=== PATIENT | female | born 1935 | race Caucasian/White ===

== ENCOUNTER 2016-04-08 10:45 | Day surgery (SDC) | payer MEDICARE, OTHER ==
[~2016-04-08 10:45] MED LIST: B-COTAB41 PO; BIOT10004 PO; DICL50TA3 PO; ESCI20TA PO; ESTR0.5T PO; LORA0.5T PO; MECL25CH PO; MEDR2.5T19 PO; MIRA50TA PO; SIMV40TA OR
[2016-04-08] MEDS ORDERED: MEDR2.5T2 PO (12:00)
[2016-04-08] MEDS ORDERED: ESCI20TA PO (12:00)
[2016-04-08] MEDS ORDERED: DICL75TA PO (12:00)
[2016-04-08] MEDS ORDERED: ESTR0.5T PO (12:00)
[2016-04-08] MEDS ORDERED: LORA-373 PO (12:00)
[2016-04-08] MEDS ORDERED: ESTR.3 PO (12:01)
[2016-04-08] MEDS ORDERED: UMEC1AER INH (12:01)
[2016-04-08] MEDS ORDERED: SIMV40TA PO (12:01)
[2016-04-08] MEDS ORDERED: ceFAZolin INJ 1,000 MG VIAL ONE (12:10)
[2016-04-08] MEDS ORDERED: MIDAZOLAM HCL 2 MG/2 ML VIAL ONE (12:11)
[2016-04-08] MEDS ORDERED: LIDOCAINE HCL 2% 50 ML VIAL ONE (12:40)
[2016-04-08] MEDS ORDERED: ceFAZolin 2 GM PREMIX 50 ML IV SCH (12:45)
[2016-04-08] MEDS ORDERED: VANCOMYCIN 1000 MG/NS 250 ML IV SCH ×2 (12:45)
[2016-04-08] MEDS ORDERED: CHLORHEXIDINE GLUCONATE 2 % 1 PACK (2 CLOTHS) TOP SCH (12:45)
[2016-04-08] MEDS ORDERED: MUPIROCIN 2% OINT 1 APPLIC/GM SYR NASAL SCH (12:45)
[2016-04-08] MEDS ORDERED: POVIDONE IODINE 5% (ANTISEPSIS KIT) 4 APPLICATIONS EACH NARE SCH (12:45)
[2016-04-08] MEDS ORDERED: NS 1000 ML IV SCH (12:45)
--- NOTE | 2016-04-08 13:37 | MA ---
cc: RASHARD VELEZ MD DATE: 04/08/2016 PREPROCEDURE DIAGNOSIS: Transient ischemic attack/ cerebrovascular accident. POSTPROCEDURE DIAGNOSIS: Successful loop recorder insertion. PROCEDURE PREFORMED: Loop recorder insertion with moderate sedation. DESCRIPTION OF THE PROCEDURE: The patient was brought to the DOC unit in the post ictal state after informed consent was obtained, 2 mg of Versed and 15 mcg of Fentanyl were given for moderate IV sedation. Next a WedWu reveal link loop recorder was then inserted subcutaneously in the left chest without complication. Tachy-Abhilash pause in atrial fibrillation detection was enabled. The serial number was [id number]. The initial R-wave was 0.2 millivolts. MD JOSE MARIA Kong/everette /1:16 PM /1:17 PM
== END 2016-04-08 14:43 | disposition home or self-care (01) ==
LOC: HDOC 10:45 → HDIC 10:46 → HDOC 14:43
PROVIDERS: ATTEND Nuclear Medicine Nuclear Cardiology
DX: G45.9 Transient cerebral ischemic attack, unspecified (principal); R55 Syncope and collapse; R94.31 Abnormal electrocardiogram [ECG] [EKG]; E78.5 Hyperlipidemia, unspecified
CPT/HCPCS: 33282; C1764; J0690; J2250; J3010

== ENCOUNTER 2017-07-26 09:28 | Inpatient (IN) | payer MEDICARE, OTHER ==
[~2017-07-26] VITALS: Ht 162.6 cm; Wt 57.8 kg
[2017-07-26] VITALS (8 sets, daily range): BP systolic 122–151; BP diastolic 59–67; PULSE 86–95; RESP 18–20; TEMP 97.6–98; O2SAT 89–97
[~2017-07-26 09:28] MED LIST changes: +ALEV220T14 PO; +ASPI81TA23 PO; -B-COTAB41 PO; -BIOT10004 PO; -DICL50TA3 PO; +DICL75TA PO; -MECL25CH PO; -MEDR2.5T19 PO; +MEDR2.5T2 PO; -MIRA50TA PO; +MONT10TA4 PO; +OXYB15TA PO; -SIMV40TA OR; +SIMV40TA PO; +UMEC1AER INH
[2017-07-26] MEDS ORDERED: DULC10SU3 RECTAL (09:52)
[2017-07-26] MEDS ORDERED: HYDR-3133 PO (09:52)
[2017-07-26] MEDS ORDERED: HUMALOG SQ (09:52)
[2017-07-26] MEDS ORDERED: MILKSUS PO (09:52)
[2017-07-26] MEDS ORDERED: MIRT30TA PO (09:52)
[2017-07-26] MEDS ORDERED: DIPH25CA PO (09:52)
[2017-07-26] MEDS ORDERED: ACET25TA4 PO (09:52)
[2017-07-26] MEDS ORDERED: CIPR750T2 PO (09:52)
[2017-07-26] MEDS ORDERED: IPRASOL INH (09:52)
[2017-07-26] MEDS ORDERED: MEDR5TAB3 PO (09:52)
[2017-07-26] MEDS ORDERED: PRED10 PO (09:52)
[2017-07-26] MEDS ORDERED: CITRSOL4 PO (09:52)
[2017-07-26] MEDS ORDERED: SODIUM CHLORIDE 0.9% FLUSH 10 ML FLUSH IVF PRN (10:15)
--- NOTE | 2017-07-26 10:24 | PD ---
HPI Chief Complaint: ENT Complaint Time Seen by Provider: 10:02 Travel History International Travel<30 days: No Contact w/Intl Traveler<30days: No Traveled to known affect area: No History of Present Illness HPI This patient is sent from the long term due to shortness of breath. She reports a history of pulmonary fibrosis and wears 2 L nasal cannula around-the- clock. She has some dry cough and laryngitis which started yesterday. She denies fever or chest pain. Symptom severity is moderate. No alleviating factors. No exacerbating factors. She is getting IV antibiotics through a right arm PICC line, she says for pulmonary infection [facility] Past Medical History Arthritis: Yes (BACK) High Cholesterol: Yes Gastrointestinal Disorders: Yes ("WEAK STOMACH" RUPTURED COLON) Genitourinary: Yes (INCREASED URINATION AT NIGHT) Herniated Disk: Yes Implanted Vascular Access Dvce: Yes Respiratory: No Menopausal: Yes : 4 Para: 2 Miscarriage: 2 Past Surgical History Abdominal Surgery: Yes (colostomy reversed 1996) Eye Surgery: Yes (cataracts removed) Other Surgery: Yes (CHILDHOOD L3-L4 DISC REPAIR) Social History Alcohol Use: Yes (SOCIAL) Tobacco Use: No Substance Use: No Allergies-Medications (Allergen,Severity, Reaction): Coded Allergies: codeine (Unverified Allergy, Intermediate, HIVES, 07/26/17) phenobarbital (Unverified Allergy, Unknown, 07/26/17) Reported Meds & Prescriptions Reported Meds & Active Scripts Active Reported Prednisone 10 Mg Tab 10 Mg PO DAILY Mirtazapine 30 Mg Tab 30 Mg PO HS Milk of Magnesia Liq (Magnesium Hydroxide) 400 Mg/5 Ml Susp 30 Ml PO DAILY PRN Medroxyprogesterone Acetate 5 Mg Tab 2.5 Mg PO DAILY Start day 21 Hydroxyzine HCl 25 Mg Tab 25 Mg PO Q8HR Humalog Inj (Insulin Human Lispro) 1,000 Unit/10 Ml Vial 0-10 Units SQ ACHS Max dose at bedtime:( )units; sugars< 70,(0)units; sugars 150-199,(1)unit; sugars 200-249,(3)units; sugars 250-299,(5)units; sugars 300-349,(7)units; sugars more than 349,(9)units. Duoneb (Ipratropium-Albuterol Neb) 0.5-2.5 Mg/3 Ml Neb 1 Nebule INH Q4HR NEB Dulcolax Supp (Bisacodyl) 10 Mg Supp 10 Mg RECTAL DAILY PRN Citroma Liq (Magnesium Citrate) 300 Ml Liq 300 Ml PO DIRECTED Ciprofloxacin (Ciprofloxacin HCl) 750 Mg Tab 750 Mg PO BID Diphenhydramine (Diphenhydramine HCl) 25 Mg Cap 25 Mg PO Q8HR Acetaminophen Pm Extra St (Diphenhydramine-Acetaminophen) 500-25 mg Tab 500 Mg PO HS PRN Oxybutynin ER 24 HR (Oxybutynin Chloride) 15 Mg Tab 5 Mg PO DAILY Montelukast (Montelukast Sodium) 10 Mg Tab 10 Mg PO HS Simvastatin 40 Mg Tab 40 Mg PO HS Lorazepam 0.5 Mg Tab 0.5 Mg PO Q8HR PRN Estradiol 0.5 Mg Tab 0.5 Mg PO DAILY Escitalopram (Escitalopram Oxalate) 20 Mg Tab 20 Mg PO DAILY Review of Systems General / Constitutional: No: Fever Eyes: No: Visual changes HENT: Positive: Sore Throat, No: Headaches Cardiovascular: No: Chest Pain or Discomfort Respiratory: Positive: Cough, Shortness of Breath Gastrointestinal: No: Abdominal Pain Genitourinary: No: Dysuria Musculoskeletal: No: Pain Skin: No Rash Neurologic: No: Weakness Psychiatric: No: Depression Endocrine: No: Polydipsia Hematologic/Lymphatic: No: Easy Bruising Physical Exam Narrative GENERAL: Well-nourished, well-developed patient in no apparent distress. SKIN: Focused skin assessment reveals no rash and nodules. Skin is Warm and dry. HEAD: Atraumatic. Normocephalic. EYES: Pupils equal and round. No scleral icterus. No injection or drainage. ENT: No nasal bleeding or discharge. Mucous membranes pink and moist. NECK: Trachea midline. No JVD. CARDIOVASCULAR: Regular rate and rhythm. No murmur appreciated. RESPIRATORY: No accessory muscle use. Bilateral crackles are present. Breath sounds equal bilaterally. GASTROINTESTINAL: Abdomen soft, non-tender, nondistended. Hepatic and splenic margins not palpable. MUSCULOSKELETAL: No obvious deformities. No clubbing. No cyanosis. No edema. Has a PICC line in the right arm NEUROLOGICAL: Awake and alert. No obvious cranial nerve deficits. Motor grossly within normal limits. Normal speech. PSYCHIATRIC: Appropriate mood and affect; insight and judgment is a bit off but she answers questions reasonably well. Data Data Last Documented VS Vital Signs Date Time Temp Pulse Resp B/P (MAP) Pulse Ox O2 Delivery O2 Flow Rate FiO2 07/26/17 16:16 141/67 (91) 07/26/17 16:09 89 18 94 Nasal Cannula 3.00 07/26/17 09:38 98.0 Orders Orders Complete Blood Count With Diff (07/26/17 10:15) Basic Metabolic Panel (Bmp) (07/26/17 10:15) Arterial Blood Gas (Abg) (07/26/17 10:15) Iv Access Insert/Monitor (07/26/17 10:15) Ecg Monitoring (07/26/17 10:15) Oximetry (07/26/17 10:15) Oxygen Administration (07/26/17 10:15) Chest, Single Ap (07/26/17 10:15) Sodium Chloride 0.9% Flush (Ns Flush) (07/26/17 10:15) Radiology Film Requests (07/26/17 ) (Hub Use Only)Inp Phy Cons/Ref (07/26/17 ) Labs Laboratory Tests Test 07/26/17 10:35 07/26/17 10:38 White Blood Count 9.1 TH/MM3 Red Blood Count 2.95 MIL/MM3 Hemoglobin 8.9 GM/DL Hematocrit 28.2 % Mean Corpuscular Volume 95.7 FL Mean Corpuscular Hemoglobin 30.2 PG Mean Corpuscular Hemoglobin Concent 31.6 % Red Cell Distribution Width 17.4 % Platelet Count 223 TH/MM3 Mean Platelet Volume 7.3 FL Neutrophils (%) (Auto) 68.8 % Lymphocytes (%) (Auto) 18.3 % Monocytes (%) (Auto) 7.5 % Eosinophils (%) (Auto) 5.0 % Basophils (%) (Auto) 0.4 % Neutrophils # (Auto) 6.2 TH/MM3 Lymphocytes # (Auto) 1.7 TH/MM3 Monocytes # (Auto) 0.7 TH/MM3 Eosinophils # (Auto) 0.5 TH/MM3 Basophils # (Auto) 0.0 TH/MM3 CBC Comment DIFF FINAL Differential Comment Blood Urea Nitrogen 27 MG/DL Creatinine 2.08 MG/DL Random Glucose 125 MG/DL Calcium Level 8.4 MG/DL Sodium Level 143 MEQ/L Potassium Level 4.0 MEQ/L Chloride Level 108 MEQ/L Carbon Dioxide Level 23.5 MEQ/L Anion Gap 12 MEQ/L Estimat Glomerular Filtration Rate 23 ML/MIN Blood Gas Puncture Site LT RADIAL Blood Gas Patient Temperature 98.6 Blood Gas HCO3 26 mmol/L Blood Gas Base Excess 2.2 mmol/L Blood Gas Oxygen Saturation 91 % Arterial Blood pH 7.43 Arterial Blood Partial Pressure CO2 40 mmHg Arterial Blood Partial Pressure O2 69 mmHG Arterial Blood Oxygen Content 11.4 Vol % Arterial Blood Carboxyhemoglobin 1.4 % Arterial Blood Methemoglobin 0.7 % Blood Gas Hemoglobin 8.9 G/DL Oxygen Delivery Device NASAL CANNULA Blood Gas Liter Flow 3 L/M MDM Medical Decision Making Medical Screen Exam Complete: Yes Emergency Medical Condition: Yes Medical Record Reviewed: Yes Differential Diagnosis Pulmonary fibrosis, pneumonia, laryngitis Narrative Course I have reviewed the patient's electronic medical record. Reviewed all her long term paperwork including medication list and recent lab studies from 2 days ago IV placed and labs sent I reviewed her chest x-ray which shows a right-sided pneumonia ABG on her 3 L of oxygen shows PO2 of 69 Metabolic profile reveals creatinine of 2.08, up from prior of 1.7 a few days ago Discussed with family members. Patient's son was very upset about the prospect of her being discharged back to the nursing facility. Reports severe dyspnea on exertion and worse today than usual. Patient apparently was found significant hypoxic this morning at the facility. I reviewed with her shift leader and her long term physician. She has multiple reasons to be dyspneic. She has COPD and pulmonary fibrosis and pneumonia Dr. Harry will admit her for further workup Diagnosis Primary Impression: Acute respiratory failure with hypoxia Additional Impressions: COPD exacerbation Near syncope Admitting Information Admitting Physician Requests: Admit Clem Joshua MD Jul 26, 2017 10:24
[2017-07-26 11:10] LABS: AUTOMATED NEUTROPHIL # 6.2 TH/MM3 (1.8-7.7); BASOPHIL % 0.4 % (0.0-2.0); EOSINOPHIL # 0.5 TH/MM3 (0-0.4); HEMATOCRIT 28.2 % (35.0-46.0); HEMOGLOBIN 8.9 GM/DL (11.6-15.3); LYMPH % 18.3 % (9.0-44.0); LYMPHOCYTE # 1.7 TH/MM3 (1.0-4.8); MEAN CELL VOLUME 95.7 FL (80.0-100.0); MEAN CORPUSCULAR HEMOGLOBIN 30.2 PG (27.0-34.0); MEAN CORPUSCULAR HGB CONC 31.6 % (32.0-36.0); MEAN PLATELET VOLUME 7.3 FL (7.0-11.0); MONO % 7.5 % (0.0-8.0); MONOCYTE # 0.7 TH/MM3 (0-0.9); NEUT % 68.8 % (16.0-70.0); PLATELET COUNT 223 TH/MM3 (150-450); RED BLOOD COUNT 2.95 MIL/MM3 (4.00-5.30); RED CELL DISTRIBUTION WIDTH 17.4 % (11.6-17.2); WHITE BLOOD COUNT 9.1 TH/MM3 (4.0-11.0)
--- NOTE | 2017-07-26 11:23 | RADRPT ---
EXAM DATE: 07/26/2017 11:01 AM EDT AGE/SEX: 82 years / Female INDICATIONS: Short of breath. CLINICAL DATA: This is the patient's initial encounter. Patient reports that signs and symptoms have been present for 1 day and indicates a pain score of 0/10. MEDICAL/SURGICAL HISTORY: Chronic obstructive pulmonary disease. None. COMPARISON: POI, CT CHEST W/O CONTRAST, 06/16/2017. . FINDINGS: A single portable frontal view the chest shows a new intra-alveolar opacity within the peripheral asp ects of the right lower lobe. Underlying chronic interstitial changes noted. No effusions. Heart is n ormal in size. Low lung volumes. A degenerative and scoliotic spine. CONCLUSION: 1. New intra-alveolar infiltrate within the right lower lobe. 2. Chronic interstitial changes. Electronically signed by: Fredi Corrigan MD 07/26/2017 11:22 AM EDT
[2017-07-26 11:27] LABS: BICARBONATE 23.5 MEQ/L (21.0-32.0); CALCIUM 8.4 MG/DL (8.5-10.1); CREATININE 2.08 MG/DL (0.50-1.00)
[2017-07-26] MEDS ORDERED: BISACODYL 10 MG SUPP RECTAL PRN ×2 (18:45→19:00)
[2017-07-26] MEDS ORDERED: DIPHENHYDRAMINE ACETAMINOPHEN PO PRN (18:45)
[2017-07-26] MEDS ORDERED: MAGNESIUM HYDROXIDE SUSP 30 ML CUP PO PRN (19:00)
[2017-07-26] MEDS ORDERED: SODIUM CHLORIDE 0.9% FLUSH 10 ML FLUSH IV FLUSH PRN (19:00)
[2017-07-26] MEDS ORDERED: SENNOSIDES 8.6 MG TAB PO PRN (19:00)
[2017-07-26] MEDS ORDERED: LACTULOSE SYRUP 20 GM/30 ML CUP PO PRN (19:00)
[2017-07-26] MEDS ORDERED: NALOXONE HCL 0.4 MG/ML AMP IV PUSH PRN (19:00)
[2017-07-26] MEDS: RESP: ALBUTEROL 2.5 MG/IPRATROPIUM 0.5 MG NEB (SCH) INH ×2 (19:22→23:44)
[2017-07-26] MEDS ORDERED: ACETAMINOPHEN 500 MG CPLT PO PRN (19:30)
[2017-07-26] MEDS: CIPROFLOXACIN 750 MG TAB PO SCH (21:00)
[2017-07-26] MEDS ORDERED: PRAVASTATIN SOD 80 MG TAB PO SCH (21:00)
[2017-07-26] MEDS ORDERED: MIRTAZAPINE 15 MG TAB PO SCH (21:00)
[2017-07-26] MEDS: SODIUM CHLORIDE 0.9% FLUSH 10 ML FLUSH IV FLUSH SCH (23:36)
[2017-07-26] MEDS: SODIUM CHLOR 0.9% 1000 ML INJ 1,000 ML IV SCH (23:36)
[2017-07-26] MEDS: MONTELUKAST SODIUM 10 MG TAB PO SCH (23:36)
[2017-07-26] MEDS: DOCUSATE SODIUM 50 MG/SENNA 8.6 MG TAB PO SCH (23:36)
[2017-07-27] VITALS (13 sets, daily range): BP systolic 107–166; BP diastolic 62–73; PULSE 82–95; RESP 16–20; TEMP 97.6–98.2; O2SAT 90–100
[2017-07-27] MEDS: RESP: ALBUTEROL 2.5 MG/IPRATROPIUM 0.5 MG NEB (SCH) INH ×6 (04:21→23:44)
[2017-07-27 06:25] LABS: AUTOMATED NEUTROPHIL # 4.6 TH/MM3 (1.8-7.7); BASOPHIL % 0.3 % (0.0-2.0); EOSINOPHIL # 0.4 TH/MM3 (0-0.4); EOSINOPHIL % 5.1 % (0.0-4.0); HEMATOCRIT 29.3 % (35.0-46.0); HEMOGLOBIN 9.5 GM/DL (11.6-15.3); LYMPH % 26.5 % (9.0-44.0); MEAN CELL VOLUME 95.2 FL (80.0-100.0); MEAN CORPUSCULAR HEMOGLOBIN 30.8 PG (27.0-34.0); MEAN CORPUSCULAR HGB CONC 32.3 % (32.0-36.0); MEAN PLATELET VOLUME 7.4 FL (7.0-11.0); MONO % 7.3 % (0.0-8.0); MONOCYTE # 0.6 TH/MM3 (0-0.9); NEUT % 60.8 % (16.0-70.0); PLATELET COUNT 208 TH/MM3 (150-450); RED BLOOD COUNT 3.08 MIL/MM3 (4.00-5.30); RED CELL DISTRIBUTION WIDTH 17.4 % (11.6-17.2); WHITE BLOOD COUNT 7.6 TH/MM3 (4.0-11.0)
[2017-07-27 07:00] LABS: BICARBONATE 24.5 MEQ/L (21.0-32.0); CALCIUM 8.5 MG/DL (8.5-10.1); CREATININE 1.94 MG/DL (0.50-1.00)
[2017-07-27] MEDS: SODIUM CHLORIDE 0.9% FLUSH 10 ML FLUSH IV FLUSH SCH ×2 (09:00→20:18)
[2017-07-27] MEDS ORDERED: TOLTERODINE TARTRATE 2 MG CAP LA PO SCH (09:00)
[2017-07-27] MEDS ORDERED: ESCITALOPRAM OXALATE 20 MG TAB PO SCH (09:00)
[2017-07-27] MEDS: diphenhydrAMINE HCL 25 MG CAP PO PRN (09:07)
[2017-07-27] MEDS: DOCUSATE SODIUM 50 MG/SENNA 8.6 MG TAB PO SCH ×2 (09:08→20:18)
[2017-07-27] MEDS: CIPROFLOXACIN 750 MG TAB PO SCH (09:08)
[2017-07-27] MEDS: predniSONE 10 MG TAB PO SCH (09:08)
[2017-07-27] MEDS: ESTRADIOL 1 MG TAB PO SCH (09:08)
[2017-07-27] MEDS: SODIUM CHLOR 0.9% 1000 ML INJ 1,000 ML IV SCH ×2 (11:08→20:19)
[2017-07-27] MEDS: LORazepam 0.5 MG TAB PO PRN ×2 (12:41→22:56)
[2017-07-27] MEDS ORDERED: PILL SPLITTER OTHER PRN (14:15)
--- NOTE | 2017-07-27 14:29 | MB ---
cc: Mateo Marks MD DATE: 07/27/2017 HISTORY OF PRESENT ILLNESS: Ms. Begum is an 82-year-old white female with a history of chronic lung disease. I have taken this history primarily from her 2 children who are at the bedside and seem quite knowledgeable, but she has had an extensive prior history for at least the last 5, possibly 10 years, and she has been followed by Dr. De Leon in [place]. She has known COPD and was a former smoker of about 30-40 pack years, although she did quit smoking 30 years ago. Over the course of the last 6 months; however, she has had a steady decline. She also has pulmonary fibrosis that is a more recent diagnosis and according to the family, a CAT scan in comparison over about the last 6 months has shown significant progression in the fibrotic component of her disease. She has been on oxygen continuously since an initial hospitalization earlier this year in about March in [facility] [place]. She has been rehospitalized there once, has been in an outpatient infusion clinic twice for antibiotics for pseudomonas, and most recently after a hospital discharge was in a nursing facility locally, on oral therapy. The patient presented yesterday from the nursing facility because her O2 saturations were in the 70s. I asked her how she felt, and she said she just felt exhausted. Apparently, there was really no crisis with breathing other than the fact that her sat was low. Today, at the time of this exam, she is sitting upright, comfortable at rest. O2 saturations on 6 liters are 100%. The patient has been hospitalized twice, as I said, in [facility] [place] in the last several months. She was bronchoscoped recently after a CAT scan showed worsening in the fibrosis and the family tells me that she grew Pseudomonas. That is why she has been receiving the IV antibiotics. She denies chest pain or hemoptysis. She is comfortable at rest, but has dyspnea on minimal exertion. There is no significant prior cardiovascular history. On presentation here, and we have no films for comparison, but she has a right lower lobe infiltrate with chronic interstitial fibrotic changes. White count is normal, though, at 7600. Blood gases were actually fine on 3 liters; pO2 of 69, pH 7.4, pCO2 of 40. BUN and creatinine were elevated at 24 and 2. No sputum has been obtained. She is not producing a lot of sputum. PAST MEDICAL HISTORY: Not diabetic. Not hypertensive. No cardiovascular history. She did have a colostomy in about the , apparently "ruptured colon" that was then reversed. She has arthritis in her back, as well as scoliosis. Cataracts have been removed. ALLERGIES: CODEINE. FAMILY HISTORY: She was one of 14 children, 3 have from cancer, 3 have from heart disease. There is no lung disease in the family; in particular, no history of fibrosis. Her father of complication of blood clots in his 80s. Mother of old age late 80s. SOCIAL HISTORY: She is independent. She is . She had been living alone until these recent hospitalizations. These have been very debilitating for her. No excessive alcohol use and no smoking for years. REVIEW OF SYSTEMS: As noted above. No current abdominal complaints. No vomiting or diarrhea. No chronic edema. No orthopnea or PND. PHYSICAL EXAMINATION: VITAL SIGNS: Temperature 98 degrees, pulse is 80, respirations are 18 and nonlabored, O2 saturation on 3 liters 94%. HEENT: Sclerae are anicteric. NECK: Neck veins are flat. CHEST: Reveals a very distinct dry Velcro rales in both lungs, about fpc up in the back. No other congestion. No rhonchi or wheezes. HEART: Regular rhythm. No harsh murmur. EXTREMITIES: Peripheral edema. No calf tenderness. No clubbing. DISCUSSION: Ms. Begum presents with a complex pulmonary history, chronic obstructive pulmonary disease dating back apparently a number of years. More recently, she has developed pulmonary fibrosis, that based on the history that I am provided, has been progressive. Dr. De Leon has been caring for her, both inpatient and outpatient, for quite a long time and through all of these recent difficulties and admissions. She was readmitted here because of the drop in O2 saturation and she is in a local nursing facility here. Actually, based on her 02 saturation, her exam and this additional information, things looked fairly stable at present. The children had many questions, had an interest in knowing whether or not a second opinion could be rendered and I did the best I could to describe what seems apparent to me, but obviously there is a lot of data that I do not have. If she remains stable over the next 24 hours in terms of her O2 saturation, white count, and vital signs, I do not know that additional hospitalization at this point as he going to be an advantage. However, if she does go out and back to the nursing facility, I have suggested she immediately get back in touch with Dr. De Leon, who is her physician on a regular basis for a number of years and is familiar with all of these difficulties. Some discussion of the nature of her disease and whether or not it is reversible, or whether or not they need to consider a palliative care approach, which is something that they have discussed, would best be reviewed with him once she is discharged. Based on the history of having recently documented Pseudomonas, if antibiotics were given, I agree that Cipro is appropriate, but it sounds like she has had a lot of antibiotics recently and I am not sure that they are even necessary at present. Again that would be best addressed by her regular rescue instructor. She is also on a low dose of prednisone, which I would suggest continuing, along with aerosol therapy in light of the prior smoking history. Having no further recommendations acutely at present, I will not follow her regularly. However, if stable, again I have explained to them once she is discharged they should be back in contact with Dr. De Leon immediately so that they can be followed up as an outpatient and resolve some of these questions regarding the more chronic progressive nature of her chronic lung disease. R. MD DANA Ceja/JASON , 01:46 PM , 02:28 PM
[2017-07-27] MEDS: diphenhydrAMINE HCL 50 MG CAP PO PRN (17:10)
--- NOTE | 2017-07-27 17:45 | PD.ID.CON ---
History of Present Illness Service ID Consult Requested By Dr Grimm Reason for Consult Pulmonary infection Primary Care Physician Unknown Diagnoses: History of Present Illness 82 yo female , pt of Dr De Leon with IPF/COPD/ home O2 12/09 recently diagnosed with PSAE PNA, improved on IV abx which were switched to oral abx presented with worsening resp smx;' SOB, increasing hypoxia and dry cough She is unable to expectorate she is on 6 L of O2 and her sats are 92 % CXR from yday showed new intra-alveolar infiltrate within the right lower lobe along with chronic interstitial changes she also co skin itching Review of Systems Respiratory: COMPLAINS OF: Cough, Shortness of breath Cardiovascular: COMPLAINS OF: Dyspnea on Exertion Except as stated in HPI: all other systems reviewed are Neg Past Family Social History Allergies: Coded Allergies: codeine (Unverified Allergy, Intermediate, HIVES, 07/26/17) phenobarbital (Unverified Allergy, Unknown, 07/26/17) Past Medical History COPD IPF arthritis in her back, scoliosis. Past Surgical History have a colostomy in about the , apparently "ruptured colon" that was then reversed. Cataracts have been removed.ODEINE. Active Ordered Medications Medications where reviewed in EMR Antibiotics Include: cipro Family History She was one of 14 children, 3 have from cancer, 3 have from heart disease. There is no lung disease in the family; in particular, no history of fibrosis. Her father of complication of blood clots in his 80s. Mother of old age late 80s. Social History She is independent. She is . She had been living alone until these recent hospitalizations. These have been very debilitating for her. No excessive alcohol use and no smoking for years. quit tobacco 30 yrs ago Physical Exam Vital Signs Vital Signs Date Time Temp Pulse Resp B/P (MAP) Pulse Ox O2 Delivery O2 Flow Rate FiO2 07/27/17 16:04 97.9 91 17 110/66 (81) 92 07/27/17 16:00 91 07/27/17 12:04 97.6 83 17 142/64 (90) 97 07/27/17 12:00 82 07/27/17 08:46 98 Nasal Cannula 6.00 07/27/17 08:30 98 Nasal Cannula 6.00 07/27/17 08:04 97.9 92 16 145/64 (91) 100 07/27/17 08:00 93 07/27/17 07:00 Nasal Cannula 7.00 07/27/17 04:23 96 Nasal Cannula 5.00 07/27/17 04:02 83 07/27/17 04:00 97.9 88 19 166/68 (100) 99 07/27/17 00:00 98.2 92 19 107/62 (77) 95 07/26/17 23:47 97 Nasal Cannula 5.00 07/26/17 21:52 91 Nasal Cannula 6.00 07/26/17 20:26 97.6 95 20 143/67 (92) 89 Physical Exam CONSTITUTIONAL/GENERAL: This is an adequately nourished patient, in no apparent distress. TUBES/LINES/DRAINS: SKIN: No jaundice, rashes, or lesions. Skin temperature appropriate. Not diaphoretic. SKIN is dry with extensive solar elastosis lesion and excoriations. NO rash HEAD: Atraumatic. Normocephalic. EYES: Pupils equal and round and reactive. Extraocular motions intact. No scleral icterus. No injection or drainage. Fundi not examined. ENT: Hearing grossly normal. Nose without bleeding or purulent drainage. Throat without visible erythema, exudates, masses, or lesions. NECK: Trachea midline. Supple, nontender. No palpable thyroid enlargement or nodularity. CARDIOVASCULAR: Regular rate and rhythm without murmurs, gallops, or rubs. No JVD. Peripheral pulses symmetric. RESPIRATORY/CHEST: Symmetric, unlabored respirations.B/l fine crackles to auscultation. Breath sounds equal bilaterally. GASTROINTESTINAL: Abdomen soft, non-tender, nondistended. No hepato-splenomegaly , or palpable masses. No guarding. Bowel sounds present. GENITOURINARY: Without palpable bladder distension. MUSCULOSKELETAL: Extremities without clubbing, cyanosis, or edema. No joint tenderness or effusion noted. No calf tenderness. No mottling or clubbing. LYMPHATICS: No palpable cervical or supraclavicular adenopathy. NEUROLOGICAL: Awake and alert. Motor and sensory grossly within normal limits. Follows commands. Clear speech . Moves all extremities. PSYCHIATRIC: No obvious anxiety/depression. no apparent hallucinations or other psychotic thought process. Laboratory Laboratory Tests Test 07/27/17 05:28 White Blood Count 7.6 Red Blood Count 3.08 Hemoglobin 9.5 Hematocrit 29.3 Mean Corpuscular Volume 95.2 Mean Corpuscular Hemoglobin 30.8 Mean Corpuscular Hemoglobin Concent 32.3 Red Cell Distribution Width 17.4 Platelet Count 208 Mean Platelet Volume 7.4 Neutrophils (%) (Auto) 60.8 Lymphocytes (%) (Auto) 26.5 Monocytes (%) (Auto) 7.3 Eosinophils (%) (Auto) 5.1 Basophils (%) (Auto) 0.3 Neutrophils # (Auto) 4.6 Lymphocytes # (Auto) 2.0 Monocytes # (Auto) 0.6 Eosinophils # (Auto) 0.4 Basophils # (Auto) 0.0 CBC Comment DIFF FINAL Differential Comment Blood Urea Nitrogen 24 Creatinine 1.94 Random Glucose 86 Calcium Level 8.5 Sodium Level 146 Potassium Level 3.8 Chloride Level 110 Carbon Dioxide Level 24.5 Anion Gap 12 Estimat Glomerular Filtration Rate 25 Result Diagram: 07/27/17 0528 07/27/17 0528 Imaging Last Impressions Chest X-Ray 07/26/17 1015 Signed Impressions: CONCLUSION: 1. New intra-alveolar infiltrate within the right lower lobe. 2. Chronic interstitial changes. Assessment and Plan Assessment and Plan COPD/IPF, advanced chronic resp insufficiency New RLL PNA PSAE PNA recent will dw Dr De Leon CT chest sputum clx if feasible dc cipro start cefepime Discussed Condition With dghtr @ b/s Adelia Jaramillo MD Jul 27, 2017 17:45
--- NOTE | 2017-07-27 18:17 | HHI.HP ---
History of Present Illness Primary Care Physician Unknown Admission Diagnosis acute hypoxic resp failure, COPD, near syncope Diagnoses: (1) Acute respiratory failure with hypoxia (2) COPD exacerbation History of Present Illness 82 yo female , pt of Dr De Leon with IPF/COPD/ home O2 12/09 recently diagnosed with PSAE PNA, improved on IV abx which were switched to oral abx presented with worsening resp smx;' SOB, increasing hypoxia and dry cough She is unable to expectorate she is on 6 L of O2 and her sats are 92 % CXR from yday showed new intra-alveolar infiltrate within the right lower lobe along with chronic interstitial changes she also co skin itching Review of Systems Constitutional: COMPLAINS OF: Fatigue Cardiovascular: COMPLAINS OF: Syncope, Dyspnea on Exertion Past Family Social History Allergies: Coded Allergies: codeine (Unverified Allergy, Intermediate, HIVES, 07/26/17) phenobarbital (Unverified Allergy, Unknown, 07/26/17) Past Medical History Copd Pulmonary Fibrosis HLD DM Anxiety Past Surgical History ruptured colon with colostomy reversal L3 L4 disc repair Reported Medications Prednisone 10 Mg Tab 10 Mg PO DAILY Mirtazapine 30 Mg Tab 30 Mg PO HS Milk of Magnheber Liq (Magnesium Hydroxide) 400 Mg/5 Ml Susp 30 Ml PO DAILY PRN Medroxyprogesterone Acetate 5 Mg Tab 2.5 Mg PO DAILY Start day 21 Hydroxyzine HCl 25 Mg Tab 25 Mg PO Q8HR Humalog Inj (Insulin Human Lispro) 1,000 Unit/10 Ml Vial 0-10 Units SQ ACHS Max dose at bedtime:( )units; sugars< 70,(0)units; sugars 150-199,(1)unit; sugars 200-249,(3)units; sugars 250-299,(5)units; sugars 300-349,(7)units; sugars more than 349,(9)units. Duoneb (Ipratropium-Albuterol Neb) 0.5-2.5 Mg/3 Ml Neb 1 Nebule INH Q4HR NEB Dulcolax Supp (Bisacodyl) 10 Mg Supp 10 Mg RECTAL DAILY PRN Citroma Liq (Magnesium Citrate) 300 Ml Liq 300 Ml PO DIRECTED Ciprofloxacin (Ciprofloxacin HCl) 750 Mg Tab 750 Mg PO BID Diphenhydramine (Diphenhydramine HCl) 25 Mg Cap 25 Mg PO Q8HR Acetaminophen Pm Extra St (Diphenhydramine-Acetaminophen) 500-25 mg Tab 500 Mg PO HS PRN Oxybutynin ER 24 HR (Oxybutynin Chloride) 15 Mg Tab 5 Mg PO DAILY Montelukast (Montelukast Sodium) 10 Mg Tab 10 Mg PO HS Simvastatin 40 Mg Tab 40 Mg PO HS Lorazepam 0.5 Mg Tab 0.5 Mg PO Q8HR PRN Estradiol 0.5 Mg Tab 0.5 Mg PO DAILY Escitalopram (Escitalopram Oxalate) 20 Mg Tab 20 Mg PO DAILY Active Ordered Medications Current Medications Medications (Trade) Dose Ordered Sig/Yogi Route Start Time Stop Time Status Last Admin (Estradiol) 0.5 mg DAILY PO 07/27/17 09:00 07/27/17 09:08 (Duoneb Neb) 1 ampule Q4HR NEB INH 07/26/17 20:00 07/27/17 16:12 (Ativan) 0.5 mg Q8HR PRN PO 07/26/17 18:45 07/27/17 12:41 (Provera) 2.5 mg DAILY PO 07/27/17 09:00 07/27/17 09:08 (Singulair) 10 mg HS PO 07/26/17 21:00 07/26/17 23:36 (Deltasone) 10 mg DAILY PO 07/27/17 09:00 07/27/17 09:08 (NS Flush) 2 ml UNSCH PRN IV FLUSH 07/26/17 19:00 (NS Flush) 2 ml BID IV FLUSH 07/26/17 21:00 07/26/17 23:36 (Narcan Inj) 0.4 mg UNSCH PRN IV PUSH 07/26/17 19:00 (Aria-Colace) 1 tab BID PO 07/26/17 21:00 07/27/17 09:08 (Milk Of Magnesia Liq) 30 ml Q12H PRN PO 07/26/17 19:00 (Senokot) 17.2 mg Q12H PRN PO 07/26/17 19:00 (Dulcolax Supp) 10 mg DAILY PRN RECTAL 07/26/17 19:00 (Lactulose Liq) 30 ml DAILY PRN PO 07/26/17 19:00 (Tylenol) 500 mg HS PRN PO 07/26/17 19:30 (Benadryl) 25 mg HS PRN PO 07/26/17 19:30 07/27/17 09:07 Sodium Chloride 1,000 ml @ 100 mls/hr Q10H IV 07/26/17 22:00 07/27/17 11:08 (Benadryl) 50 mg Q8H PRN PO 07/27/17 10:15 07/27/17 17:10 (Pill Splitter) 1 ea UNSCH PRN OTHER 07/27/17 14:15 Cefepime HCl 2000 mg/Sodium Chloride 100 ml @ 200 mls/hr Q12H IV 07/27/17 18:00 UNV Family History Father of blood clots Mother of old age in 80's She has 13 siblings, 3 of cancer and 3 of heart disease Social History Remote smoker Denies alcohol No substance abuse Physical Exam Vital Signs Vital Signs Date Time Temp Pulse Resp B/P (MAP) Pulse Ox O2 Delivery O2 Flow Rate FiO2 07/27/17 16:04 97.9 91 17 110/66 (81) 92 07/27/17 16:00 91 07/27/17 12:04 97.6 83 17 142/64 (90) 97 07/27/17 12:00 82 07/27/17 08:46 98 Nasal Cannula 6.00 07/27/17 08:30 98 Nasal Cannula 6.00 07/27/17 08:04 97.9 92 16 145/64 (91) 100 07/27/17 08:00 93 07/27/17 07:00 Nasal Cannula 7.00 07/27/17 04:23 96 Nasal Cannula 5.00 07/27/17 04:02 83 07/27/17 04:00 97.9 88 19 166/68 (100) 99 07/27/17 00:00 98.2 92 19 107/62 (77) 95 07/26/17 23:47 97 Nasal Cannula 5.00 07/26/17 21:52 91 Nasal Cannula 6.00 07/26/17 20:26 97.6 95 20 143/67 (92) 89 Physical Exam GENERAL: This is a well-nourished, well-developed patient, female in mild distress r/t puritis SKIN: No rashes skin warm and dry. HEAD: Atraumatic. Normocephalic. No temporal or scalp tenderness. EYES: Pupils equal round and reactive. Extraocular motions intact. No scleral icterus. No injection or drainage. ENT: Nose without bleeding, purulent drainage or septal hematoma.. Airway patent. NECK: Trachea midline.Supple, nontender CARDIOVASCULAR: Regular rate and rhythm without murmurs, gallops, or rubs. RESPIRATORY: Clear to auscultation. Breath sounds equal bilaterally. No wheezes , rhonchi GASTROINTESTINAL: Abdomen soft, non-tender, nondistended MUSCULOSKELETAL: Extremities without clubbing, cyanosis, or edema. NEUROLOGICAL: Awake and alert, Normal speech. Laboratory Laboratory Tests Test 07/27/17 05:28 White Blood Count 7.6 Red Blood Count 3.08 Hemoglobin 9.5 Hematocrit 29.3 Mean Corpuscular Volume 95.2 Mean Corpuscular Hemoglobin 30.8 Mean Corpuscular Hemoglobin Concent 32.3 Red Cell Distribution Width 17.4 Platelet Count 208 Mean Platelet Volume 7.4 Neutrophils (%) (Auto) 60.8 Lymphocytes (%) (Auto) 26.5 Monocytes (%) (Auto) 7.3 Eosinophils (%) (Auto) 5.1 Basophils (%) (Auto) 0.3 Neutrophils # (Auto) 4.6 Lymphocytes # (Auto) 2.0 Monocytes # (Auto) 0.6 Eosinophils # (Auto) 0.4 Basophils # (Auto) 0.0 CBC Comment DIFF FINAL Differential Comment Blood Urea Nitrogen 24 Creatinine 1.94 Random Glucose 86 Calcium Level 8.5 Sodium Level 146 Potassium Level 3.8 Chloride Level 110 Carbon Dioxide Level 24.5 Anion Gap 12 Estimat Glomerular Filtration Rate 25 Result Diagram: 07/27/17 0528 07/27/17 0528 Imaging Last 72 hours Impressions Chest X-Ray 07/26/17 1015 Signed Impressions: CONCLUSION: 1. New intra-alveolar infiltrate within the right lower lobe. 2. Chronic interstitial changes. Caprini VTE Risk Assessment Caprini VTE Risk Assessment: Mod/High Risk (score >= 2) Caprini Risk Assessment Model Point Value = 1 Point Value = 2 Point Value = 3 Point Value = 5 Age 41-60 Minor surgery BMI > 25 kg/m2 Swollen legs Varicose veins or History of unexplained or recurrent spontaneous Oral contraceptives or hormone replacement Sepsis (< 1 month) Serious lung disease, including pneumonia (< 1 month) Abnormal pulmonary function Acute myocardial infarction Congestive heart failure (< 1 month) History of inflammatory bowel disease Medical patient at bed rest Age 61-74 Arthroscopic surgery Major open surgery (> 45 min) Laparoscopic surgery (> 45 min) Malignancy Confined to bed (> 72 hours) Immobilizing plaster cast Central venous access Age >= 75 History of VTE Family history of VTE Factor V Leiden Prothrombin [id number] Lupus anticoagulant Anticardiolipin antibodies Elevated serum homocysteine Heparin-induced thrombocytopenia Other congenital or acquired thrombophilia Stroke (< 1 month) Elective arthroplasty Hip, pelvis, or leg fracture Acute spinal cord injury (< 1 month) Prophylaxis Regimen Total Risk Factor Score Risk Level Prophylaxis Regimen 0-1 Low Early ambulation 2 Moderate Order ONE of the following: *Sequential Compression Device (SCD) *Heparin 5000 units SQ BID 3-4 Higher Order ONE of the following medications: *Heparin 5000 units SQ TID *Enoxaparin/Lovenox 40 mg SQ daily (WT < 150 kg, CrCl > 30 mL/min) *Enoxaparin/Lovenox 30 mg SQ daily (WT < 150 kg, CrCl > 10-29 mL/min) *Enoxaparin/Lovenox 30 mg SQ BID (WT < 150 kg, CrCl > 30 mL/min) AND/OR *Sequential Compression Device (SCD) 5 or more Highest Order ONE of the following medications: *Heparin 5000 units SQ TID (Preferred with Epidurals) *Enoxaparin/Lovenox 40 mg SQ daily (WT < 150 kg, CrCl > 30 mL/min) *Enoxaparin/Lovenox 30 mg SQ daily (WT < 150 kg, CrCl > 10-29 mL/min) *Enoxaparin/Lovenox 30 mg SQ BID (WT < 150 kg, CrCl > 30 mL/min) AND *Sequential Compression Device (SCD) Assessment and Plan Problem List: (1) Acute respiratory failure with hypoxia ICD Codes: J96.01 - Acute respiratory failure with hypoxia Status: Acute Plan: Oxygen supplement, on cont home o2. Maintain saturation, Bronchodilators Pulmonary consult (2) RLL pneumonia ICD Codes: J18.1 - Lobar pneumonia, unspecified organism Plan: ID consult, Hx of Pseudomonas On antibiotics, bronchodilators, maintain saturations. (3) COPD exacerbation ICD Codes: J44.1 - Chronic obstructive pulmonary disease with (acute) exacerbation Status: Acute Plan: Pulmonary consult, Maintain sat's Bronchodilators (4) LOVE (acute kidney injury) ICD Codes: N17.9 - Acute kidney failure, unspecified Plan: Cont IVF, monitor BMP consult renal for decline (5) HLD (hyperlipidemia) ICD Codes: E78.5 - Hyperlipidemia, unspecified Plan: cont home medication Statin therapy Cortney Delgado Jul 27, 2017 18:17
[2017-07-27] MEDS: MONTELUKAST SODIUM 10 MG TAB PO SCH (20:18)
[2017-07-27] MEDS: ENOXAPARIN SODIUM 30 MG/0.3 ML SYRINGE SQ SCH (20:18)
[2017-07-27] MEDS: CEFEPIME INJ 2,000 MG in SODIUM CHLORIDE 0.9% INJ 100 ML IV SCH (20:19)
[2017-07-27] MEDS ORDERED: CIPROFLOXACIN 750 MG TAB PO SCH (21:00)
--- NOTE | 2017-07-27 21:12 | RADRPT ---
EXAM DATE: 07/27/2017 9:01 PM EDT AGE/SEX: 82 years / Female INDICATIONS: Shortness of breath. CLINICAL DATA: This is the patient's initial encounter. Patient reports that signs and symptoms have been present for 1 day and indicates a pain score of 0/10. MEDICAL/SURGICAL HISTORY: Chronic obstructive pulmonary disease. Pulmonary fibrosis. . RADIATION DOSE: 9.07 CTDI (mGy) COMPARISON: POI, CT CHEST W/O CONTRAST, 06/16/2017. . TECHNIQUE: Multiple contiguous axial images were obtained through the chest without contrast. Image s were obtained in suspended respiration using multiple row detector helical technique. Using automa joshua exposure control and adjustment of the mA and/or kV according to patient size, radiation dose was kept as low as reasonably achievable to obtain optimal diagnostic quality images. FINDINGS: Lungs: There is respiratory motion artifact. There are abnormal subpleural interstitial opacities bi laterally more severe in the lower lung zones. These consist of septal thickening or bronchiectasis a nd possible areas of honeycombing. There is also subpleural mild consolidation. The nodular area desc ribed previously is stable. However, there is a new small left pleural effusion. There is a stable remy ng cyst in the left lower lobe measuring approximately 4.5 cm. Mediastinum: The heart and great vessels demonstrate no acute abnormality. No lymphadenopathy is pre sent. There is severe atherosclerotic disease of the aorta with coronary artery calcification. Pleurae: There is a new small left pleural effusion. Axillae: No lymphadenopathy. Musculoskeletal: The bones and soft tissues demonstrate no acute abnormality. There are degenerativ e changes of the thoracic spine with lumbar scoliosis. Miscellaneous: The visualized upper abdominal structures demonstrate no acute abnormality. CONCLUSION: 1. Examination quality is degraded by respiratory motion artifact. There is abnormal interstitial remy ng disease bilaterally with features suggestive of idiopathic pulmonary fibrosis or UIP. 2. There is a new small left pleural effusion. 3. Severe atherosclerotic disease and coronary artery calcification. Electronically signed by: Sumeet Aiken MD 07/27/2017 9:10 PM EDT
[2017-07-28] VITALS (12 sets, daily range): BP systolic 128–174; BP diastolic 66–89; PULSE 88–102; RESP 18–24; TEMP 97.6–98.5; O2SAT 90–100
[2017-07-28] MEDS: diphenhydrAMINE HCL 50 MG CAP PO PRN ×2 (01:56→19:32)
[2017-07-28] MEDS: RESP: ALBUTEROL 2.5 MG/IPRATROPIUM 0.5 MG NEB (SCH) INH ×5 (03:33→19:21)
[2017-07-28] MEDS: SODIUM CHLOR 0.9% 1000 ML INJ 1,000 ML IV SCH ×2 (04:00→11:46)
[2017-07-28 06:14] LABS: BASOPHIL % 0.3 % (0.0-2.0); EOSINOPHIL # 0.3 TH/MM3 (0-0.4); EOSINOPHIL % 3.9 % (0.0-4.0); HEMATOCRIT 27.1 % (35.0-46.0); HEMOGLOBIN 8.8 GM/DL (11.6-15.3); LYMPH % 22.4 % (9.0-44.0); LYMPHOCYTE # 1.7 TH/MM3 (1.0-4.8); MEAN CELL VOLUME 94.7 FL (80.0-100.0); MEAN CORPUSCULAR HEMOGLOBIN 30.9 PG (27.0-34.0); MEAN CORPUSCULAR HGB CONC 32.6 % (32.0-36.0); MEAN PLATELET VOLUME 7.5 FL (7.0-11.0); MONO % 8.9 % (0.0-8.0); MONOCYTE # 0.7 TH/MM3 (0-0.9); NEUT % 64.5 % (16.0-70.0); PLATELET COUNT 204 TH/MM3 (150-450); RED BLOOD COUNT 2.86 MIL/MM3 (4.00-5.30); RED CELL DISTRIBUTION WIDTH 17.3 % (11.6-17.2); WHITE BLOOD COUNT 7.7 TH/MM3 (4.0-11.0)
[2017-07-28 06:41] LABS: BICARBONATE 24.6 MEQ/L (21.0-32.0); CALCIUM 8.3 MG/DL (8.5-10.1); CREATININE 1.84 MG/DL (0.50-1.00)
--- NOTE | 2017-07-28 08:49 | RADRPT ---
EXAM DATE: 07/28/2017 8:43 AM EDT AGE/SEX: 82 years / Female INDICATIONS: Right upper quadrant pain. CLINICAL DATA: This is the patient's initial encounter. Patient reports that signs and/or symptoms h ave been present for 1 day and indicates a pain score of 3/10. MEDICAL/SURGICAL HISTORY: Chronic obstructive pulmonary disease. Hypercholesterolemia. Dentures. D izziness. Syncope. Angina. Hearing aids. Hyperlipidemia. Sleep apnea. Dyspnea. Pulmonary fibrosis. Ru ptured colon. Urinary tract infection. Arthritis. Herniated disk. Depression. Anxiety. . Bilateral c ataract surgery. Back surgery. COMPARISON: No prior exams available for comparison. MEASUREMENTS (cm x cm x cm): Liver:__ 14.4 cm length Common Bile Duct:__ 5mm FINDINGS: Liver: Normal echotexture without focal lesion or ductal dilatation. Portal Vein: Hepatopedal flow seen in portal vein. Common Duct: No intraluminal mass or stone visualized. Gallbladder: Demonstrates no wall thickening or pericholecystic fluid. No stones visualized. Pancreas: The visualized portions are within normal limits Right Kidney: No mass or hydronephrosis Other: None. CONCLUSION: Unremarkable sonographic appearance of the right upper quadrant Electronically signed by: Sumeet Vieyra MD 07/28/2017 8:48 AM EDT
[2017-07-28] MEDS: predniSONE 10 MG TAB PO SCH (08:59)
[2017-07-28] MEDS: ESTRADIOL 1 MG TAB PO SCH (08:59)
[2017-07-28] MEDS: SODIUM CHLORIDE 0.9% FLUSH 10 ML FLUSH IV FLUSH SCH ×2 (08:59→20:57)
[2017-07-28] MEDS: DOCUSATE SODIUM 50 MG/SENNA 8.6 MG TAB PO SCH ×2 (08:59→20:56)
--- NOTE | 2017-07-28 09:49 | HHI.PR ---
Subjective Remarks UP in chair, son at bedside. Denies CP Sat's maintained on 6 liters Objective Vital Signs Date Time Temp Pulse Resp B/P (MAP) Pulse Ox O2 Delivery O2 Flow Rate FiO2 07/28/17 08:04 97.7 88 18 128/67 (87) 100 07/28/17 07:51 92 Nasal Cannula 6.00 07/28/17 04:00 98.5 92 19 157/66 (96) 99 07/28/17 00:00 97.6 102 19 159/66 (97) 90 07/27/17 21:37 90 Nasal Cannula 6.00 07/27/17 20:00 97.7 95 20 128/73 (91) 91 07/27/17 16:04 97.9 91 17 110/66 (81) 92 07/27/17 16:00 91 07/27/17 12:04 97.6 83 17 142/64 (90) 97 07/27/17 12:00 82 I/O 07/27/17 07/27/17 07/27/17 07/28/17 07/28/17 07/28/17 07:00 15:00 23:00 07:00 15:00 23:00 Intake Total 120 ml 400 ml 3580 ml 1222 ml Output Total 0 ml 400 ml 350 ml Balance 120 ml 400 ml 3180 ml 872 ml Intake Oral 120 ml 480 ml 222 ml IV Total 400 ml 3100 ml 1000 ml Output Urine Total 0 ml 400 ml 350 ml # Voids 2 1 # Bowel Movements 1 0 Result Diagram: 07/28/17 0548 07/28/17 0548 Imaging Last 72 hours Impressions Gall Bladder Ultrasound 07/28/17 0000 Signed Impressions: CONCLUSION: Unremarkable sonographic appearance of the right upper quadrant Chest CT 07/27/17 0000 Signed Impressions: CONCLUSION: 1. Examination quality is degraded by respiratory motion artifact. There is ab normal interstitial lung disease bilaterally with features suggestive of idiopa thic pulmonary fibrosis or UIP. 2. There is a new small left pleural effusion. 3. Severe atherosclerotic disease and coronary artery calcification. Chest X-Ray 07/26/17 1015 Signed Impressions: CONCLUSION: 1. New intra-alveolar infiltrate within the right lower lobe. 2. Chronic interstitial changes. Objective Remarks GENERAL: This is a well-nourished, well-developed patient, female in mild distress r/t puritis SKIN: No rashes skin warm and dry. HEAD: Atraumatic. Normocephalic. No temporal or scalp tenderness. EYES: Pupils equal round and reactive. Extraocular motions intact. No scleral icterus. No injection or drainage. ENT: Nose without bleeding, purulent drainage or septal hematoma.. Airway patent. NECK: Trachea midline.Supple, nontender CARDIOVASCULAR: Regular rate and rhythm without murmurs, gallops, or rubs. RESPIRATORY: Breath sounds equal bilaterally. crackles to right GASTROINTESTINAL: Abdomen soft, non-tender, nondistended MUSCULOSKELETAL: Extremities without clubbing, cyanosis, or edema. NEUROLOGICAL: Awake and alert, Normal speech. Medications and IVs Current Medications Medications (Trade) Dose Ordered Sig/Yogi Route Start Time Stop Time Status Last Admin (Estradiol) 0.5 mg DAILY PO 07/27/17 09:00 07/28/17 08:59 (Duoneb Neb) 1 ampule Q4HR NEB INH 07/26/17 20:00 07/28/17 07:49 (Ativan) 0.5 mg Q8HR PRN PO 07/26/17 18:45 07/27/17 22:56 (Provera) 2.5 mg DAILY PO 07/27/17 09:00 07/28/17 08:59 (Singulair) 10 mg HS PO 07/26/17 21:00 07/27/17 20:18 (Deltasone) 10 mg DAILY PO 07/27/17 09:00 07/28/17 08:59 (NS Flush) 2 ml UNSCH PRN IV FLUSH 07/26/17 19:00 (NS Flush) 2 ml BID IV FLUSH 07/26/17 21:00 07/28/17 08:59 (Narcan Inj) 0.4 mg UNSCH PRN IV PUSH 07/26/17 19:00 (Aria-Colace) 1 tab BID PO 07/26/17 21:00 07/28/17 08:59 (Milk Of Magnesia Liq) 30 ml Q12H PRN PO 07/26/17 19:00 (Senokot) 17.2 mg Q12H PRN PO 07/26/17 19:00 (Dulcolax Supp) 10 mg DAILY PRN RECTAL 07/26/17 19:00 (Lactulose Liq) 30 ml DAILY PRN PO 07/26/17 19:00 (Tylenol) 500 mg HS PRN PO 07/26/17 19:30 (Benadryl) 25 mg HS PRN PO 07/26/17 19:30 07/27/17 09:07 Sodium Chloride 1,000 ml @ 100 mls/hr Q10H IV 07/26/17 22:00 07/28/17 04:00 (Benadryl) 50 mg Q8H PRN PO 07/27/17 10:15 07/28/17 01:56 (Pill Splitter) 1 ea UNSCH PRN OTHER 07/27/17 14:15 Cefepime HCl 2000 mg/Sodium Chloride 100 ml @ 200 mls/hr Q24H IV 07/27/17 20:00 07/27/17 20:19 (Lovenox Inj) 30 mg Q24H SQ 07/27/17 20:00 07/27/17 20:18 Assessment and Plan Problem List: (1) Acute respiratory failure with hypoxia ICD Codes: J96.01 - Acute respiratory failure with hypoxia Status: Acute Plan: Oxygen supplement, on cont home o2. Maintain saturation, Bronchodilators Pulmonary consult (2) RLL pneumonia ICD Codes: J18.1 - Lobar pneumonia, unspecified organism Plan: ID consult, Hx of Pseudomonas On antibiotics, bronchodilators, maintain saturations. (3) COPD exacerbation ICD Codes: J44.1 - Chronic obstructive pulmonary disease with (acute) exacerbation Status: Acute Plan: Pulmonary consult, Maintain sat's Bronchodilators (4) LOVE (acute kidney injury) ICD Codes: N17.9 - Acute kidney failure, unspecified Plan: Cont IVF, monitor BMP consult renal for decline (5) HLD (hyperlipidemia) ICD Codes: E78.5 - Hyperlipidemia, unspecified Plan: cont home medication Statin therapy Assessment and Plan 07/28/17- Slept well, working with thearpy this am. She is SOB w/ excertion. CT of shows Pulmonary Fibrosis. Abd US negative for gall stones, checked for itching. Family would like to discuss DC palns and is requesting Hospice consult. Referral made Cortney Delgado Jul 28, 2017 09:49
--- NOTE | 2017-07-28 19:37 | HHI.IDPN ---
Subjective Subjective Remarks remains on 6 L of O2 remains afebrile CT done: mainly IPF changes Antibiotics cefepime Allergies: Coded Allergies: codeine (Unverified Allergy, Intermediate, HIVES, 07/26/17) phenobarbital (Unverified Allergy, Unknown, 07/26/17) Objective . Vital Signs Date Time Temp Pulse Resp B/P (MAP) Pulse Ox O2 Delivery O2 Flow Rate FiO2 07/28/17 16:18 95 Nasal Cannula 6.00 07/28/17 16:04 97.7 88 18 168/76 (106) 98 07/28/17 12:04 97.6 92 19 164/89 (114) 95 07/28/17 08:04 97.7 88 18 128/67 (87) 100 07/28/17 07:51 92 Nasal Cannula 6.00 07/28/17 04:00 98.5 92 19 157/66 (96) 99 07/28/17 00:00 97.6 102 19 159/66 (97) 90 07/27/17 21:37 90 Nasal Cannula 6.00 07/27/17 20:00 97.7 95 20 128/73 (91) 91 07/28/17 07/28/17 07/29/17 15:00 23:00 07:00 Intake Total 720 ml Balance 720 ml Intake Oral 720 ml # Voids 3 # Bowel Movements 0 . Laboratory Tests Test 07/27/17 05:28 07/28/17 05:48 White Blood Count 7.6 TH/MM3 7.7 TH/MM3 Red Blood Count 3.08 MIL/MM3 2.86 MIL/MM3 Hemoglobin 9.5 GM/DL 8.8 GM/DL Hematocrit 29.3 % 27.1 % Mean Corpuscular Volume 95.2 FL 94.7 FL Mean Corpuscular Hemoglobin 30.8 PG 30.9 PG Mean Corpuscular Hemoglobin Concent 32.3 % 32.6 % Red Cell Distribution Width 17.4 % 17.3 % Platelet Count 208 TH/MM3 204 TH/MM3 Mean Platelet Volume 7.4 FL 7.5 FL Neutrophils (%) (Auto) 60.8 % 64.5 % Lymphocytes (%) (Auto) 26.5 % 22.4 % Monocytes (%) (Auto) 7.3 % 8.9 % Eosinophils (%) (Auto) 5.1 % 3.9 % Basophils (%) (Auto) 0.3 % 0.3 % Neutrophils # (Auto) 4.6 TH/MM3 5.0 TH/MM3 Lymphocytes # (Auto) 2.0 TH/MM3 1.7 TH/MM3 Monocytes # (Auto) 0.6 TH/MM3 0.7 TH/MM3 Eosinophils # (Auto) 0.4 TH/MM3 0.3 TH/MM3 Basophils # (Auto) 0.0 TH/MM3 0.0 TH/MM3 CBC Comment DIFF FINAL DIFF FINAL Differential Comment Laboratory Tests Test 07/27/17 05:28 07/28/17 05:48 Blood Urea Nitrogen 24 MG/DL 20 MG/DL Creatinine 1.94 MG/DL 1.84 MG/DL Random Glucose 86 MG/DL 110 MG/DL Calcium Level 8.5 MG/DL 8.3 MG/DL Sodium Level 146 MEQ/L 146 MEQ/L Potassium Level 3.8 MEQ/L 3.6 MEQ/L Chloride Level 110 MEQ/L 111 MEQ/L Carbon Dioxide Level 24.5 MEQ/L 24.6 MEQ/L Anion Gap 12 MEQ/L 10 MEQ/L Estimat Glomerular Filtration Rate 25 ML/MIN 26 ML/MIN Imaging Last Impressions Gall Bladder Ultrasound 07/28/17 0000 Signed Impressions: CONCLUSION: Unremarkable sonographic appearance of the right upper quadrant Chest CT 07/27/17 0000 Signed Impressions: CONCLUSION: 1. Examination quality is degraded by respiratory motion artifact. There is ab normal interstitial lung disease bilaterally with features suggestive of idiopa thic pulmonary fibrosis or UIP. 2. There is a new small left pleural effusion. 3. Severe atherosclerotic disease and coronary artery calcification. Chest X-Ray 07/26/17 1015 Signed Impressions: CONCLUSION: 1. New intra-alveolar infiltrate within the right lower lobe. 2. Chronic interstitial changes. Physical Exam CONSTITUTIONAL/GENERAL: This is an adequately nourished patient, in no apparent distress. TUBES/LINES/DRAINS: SKIN: No jaundice, rashes, or lesions. Skin temperature appropriate. Not diaphoretic. SKIN is dry with extensive solar elastosis lesion and excoriations. NO rash CARDIOVASCULAR: Regular rate and rhythm without murmurs, gallops, or rubs. No JVD. Peripheral pulses symmetric. RESPIRATORY/CHEST: Symmetric, unlabored respirations.B/l fine crackles to auscultation. Breath sounds equal bilaterally. GASTROINTESTINAL: Abdomen soft, non-tender, nondistended. No hepato-splenomegaly , or palpable masses. No guarding. Bowel sounds present. MUSCULOSKELETAL: Extremities without clubbing, cyanosis, or edema. NEUROLOGICAL: asleep Assessment & Plan Remarks COPD/IPF, advanced chronic resp insufficiency RLL PNA PSAE PNA recent will dw Dr De Leon sputum clx if feasible cont cefepime anticipate 2 weeks of IV abx Adelia Jaramillo MD Jul 28, 2017 19:37
[2017-07-28] MEDS: CEFEPIME INJ 2,000 MG in SODIUM CHLORIDE 0.9% INJ 100 ML IV SCH (20:55)
[2017-07-28] MEDS: MONTELUKAST SODIUM 10 MG TAB PO SCH (20:56)
[2017-07-28] MEDS: ENOXAPARIN SODIUM 30 MG/0.3 ML SYRINGE SQ SCH (20:56)
[2017-07-28] MEDS: LORazepam 0.5 MG TAB PO PRN (21:11)
[2017-07-29] VITALS (17 sets, daily range): BP systolic 139–189; BP diastolic 67–92; PULSE 82–98; RESP 20–28; TEMP 97.8–98.6; O2SAT 92–100
[2017-07-29] MEDS: RESP: ALBUTEROL 2.5 MG/IPRATROPIUM 0.5 MG NEB (SCH) INH ×7 (00:24→23:42)
[2017-07-29] MEDS: amLODIPine BESYLATE 5 MG TAB PO SCH ×2 (04:52→10:12)
[2017-07-29] MEDS: SODIUM CHLOR 0.9% 1000 ML INJ 1,000 ML IV SCH ×3 (04:52→16:17)
[2017-07-29] MEDS: diphenhydrAMINE HCL 50 MG CAP PO PRN ×2 (05:58→20:43)
[2017-07-29] MEDS: predniSONE 10 MG TAB PO SCH (10:12)
[2017-07-29] MEDS: DOCUSATE SODIUM 50 MG/SENNA 8.6 MG TAB PO SCH ×2 (10:12→20:44)
[2017-07-29] MEDS: ESTRADIOL 1 MG TAB PO SCH (10:12)
[2017-07-29] MEDS: SODIUM CHLORIDE 0.9% FLUSH 10 ML FLUSH IV FLUSH SCH ×2 (10:13→20:43)
--- NOTE | 2017-07-29 11:29 | HHI.PR ---
Subjective Remarks She again had SOB thru the night with son at bedside becoming frustrated that she is no better after antibiotics on and off for several weeks. Objective Vital Signs Date Time Temp Pulse Resp B/P (MAP) Pulse Ox O2 Delivery O2 Flow Rate FiO2 07/29/17 08:04 98.3 82 22 149/92 (111) 97 07/29/17 06:49 95 Nasal Cannula 5.00 07/29/17 06:30 142/78 (99) 07/29/17 04:51 97 Nasal Cannula 5.00 07/29/17 04:00 93 07/29/17 04:00 97.8 95 28 189/84 (119) 92 07/29/17 03:33 93 Nasal Cannula 5.00 07/29/17 02:01 Partial Non-Rebreather 07/29/17 00:25 95 Non-Rebreather 11.00 07/29/17 00:00 94 07/29/17 00:00 98.0 98 22 144/83 (103) 99 07/28/17 22:25 96 Non-Rebreather 15.00 07/28/17 20:00 98.0 94 24 174/74 (107) 95 07/28/17 20:00 92 07/28/17 16:18 95 Nasal Cannula 6.00 07/28/17 16:04 97.7 88 18 168/76 (106) 98 07/28/17 16:00 89 07/28/17 12:04 97.6 92 19 164/89 (114) 95 07/28/17 11:59 93 I/O 07/28/17 07/28/17 07/28/17 07/29/17 07/29/17 07/29/17 07:00 15:00 23:00 07:00 15:00 23:00 Intake Total 1222 ml 720 ml 400 ml Output Total 350 ml 400 ml Balance 872 ml 720 ml 0 ml Intake Oral 222 ml 720 ml 400 ml IV Total 1000 ml Output Urine Total 350 ml 400 ml # Voids 1 3 3 # Bowel Movements 0 0 Result Diagram: 07/28/17 0548 07/28/17 0548 Imaging Last Impressions Gall Bladder Ultrasound 07/28/17 0000 Signed Impressions: CONCLUSION: Unremarkable sonographic appearance of the right upper quadrant Chest CT 07/27/17 0000 Signed Impressions: CONCLUSION: 1. Examination quality is degraded by respiratory motion artifact. There is ab normal interstitial lung disease bilaterally with features suggestive of idiopa thic pulmonary fibrosis or UIP. 2. There is a new small left pleural effusion. 3. Severe atherosclerotic disease and coronary artery calcification. Chest X-Ray 07/26/17 1015 Signed Impressions: CONCLUSION: 1. New intra-alveolar infiltrate within the right lower lobe. 2. Chronic interstitial changes. Objective Remarks GENERAL: Awake and SOB on a nonrebreather SKIN: Warm and dry. HEAD: Normocephalic. EYES: No scleral icterus. No injection or drainage. NECK: Supple, trachea midline. No JVD or lymphadenopathy. CARDIOVASCULAR: Regular rate and rhythm without murmurs, gallops, or rubs. RESPIRATORY: Breath sounds equal bilaterally with rales at the right base. GASTROINTESTINAL: Abdomen soft, non-tender, nondistended. MUSCULOSKELETAL: No cyanosis, or edema. BACK: Nontender without obvious deformity. No CVA tenderness. Medications and IVs Current Medications Medications (Trade) Dose Ordered Sig/Yogi Route Start Time Stop Time Status Last Admin (Estradiol) 0.5 mg DAILY PO 07/27/17 09:00 07/29/17 10:12 (Duoneb Neb) 1 ampule Q4HR NEB INH 07/26/17 20:00 07/29/17 08:32 (Ativan) 0.5 mg Q8HR PRN PO 07/26/17 18:45 07/28/17 21:11 (Provera) 2.5 mg DAILY PO 07/27/17 09:00 07/29/17 10:12 (Singulair) 10 mg HS PO 07/26/17 21:00 07/28/17 20:56 (Deltasone) 10 mg DAILY PO 07/27/17 09:00 07/29/17 10:12 (NS Flush) 2 ml UNSCH PRN IV FLUSH 07/26/17 19:00 (NS Flush) 2 ml BID IV FLUSH 07/26/17 21:00 07/29/17 10:13 (Narcan Inj) 0.4 mg UNSCH PRN IV PUSH 07/26/17 19:00 (Aria-Colace) 1 tab BID PO 07/26/17 21:00 07/29/17 10:12 (Milk Of Magnesia Liq) 30 ml Q12H PRN PO 07/26/17 19:00 (Senokot) 17.2 mg Q12H PRN PO 07/26/17 19:00 (Dulcolax Supp) 10 mg DAILY PRN RECTAL 07/26/17 19:00 (Lactulose Liq) 30 ml DAILY PRN PO 07/26/17 19:00 (Tylenol) 500 mg HS PRN PO 07/26/17 19:30 (Benadryl) 25 mg HS PRN PO 07/26/17 19:30 07/27/17 09:07 Sodium Chloride 1,000 ml @ 100 mls/hr Q10H IV 07/26/17 22:00 07/29/17 04:52 (Benadryl) 50 mg Q8H PRN PO 07/27/17 10:15 07/29/17 05:58 (Pill Splitter) 1 ea UNSCH PRN OTHER 07/27/17 14:15 Cefepime HCl 2000 mg/Sodium Chloride 100 ml @ 200 mls/hr Q24H IV 07/27/17 20:00 07/28/17 20:55 (Lovenox Inj) 30 mg Q24H SQ 07/27/17 20:00 07/28/17 20:56 (Norvasc) 5 mg DAILY PO 07/29/17 09:00 07/29/17 10:12 Assessment and Plan Problem List: (1) Acute respiratory failure with hypoxia ICD Codes: J96.01 - Acute respiratory failure with hypoxia Status: Acute Plan: Pulm and ID following and adjusting antibiotics (2) COPD exacerbation ICD Codes: J44.1 - Chronic obstructive pulmonary disease with (acute) exacerbation Status: Acute Plan: SOB and requiring nonrebreather (3) RLL pneumonia ICD Codes: J18.1 - Lobar pneumonia, unspecified organism Status: Acute Plan: Cont antibiotics per ID and Pulm (4) LOVE (acute kidney injury) ICD Codes: N17.9 - Acute kidney failure, unspecified Status: Acute Plan: Will cont to monitor and avoid nephrotoxic agents Discussed Condition With Patient son and copyright expert Planning SNF Problem Qualifiers (1) RLL pneumonia: Qualified Codes: J18.1 - Lobar pneumonia, unspecified organism Bob Yepez Jul 29, 2017 11:29
--- NOTE | 2017-07-29 13:03 | HHI.PR ---
Subjective Remarks Alert no distress on o2 via simple mask Objective Vital Signs Date Time Temp Pulse Resp B/P (MAP) Pulse Ox O2 Delivery O2 Flow Rate FiO2 07/29/17 08:04 98.3 82 22 149/92 (111) 97 07/29/17 08:00 93 07/29/17 06:49 95 Nasal Cannula 5.00 07/29/17 06:30 142/78 (99) 07/29/17 04:51 97 Nasal Cannula 5.00 07/29/17 04:00 93 07/29/17 04:00 97.8 95 28 189/84 (119) 92 07/29/17 03:33 93 Nasal Cannula 5.00 07/29/17 02:01 Partial Non-Rebreather 07/29/17 00:25 95 Non-Rebreather 11.00 07/29/17 00:00 94 07/29/17 00:00 98.0 98 22 144/83 (103) 99 07/28/17 22:25 96 Non-Rebreather 15.00 07/28/17 20:00 98.0 94 24 174/74 (107) 95 07/28/17 20:00 92 07/28/17 16:18 95 Nasal Cannula 6.00 07/28/17 16:04 97.7 88 18 168/76 (106) 98 07/28/17 16:00 89 I/O 07/28/17 07/28/17 07/28/17 07/29/17 07/29/17 07/29/17 07:00 15:00 23:00 07:00 15:00 23:00 Intake Total 1222 ml 720 ml 400 ml Output Total 350 ml 400 ml Balance 872 ml 720 ml 0 ml Intake Oral 222 ml 720 ml 400 ml IV Total 1000 ml Output Urine Total 350 ml 400 ml # Voids 1 3 3 # Bowel Movements 0 0 Result Diagram: 07/28/17 0548 07/28/17 0548 Objective Remarks GENERAL: SKIN: Warm and dry. HEAD: Atraumatic. Normocephalic. EYES: Pupils equal and round. No scleral icterus. No injection or drainage. ENT: No nasal bleeding or discharge. Mucous membranes pink and moist. NECK: Trachea midline. No JVD. CARDIOVASCULAR: Regular rate and rhythm. RESPIRATORY: No accessory muscle use. few rhonchi auscultation. Breath sounds equal bilaterally. GASTROINTESTINAL: Abdomen soft, non-tender, nondistended. Hepatic and splenic margins not palpable. MUSCULOSKELETAL: Extremities without clubbing, cyanosis, or edema. No obvious deformities. NEUROLOGICAL: Awake and alert. No obvious cranial nerve deficits. Motor grossly within normal limits. Five out of 5 muscle strength in the arms and legs. Normal speech. PSYCHIATRIC: Appropriate mood and affect; insight and judgment normal. Assessment and Plan Assessment and Plan imp respiratory failure copd pulm fibrosis plan o2 as needed bronchodilator therapy antibx per ID Abel Roman MD Jul 29, 2017 13:03
--- NOTE | 2017-07-29 14:15 | RADRPT ---
EXAM DATE: 07/29/2017 2:06 PM EDT AGE/SEX: 82 years / Female INDICATIONS: SOB CLINICAL DATA: This is the patient's subsequent encounter. Patient reports that signs and symptoms h ave been present for 3 days and indicates a pain score of 0/10. MEDICAL/SURGICAL HISTORY: None. None. COMPARISON: [facility] – [place], CHEST SINGLE AP, 07/26/2017. . FINDINGS: There are persistent mixed interstitial and alveolar infiltrates in the lateral right midlung, upper right lung and lower left lung. The distribution and severity of these infiltrates is similar to prio r examination on 07/26/2017. The heart is stable in size. Both hemidiaphragms well delineated. Stable r ight thoracolumbar scoliosis. CONCLUSION: Stable bilateral lung infiltrates, predominantly interstitial. Electronically signed by: Fredi Sigala MD 07/29/2017 2:14 PM EDT
--- NOTE | 2017-07-29 20:39 | HHI.IDPN ---
Subjective Subjective Remarks Pt transferred to ICU for resp distress On BIPAP Not expectorating Antibiotics cefepime Allergies: Coded Allergies: codeine (Unverified Allergy, Intermediate, HIVES, 07/26/17) phenobarbital (Unverified Allergy, Unknown, 07/26/17) Objective . Vital Signs Date Time Temp Pulse Resp B/P (MAP) Pulse Ox O2 Delivery O2 Flow Rate FiO2 07/29/17 18:00 91 07/29/17 16:00 95 07/29/17 16:00 98.6 96 20 139/67 (91) 100 07/29/17 15:00 100 Bi-Pap 100 07/29/17 15:00 96 07/29/17 14:40 100 55 07/29/17 12:04 98.4 98 20 149/67 (94) 97 07/29/17 12:00 98 07/29/17 08:04 98.3 82 22 149/92 (111) 97 07/29/17 08:00 93 07/29/17 06:49 95 Nasal Cannula 5.00 07/29/17 06:30 142/78 (99) 07/29/17 04:51 97 Nasal Cannula 5.00 07/29/17 04:00 93 07/29/17 04:00 97.8 95 28 189/84 (119) 92 07/29/17 03:33 93 Nasal Cannula 5.00 07/29/17 02:01 Partial Non-Rebreather 07/29/17 00:25 95 Non-Rebreather 11.00 07/29/17 00:00 94 07/29/17 00:00 98.0 98 22 144/83 (103) 99 07/28/17 22:25 96 Non-Rebreather 15.00 07/29/17 07/29/17 07/30/17 15:00 23:00 07:00 Intake Total 0 ml Output Total 0 ml Balance 0 ml Intake Oral 0 ml Output Urine Total 0 ml # Bowel Movements 0 . Laboratory Tests Test 07/28/17 05:48 White Blood Count 7.7 TH/MM3 Red Blood Count 2.86 MIL/MM3 Hemoglobin 8.8 GM/DL Hematocrit 27.1 % Mean Corpuscular Volume 94.7 FL Mean Corpuscular Hemoglobin 30.9 PG Mean Corpuscular Hemoglobin Concent 32.6 % Red Cell Distribution Width 17.3 % Platelet Count 204 TH/MM3 Mean Platelet Volume 7.5 FL Neutrophils (%) (Auto) 64.5 % Lymphocytes (%) (Auto) 22.4 % Monocytes (%) (Auto) 8.9 % Eosinophils (%) (Auto) 3.9 % Basophils (%) (Auto) 0.3 % Neutrophils # (Auto) 5.0 TH/MM3 Lymphocytes # (Auto) 1.7 TH/MM3 Monocytes # (Auto) 0.7 TH/MM3 Eosinophils # (Auto) 0.3 TH/MM3 Basophils # (Auto) 0.0 TH/MM3 CBC Comment DIFF FINAL Differential Comment Laboratory Tests Test 07/28/17 05:48 Blood Urea Nitrogen 20 MG/DL Creatinine 1.84 MG/DL Random Glucose 110 MG/DL Calcium Level 8.3 MG/DL Sodium Level 146 MEQ/L Potassium Level 3.6 MEQ/L Chloride Level 111 MEQ/L Carbon Dioxide Level 24.6 MEQ/L Anion Gap 10 MEQ/L Estimat Glomerular Filtration Rate 26 ML/MIN Imaging Last Impressions Chest X-Ray 07/29/17 0000 Signed Impressions: CONCLUSION: Stable bilateral lung infiltrates, predominantly interstitial. Gall Bladder Ultrasound 07/28/17 0000 Signed Impressions: CONCLUSION: Unremarkable sonographic appearance of the right upper quadrant Chest CT 07/27/17 0000 Signed Impressions: CONCLUSION: 1. Examination quality is degraded by respiratory motion artifact. There is ab normal interstitial lung disease bilaterally with features suggestive of idiopa thic pulmonary fibrosis or UIP. 2. There is a new small left pleural effusion. 3. Severe atherosclerotic disease and coronary artery calcification. Physical Exam CONSTITUTIONAL/GENERAL: This is an adequately nourished patient, in no apparent distress. TUBES/LINES/DRAINS: SKIN: No jaundice, rashes, or lesions. Skin temperature appropriate. Not diaphoretic. SKIN is dry with extensive solar elastosis lesion and excoriations. NO rash CARDIOVASCULAR: Regular rate and rhythm without murmurs, gallops, or rubs. No JVD. Peripheral pulses symmetric. RESPIRATORY/CHEST: Symmetric, unlabored respirations.B/l fine crackles to auscultation. Breath sounds equal bilaterally. GASTROINTESTINAL: Abdomen soft, non-tender, nondistended. No hepato-splenomegaly , or palpable masses. No guarding. Bowel sounds present. MUSCULOSKELETAL: Extremities without clubbing, cyanosis, or edema. NEUROLOGICAL: lethargic to obtunded Assessment & Plan Remarks COPD/IPF, advanced chronic resp insufficiency RLL PNA PSAE PNA recent sputum clx if feasible will change cefepime to meropenem, zyvox CXR dw Adelia Allen MD Jul 29, 2017 20:39
[2017-07-29] MEDS: ENOXAPARIN SODIUM 30 MG/0.3 ML SYRINGE SQ SCH (20:43)
[2017-07-29] MEDS: MONTELUKAST SODIUM 10 MG TAB PO SCH (20:43)
[2017-07-29] MEDS ORDERED: PHARMACY INFORMATION XX PRN (20:45)
[2017-07-29] MEDS ORDERED: ASP: ID consult, note reason in consult order PRN (20:45)
[2017-07-29] MEDS: diphenhydrAMINE HCL 25 MG CAP PO PRN (21:54)
[2017-07-29] MEDS: LORazepam 0.5 MG TAB PO PRN (21:54)
[2017-07-29] MEDS: LINEZOLID 600 MG PREMIX 300 ML IV SCH (21:55)
[2017-07-29] MEDS: MEROPENEM INJ 1,000 MG in SODIUM CHLORIDE 0.9% INJ 100 ML IV SCH (22:21)
[2017-07-30] VITALS (17 sets, daily range): BP systolic 125–157; BP diastolic 59–73; PULSE 88–95; RESP 24–39; TEMP 97.8–98.5; O2SAT 91–99
[2017-07-30] MEDS: diphenhydrAMINE HCL 50 MG CAP PO PRN ×3 (03:51→18:30)
[2017-07-30] MEDS: SODIUM CHLOR 0.9% 1000 ML INJ 1,000 ML IV SCH ×2 (03:51→20:55)
[2017-07-30] MEDS: RESP: ALBUTEROL 2.5 MG/IPRATROPIUM 0.5 MG NEB (SCH) INH ×2 (04:24→08:38)
--- NOTE | 2017-07-30 05:29 | RADRPT ---
EXAM DATE: 07/30/2017 5:24 AM EDT AGE/SEX: 82 years / Female INDICATIONS: Shortness of breath, possible pulmonary disease. CLINICAL DATA: This is the patient's subsequent encounter. Patient reports that signs and symptoms h ave been present for 4 - 6 days and indicates a pain score of 0/10. MEDICAL/SURGICAL HISTORY: Chronic obstructive pulmonary disease. None. COMPARISON: [facility] – [place], 07/29/2017. . FINDINGS: Single view the chest demonstrates airspace and interstitial lung disease right greater than left. Sl ight blunting of both costophrenic angles. No visible pneumothorax. Aorta mildly tortuous. Leftward t horacolumbar scoliosis. CONCLUSION: Mild interstitial prominence right greater than left. Electronically signed by: Luis Enrique Patel MD 07/30/2017 5:28 AM EDT
[2017-07-30] MEDS ORDERED: methylPREDNISolone SOD SUCC 125 MG/2 ML VIAL IV PUSH ONE (09:45)
[2017-07-30] MEDS ORDERED: RESP: ALBUTEROL 2.5 MG/IPRATROPIUM 0.5 MG NEB (PRN) NEB (09:45)
[2017-07-30] MEDS ORDERED: PANTOPRAZOLE SOD 40 MG DELAYED RELEASE TAB PO ONE (09:45)
[2017-07-30 10:51] LABS: BASOPHIL # 0.1 TH/MM3 (0-0.2); BASOPHIL % 0.7 % (0.0-2.0); EOSINOPHIL # 0.5 TH/MM3 (0-0.4); EOSINOPHIL % 6.9 % (0.0-4.0); HEMOGLOBIN 9.6 GM/DL (11.6-15.3); LYMPH % 18.2 % (9.0-44.0); LYMPHOCYTE # 1.4 TH/MM3 (1.0-4.8); MEAN CELL VOLUME 92.5 FL (80.0-100.0); MEAN CORPUSCULAR HEMOGLOBIN 30.5 PG (27.0-34.0); MEAN PLATELET VOLUME 6.9 FL (7.0-11.0); MONO % 7.5 % (0.0-8.0); MONOCYTE # 0.6 TH/MM3 (0-0.9); NEUT % 66.7 % (16.0-70.0); PLATELET COUNT 239 TH/MM3 (150-450); RED BLOOD COUNT 3.14 MIL/MM3 (4.00-5.30); RED CELL DISTRIBUTION WIDTH 17.1 % (11.6-17.2); WHITE BLOOD COUNT 7.5 TH/MM3 (4.0-11.0)
[2017-07-30] MEDS: LINEZOLID 600 MG PREMIX 300 ML IV SCH ×2 (10:51→20:56)
[2017-07-30] MEDS: SODIUM CHLORIDE 0.9% FLUSH 10 ML FLUSH IV FLUSH SCH ×2 (10:51→20:56)
[2017-07-30] MEDS: ESTRADIOL 1 MG TAB PO SCH (10:52)
[2017-07-30] MEDS: DOCUSATE SODIUM 50 MG/SENNA 8.6 MG TAB PO SCH ×2 (10:52→20:56)
[2017-07-30] MEDS: amLODIPine BESYLATE 5 MG TAB PO SCH (10:52)
--- NOTE | 2017-07-30 10:54 | HHI.PR ---
Subjective Remarks 82 yo female , pt of Dr De Leon with IPF/COPD/ home O2 12/09 recently diagnosed with PSAE PNA, improved on IV abx which were switched to oral abx presented with worsening resp smx;' SOB, increasing hypoxia and dry cough She is unable to expectorate she is on 6 L of O2 and her sats are 92 % CXR from yday showed new intra-alveolar infiltrate within the right lower lobe along with chronic interstitial changes she also co skin itching 07-30 patient has been transferred to our service at request of family. Have started IV steroids. Have started Mucinex. Have started Symbicort. Have started incentive spirometry Patient is a limited DNR no intubation but everything else is okay We will get labs will get an ABG Discussed with RN and patient and son Patient currently is on BiPAP Has long-standing history of COPD and recently diagnosed idiopathic pulmonary fibrosis Has been in and out of to hospitals at [facility] now here within the past month or so We will tweak her medications We will ask palliative care to evaluate and treat Continue with physical therapy and Occupational Therapy long discussion with son And patient and RNs primary care physician is Dr. Mary Croft Objective Vitals Vital Signs Date Time Temp Pulse Resp B/P (MAP) Pulse Ox O2 Delivery O2 Flow Rate FiO2 07/30/17 10:00 89 07/30/17 08:40 99 40 07/30/17 08:00 93 07/30/17 07:00 99 Bi-Pap 40 07/30/17 06:00 88 07/30/17 04:26 98 40 07/30/17 04:00 97.8 91 27 157/71 (99) 95 07/30/17 04:00 91 07/30/17 02:00 93 07/30/17 00:00 90 07/30/17 00:00 98.5 90 28 134/66 (88) 97 07/29/17 23:40 94 40 07/29/17 22:00 93 07/29/17 20:38 96 40 07/29/17 20:00 98.1 91 24 155/68 (97) 99 07/29/17 20:00 91 07/29/17 19:00 99 Bi-Pap 55 07/29/17 18:00 91 07/29/17 16:00 95 07/29/17 16:00 98.6 96 20 139/67 (91) 100 07/29/17 15:00 100 Bi-Pap 100 07/29/17 15:00 96 07/29/17 14:40 100 55 07/29/17 12:04 98.4 98 20 149/67 (94) 97 07/29/17 12:00 98 I/O 07/29/17 07/29/17 07/29/17 07/30/17 07/30/17 07/30/17 06:59 14:59 22:59 06:59 14:59 22:59 Intake Total 400 ml 0 ml 1659 ml Output Total 400 ml 0 ml 600 ml Balance 0 ml 0 ml 1059 ml Intake Oral 400 ml 0 ml IV Total 1659 ml Output Urine Total 400 ml 0 ml 600 ml # Voids 3 # Bowel Movements 0 0 Result Diagram: 07/28/17 0548 07/28/17 0548 Other Results Laboratory Tests Test 07/28/17 05:48 07/29/17 13:34 07/30/17 10:41 White Blood Count 7.7 TH/MM3 Red Blood Count 2.86 MIL/MM3 Hemoglobin 8.8 GM/DL Hematocrit 27.1 % Mean Corpuscular Volume 94.7 FL Mean Corpuscular Hemoglobin 30.9 PG Mean Corpuscular Hemoglobin Concent 32.6 % Red Cell Distribution Width 17.3 % Platelet Count 204 TH/MM3 Mean Platelet Volume 7.5 FL Neutrophils (%) (Auto) 64.5 % Lymphocytes (%) (Auto) 22.4 % Monocytes (%) (Auto) 8.9 % Eosinophils (%) (Auto) 3.9 % Basophils (%) (Auto) 0.3 % Neutrophils # (Auto) 5.0 TH/MM3 Lymphocytes # (Auto) 1.7 TH/MM3 Monocytes # (Auto) 0.7 TH/MM3 Eosinophils # (Auto) 0.3 TH/MM3 Basophils # (Auto) 0.0 TH/MM3 CBC Comment DIFF FINAL Differential Comment Blood Urea Nitrogen 20 MG/DL Creatinine 1.84 MG/DL Random Glucose 110 MG/DL Calcium Level 8.3 MG/DL Sodium Level 146 MEQ/L Potassium Level 3.6 MEQ/L Chloride Level 111 MEQ/L Carbon Dioxide Level 24.6 MEQ/L Anion Gap 10 MEQ/L Estimat Glomerular Filtration Rate 26 ML/MIN Blood Gas Puncture Site RT RADIAL Blood Gas Patient Temperature 98.6 Blood Gas HCO3 24 mmol/L Blood Gas Base Excess 0.1 mmol/L Blood Gas Oxygen Saturation 87 % Arterial Blood pH 7.41 Arterial Blood Partial Pressure CO2 39 mmHg Arterial Blood Partial Pressure O2 59 mmHg Arterial Blood Oxygen Content 11.7 Vol % Arterial Blood Carboxyhemoglobin 1.4 % Arterial Blood Methemoglobin 1.2 % Blood Gas Hemoglobin 9.5 G/DL Oxygen Delivery Device SIMPLE MASK Blood Gas Liter Flow 6 L/M Blood Gas Inspired Oxygen 40 % Imaging Last Impressions Chest X-Ray 07/30/17 0600 Signed Impressions: CONCLUSION: Mild interstitial prominence right greater than left. Gall Bladder Ultrasound 07/28/17 0000 Signed Impressions: CONCLUSION: Unremarkable sonographic appearance of the right upper quadrant Chest CT 07/27/17 0000 Signed Impressions: CONCLUSION: 1. Examination quality is degraded by respiratory motion artifact. There is ab normal interstitial lung disease bilaterally with features suggestive of idiopa thic pulmonary fibrosis or UIP. 2. There is a new small left pleural effusion. 3. Severe atherosclerotic disease and coronary artery calcification. Objective Remarks GENERAL: Awake and alert in moderate distress remains on BiPAP SKIN: Warm and dry. HEAD: Atraumatic. Normocephalic. EYES: Pupils equal and round. No scleral icterus. No injection or drainage. ENT: No nasal bleeding or discharge. Mucous membranes pink and moist. NECK: Trachea midline. No JVD. Supple CARDIOVASCULAR: Regular rate and rhythm. S1-S2 no S3 or S4 RESPIRATORY: Some accessory muscle use. Coarse breath sounds bilaterally breath sounds equal bilaterally. Currently on BiPAP GASTROINTESTINAL: Abdomen soft, non-tender, nondistended. Hepatic and splenic margins not palpable. MUSCULOSKELETAL: Extremities without clubbing, cyanosis, or edema. No obvious deformities. NEUROLOGICAL: Awake and alert. No obvious cranial nerve deficits. Motor grossly within normal limits. 4 out of 5 muscle strength in the arms and legs. Normal speech. PSYCHIATRIC: Appropriate mood and affect; insight and judgment normal. Procedures BiPAP Medications and IVs Current Medications Sodium Chloride (NS Flush) 2 ml UNSCH PRN IVF FLUSH AFTER USING IV ACCESS; Start 07/26/17 at 10:15; Stop 07/27/17 at 11:17; Status DC Bisacodyl (Dulcolax Supp) 10 mg DAILY PRN RECTAL CONSTIPATION; Start 07/26/17 at 18:45; Stop 07/26/17 at 19:08; Status DC Ciprofloxacin (Cipro) 750 mg BID PO Last administered on 07/27/17at 09:08; Start 07/26/17 at 21:00; Stop 07/27/17 at 14:01; Status DC Escitalopram Oxalate (Lexapro) 20 mg DAILY PO Last administered on 07/27/17at 09: 08; Start 07/27/17 at 09:00; Stop 07/27/17 at 15:53; Status DC Estradiol (Estradiol) 0.5 mg DAILY PO Last administered on 07/29/17at 10:12; Start 07/27/17 at 09:00 Albuterol/ Ipratropium (Duoneb Neb) 1 ampule Q4HR NEB INH Last administered on 07/30/17at 08:38; Start 07/26/17 at 20:00; Stop 07/30/17 at 09:39; Status DC Lorazepam (Ativan) 0.5 mg Q8HR PRN PO ANXIETY Last administered on 07/29/17at 21: 54; Start 07/26/17 at 18:45 Medroxyprogesterone Acetate (Provera) 2.5 mg DAILY PO Last administered on at 10:12; Start 07/27/17 at 09:00 Mirtazapine (Remeron) 30 mg HS PO Last administered on 07/26/17at 23:36; Start at 21:00; Stop 07/27/17 at 15:53; Status DC Montelukast Sodium (Singulair) 10 mg HS PO Last administered on 07/29/17at 20:43 ; Start 07/26/17 at 21:00 Prednisone (Deltasone) 10 mg DAILY PO Last administered on 07/29/17at 10:12; Start 07/27/17 at 09:00; Stop 07/30/17 at 09:39; Status DC Non-Formulary Medication 500 mg HS PRN PO INSOMNIA; Start 07/26/17 at 18:45; Stop 07/26/17 at 19:16; Status DC Tolterodine Tartrate (Detrol La) 2 mg DAILY PO Last administered on 07/27/17at 09 :07; Start 07/27/17 at 09:00; Stop 07/27/17 at 15:53; Status DC Pravastatin Sodium (Pravachol) 80 mg HS PO Last administered on 07/26/17at 23:36 ; Start 07/26/17 at 21:00; Stop 07/27/17 at 15:53; Status DC Sodium Chloride (NS Flush) 2 ml UNSCH PRN IV FLUSH FLUSH AFTER USING IV ACCESS ; Start 07/26/17 at 19:00 Sodium Chloride (NS Flush) 2 ml BID IV FLUSH Last administered on 07/29/17at 20: 43; Start 07/26/17 at 21:00 Naloxone HCl (Narcan Inj) 0.4 mg UNSCH PRN IV PUSH SEE LABEL COMMENTS; Start at 19:00 Senna/Docusate Sodium (Aria-Colace) 1 tab BID PO Last administered on 07/29/17at 10:12; Start 07/26/17 at 21:00 Magnesium Hydroxide (Milk Of Magnesia Liq) 30 ml Q12H PRN PO Mild constipation ; Start 07/26/17 at 19:00 Sennosides (Senokot) 17.2 mg Q12H PRN PO Moderate constipation; Start 07/26/17 at 19:00 Bisacodyl (Dulcolax Supp) 10 mg DAILY PRN RECTAL SEVERE CONSITIPATION; Start at 19:00 Lactulose (Lactulose Liq) 30 ml DAILY PRN PO SEVERE CONSITIPATION; Start at 19:00 Acetaminophen (Tylenol) 500 mg HS PRN PO INSOMNIA; Start 07/26/17 at 19:30 Diphenhydramine HCl (Benadryl) 25 mg HS PRN PO INSOMNIA Last administered on 07/29/17at 21:54; Start 07/26/17 at 19:30 Sodium Chloride 1,000 ml @ 100 mls/hr Q10H IV Last administered on 07/30/17at 03:51; Start 07/26/17 at 22:00 Diphenhydramine HCl (Benadryl) 50 mg Q8H PRN PO ITCHING Last administered on 12/07at 03:51; Start 07/27/17 at 10:15 Ciprofloxacin (Cipro) 375 mg BID PO ; Start 07/27/17 at 21:00; Stop 07/27/17 at 21 :00; Status DC Miscellaneous (Pill Splitter) 1 ea UNSCH PRN OTHER SEE LABEL COMMENTS; Start at 14:15 Cefepime HCl 2000 mg/Sodium Chloride 100 ml @ 200 mls/hr Q24H IV Last administered on 07/28/17at 20:55; Start 07/27/17 at 20:00; Stop 07/29/17 at 20:43; Status DC Enoxaparin Sodium (Lovenox Inj) 30 mg Q24H SQ Last administered on 07/29/17at 20: 43; Start 07/27/17 at 20:00 Amlodipine Besylate (Norvasc) 5 mg DAILY PO Last administered on 07/29/17at 10:12 ; Start 07/29/17 at 09:00 Miscellaneous Medication (ASP Crit: Infectious disease consult) 1 UNSCH X1 PRN .XX PHARMACY DOCUMENTATION; Start 07/29/17 at 20:45; Stop 07/30/17 at 20:44 Miscellaneous Medication ([facility] [place] Pharmacy Information) 1 UNSCH X1 PRN XX PHARMACY DOCUMENTATION; Start 07/29/17 at 20:45; Stop 07/30/17 at 20:44 Meropenem 1000 mg/ Sodium Chloride 100 ml @ 200 mls/hr Q12H IV Last administered on 07/29/17at 22:21; Start 07/29/17 at 22:00 Linezolid 300 ml @ 300 mls/hr Q12H IV Last administered on 07/29/17at 21:55; Start 07/29/17 at 21:00 Guaifenesin (Mucinex Er) 600 mg BID PO ; Start 07/30/17 at 09:45 Methylprednisolone Sodium Succinate (SoluMEDROL INJ) 125 mg ONCE ONCE IV PUSH ; Start 07/30/17 at 09:45; Stop 07/30/17 at 09:46; Status DC Methylprednisolone Sodium Succinate (SoluMEDROL INJ) 60 mg Q6H IV PUSH ; Start 07/30/17 at 15:00 Budesonide/ Formoterol Fumarate (Symbicort 160-4.5 Mcg Inh) 2 puff Q12HR INH ; Start 07/30/17 at 09:45 Albuterol/ Ipratropium (Duoneb Neb) 1 ampule Q2HR NEB PRN NEB sob; Start at 09:45 Albuterol/ Ipratropium (Duoneb Neb) 1 ampule Q6HR NEB NEB ; Start 07/30/17 at 10:00 Pantoprazole Sodium (Protonix) 40 mg ONCE ONCE PO ; Start 07/30/17 at 09:45; Stop 07/30/17 at 09:46; Status DC Pantoprazole Sodium (Protonix) 40 mg DAILY PO ; Start 07/31/17 at 09:00 A/P Problem List: (1) IPF (idiopathic pulmonary fibrosis) ICD Code: J84.112 - Idiopathic pulmonary fibrosis (2) HLD (hyperlipidemia) ICD Code: E78.5 - Hyperlipidemia, unspecified (3) Acute respiratory failure with hypoxia ICD Code: J96.01 - Acute respiratory failure with hypoxia Status: Acute (4) COPD exacerbation ICD Code: J44.1 - Chronic obstructive pulmonary disease with (acute) exacerbation Status: Acute Assessment and Plan COPD/IPF, advanced chronic resp insufficiency RLL PNA PSAE PNA recent started on antibiotics per infectious disease Continue on Mucinex twice daily Continue on Solu-Medrol IV hold oral prednisone start Symbicort Incentive spirometry duo nebs as needed and schedule We will check an ABG Hyperlipidemia continue on home medications Hypertension continue on home medications Depression anxiety resume home medication Renal insufficiency/dehydration worsening check labs Diabetes probably secondary to steroids Accu-Cheks before meals and at bedtime with sliding scale Debility consult physical therapy and Occupational Therapy GI prophylaxis with Protonix DVT prophylaxis with Lovenox Discussed with RN and patient and family Discharge Planning Limited DNR Consult palliative care Jose Field DO Jul 30, 2017 10:54
[2017-07-30 11:26] LABS: ALBUMIN 2.4 GM/DL (3.4-5.0); ALKALINE PHOSPHATASE 117 U/L (45-117); ALT (GPT) 26 U/L (10-53); AST (GOT) 20 U/L (15-37); BICARBONATE 27.9 MEQ/L (21.0-32.0); BLOOD UREA NITROGEN 12 MG/DL (7-18); CALCIUM 7.7 MG/DL (8.5-10.1); CHLORIDE 105 MEQ/L (98-107); CREATININE 1.27 MG/DL (0.50-1.00); GLOMERULAR FILTRATION RATE 40 ML/MIN (>89); GLUCOSE,RANDOM 74 MG/DL (74-106); MAGNESIUM 1.8 MG/DL (1.5-2.5); PHOSPHORUS 2.6 MG/DL (2.5-4.9); SODIUM (NA) 143 MEQ/L (136-145); TOTAL BILIRUBIN ADULT 0.4 MG/DL (0.2-1.0); TOTAL PROTEIN 6.6 GM/DL (6.4-8.2)
[2017-07-30] MEDS ORDERED: POTASSIUM CHLORIDE 25 MEQ EFFERVESCENT TAB PO PRN (12:15)
[2017-07-30] MEDS ORDERED: MAGNESIUM OXIDE 400 MG TAB PO PRN (12:15)
[2017-07-30] MEDS ORDERED: POTASSIUM PHOSPHATE INJ 30 MMOL in SODIUM CHLOR 0.9% 250 ML INJ 250 ML IV PRN (12:15)
[2017-07-30] MEDS ORDERED: SODIUM PHOSPHATE INJ 30 MMOL in SODIUM CHLOR 0.9% 250 ML INJ 240 ML IV PRN (12:15)
[2017-07-30] MEDS ORDERED: MAGNESIUM SULFATE INJ 4 GM in SODIUM CHLORIDE 0.9% INJ 92 ML IV PRN (12:15)
[2017-07-30] MEDS ORDERED: MAGNESIUM SULFATE INJ 2 GM in SODIUM CHLORIDE 0.9% INJ 96 ML IV PRN (12:15)
[2017-07-30] MEDS ORDERED: POTASSIUM PHOSPHATE MONOBASIC 500 MG TAB PO/TUBE PRN (12:15)
[2017-07-30] MEDS ORDERED: POTASSIUM CHLOR 40 MEQ PREMIX 100 ML IV PRN ×2 (12:15)
[2017-07-30] MEDS ORDERED: POTASSIUM PHOSPHATE MONOBASIC 500 MG TAB PO PRN (12:15)
[2017-07-30] MEDS: BUDESONIDE-FORMOTEROL 160/4.5 MCG INHALER INH SCH ×2 (12:44→20:56)
[2017-07-30] MEDS: guaiFENesin E.R. 600 MG TAB PO SCH ×2 (12:45→20:56)
[2017-07-30] MEDS: POTASSIUM CHLOR 20 MEQ PREMIX 100 ML IV PRN ×3 (14:25→20:54)
[2017-07-30] MEDS: methylPREDNISolone SOD SUCC 125 MG/2 ML VIAL IV PUSH SCH ×2 (14:26→20:55)
[2017-07-30] MEDS: RESP: ALBUTEROL 2.5 MG/IPRATROPIUM 0.5 MG NEB (SCH) NEB ×2 (14:56→19:59)
--- NOTE | 2017-07-30 16:46 | HHI.PR ---
Subjective Remarks Alert no distress on o2 via simple mask Objective Vital Signs Date Time Temp Pulse Resp B/P (MAP) Pulse Ox O2 Delivery O2 Flow Rate FiO2 07/30/17 14:57 97 40 07/30/17 14:00 91 07/30/17 12:00 91 07/30/17 12:00 97.9 91 24 155/67 (96) 97 07/30/17 10:00 89 07/30/17 08:40 99 40 07/30/17 08:00 93 07/30/17 08:00 98.0 93 32 157/73 (101) 93 07/30/17 07:00 99 Bi-Pap 40 07/30/17 06:00 88 07/30/17 04:26 98 40 07/30/17 04:00 97.8 91 27 157/71 (99) 95 07/30/17 04:00 91 07/30/17 02:00 93 07/30/17 00:00 90 07/30/17 00:00 98.5 90 28 134/66 (88) 97 07/29/17 23:40 94 40 07/29/17 22:00 93 07/29/17 20:38 96 40 07/29/17 20:00 98.1 91 24 155/68 (97) 99 07/29/17 20:00 91 07/29/17 19:00 99 Bi-Pap 55 07/29/17 18:00 91 I/O 07/29/17 07/29/17 07/29/17 07/30/17 07/30/17 07/30/17 07:00 15:00 23:00 07:00 15:00 23:00 Intake Total 400 ml 0 ml 1659 ml 300 ml Output Total 400 ml 0 ml 600 ml Balance 0 ml 0 ml 1059 ml 300 ml Intake Oral 400 ml 0 ml IV Total 1659 ml 300 ml Output Urine Total 400 ml 0 ml 600 ml # Voids 3 # Bowel Movements 0 0 Result Diagram: 07/30/17 1041 07/30/17 1041 Objective Remarks GENERAL: SKIN: Warm and dry. HEAD: Atraumatic. Normocephalic. EYES: Pupils equal and round. No scleral icterus. No injection or drainage. ENT: No nasal bleeding or discharge. Mucous membranes pink and moist. NECK: Trachea midline. No JVD. CARDIOVASCULAR: Regular rate and rhythm. RESPIRATORY: No accessory muscle use. few rhonchi auscultation. Breath sounds equal bilaterally. GASTROINTESTINAL: Abdomen soft, non-tender, nondistended. Hepatic and splenic margins not palpable. MUSCULOSKELETAL: Extremities without clubbing, cyanosis, or edema. No obvious deformities. NEUROLOGICAL: Awake and alert. No obvious cranial nerve deficits. Motor grossly within normal limits. Five out of 5 muscle strength in the arms and legs. Normal speech. PSYCHIATRIC: Appropriate mood and affect; insight and judgment normal. Assessment and Plan Assessment and Plan imp NOW IN [facility] [place] DNI respiratory failure copd pulm fibrosis plan o2 as needed/BIPAP bronchodilator therapy antibx per ID Abel Roman MD Jul 30, 2017 16:46
[2017-07-30] MEDS: MEROPENEM INJ 1,000 MG in SODIUM CHLORIDE 0.9% INJ 100 ML IV SCH ×2 (17:08→20:57)
--- NOTE | 2017-07-30 19:11 | HHI.IDPN ---
Subjective Subjective Remarks remains on BIPAP Not expectorating blood clx drawn today p abx started Antibiotics meropenem zyvox Allergies: Coded Allergies: codeine (Unverified Allergy, Intermediate, HIVES, 07/26/17) phenobarbital (Unverified Allergy, Unknown, 07/26/17) Objective . Vital Signs Date Time Temp Pulse Resp B/P (MAP) Pulse Ox O2 Delivery O2 Flow Rate FiO2 07/30/17 18:00 92 07/30/17 16:00 91 07/30/17 16:00 98.0 91 24 141/66 (91) 96 07/30/17 14:57 97 40 07/30/17 14:00 91 07/30/17 12:00 91 07/30/17 12:00 97.9 91 24 155/67 (96) 97 07/30/17 10:00 89 07/30/17 08:40 99 40 07/30/17 08:00 93 07/30/17 08:00 98.0 93 32 157/73 (101) 93 07/30/17 07:00 99 Bi-Pap 40 07/30/17 06:00 88 07/30/17 04:26 98 40 07/30/17 04:00 97.8 91 27 157/71 (99) 95 07/30/17 04:00 91 07/30/17 02:00 93 07/30/17 00:00 90 07/30/17 00:00 98.5 90 28 134/66 (88) 97 07/29/17 23:40 94 40 07/29/17 22:00 93 07/29/17 20:38 96 40 07/29/17 20:00 98.1 91 24 155/68 (97) 99 07/29/17 20:00 91 07/30/17 07/30/17 07/31/17 15:00 23:00 07:00 Intake Total 300 ml 300 ml Output Total 1000 ml Balance 300 ml -700 ml Intake Oral 300 ml IV Total 300 ml Output Urine Total 1000 ml # Voids 2 # Bowel Movements 0 . Laboratory Tests Test 07/30/17 10:41 White Blood Count 7.5 TH/MM3 Red Blood Count 3.14 MIL/MM3 Hemoglobin 9.6 GM/DL Hematocrit 29.0 % Mean Corpuscular Volume 92.5 FL Mean Corpuscular Hemoglobin 30.5 PG Mean Corpuscular Hemoglobin Concent 33.0 % Red Cell Distribution Width 17.1 % Platelet Count 239 TH/MM3 Mean Platelet Volume 6.9 FL Neutrophils (%) (Auto) 66.7 % Lymphocytes (%) (Auto) 18.2 % Monocytes (%) (Auto) 7.5 % Eosinophils (%) (Auto) 6.9 % Basophils (%) (Auto) 0.7 % Neutrophils # (Auto) 5.0 TH/MM3 Lymphocytes # (Auto) 1.4 TH/MM3 Monocytes # (Auto) 0.6 TH/MM3 Eosinophils # (Auto) 0.5 TH/MM3 Basophils # (Auto) 0.1 TH/MM3 CBC Comment DIFF FINAL Differential Comment Laboratory Tests Test 07/30/17 10:41 07/30/17 14:45 Blood Urea Nitrogen 12 MG/DL Creatinine 1.27 MG/DL Random Glucose 74 MG/DL Total Protein 6.6 GM/DL Albumin 2.4 GM/DL Calcium Level 7.7 MG/DL Phosphorus Level 2.6 MG/DL 2.2 MG/DL Magnesium Level 1.8 MG/DL Alkaline Phosphatase 117 U/L Aspartate Amino Transf (AST/SGOT) 20 U/L Alanine Aminotransferase (ALT/SGPT) 26 U/L Total Bilirubin 0.4 MG/DL Sodium Level 143 MEQ/L Potassium Level 2.8 MEQ/L Chloride Level 105 MEQ/L Carbon Dioxide Level 27.9 MEQ/L Anion Gap 10 MEQ/L Estimat Glomerular Filtration Rate 40 ML/MIN Free Thyroxine 0.90 NG/DL Thyroid Stimulating Hormone 3rd Gen 0.840 uIU/ML Microbiology Date/Time Source Procedure Growth Status 07/30/17 14:45 Blood Peripheral Aerobic Blood Culture Pending Received 07/30/17 14:45 Blood Peripheral Anaerobic Blood Culture Pending Received 07/30/17 14:40 Blood Peripheral Aerobic Blood Culture Pending Received 07/30/17 14:40 Blood Peripheral Anaerobic Blood Culture Pending Received Imaging Last Impressions Chest X-Ray 07/30/17 0600 Signed Impressions: CONCLUSION: Mild interstitial prominence right greater than left. Gall Bladder Ultrasound 07/28/17 0000 Signed Impressions: CONCLUSION: Unremarkable sonographic appearance of the right upper quadrant Chest CT 07/27/17 0000 Signed Impressions: CONCLUSION: 1. Examination quality is degraded by respiratory motion artifact. There is ab normal interstitial lung disease bilaterally with features suggestive of idiopa thic pulmonary fibrosis or UIP. 2. There is a new small left pleural effusion. 3. Severe atherosclerotic disease and coronary artery calcification. Physical Exam CONSTITUTIONAL/GENERAL: This is an adequately nourished patient, in no apparent distress. BIPAP part face msk in place TUBES/LINES/DRAINS: SKIN: No jaundice, rashes, or lesions. Skin temperature appropriate. Not diaphoretic. SKIN is dry with extensive solar elastosis lesion and excoriations. NO rash CARDIOVASCULAR: Regular rate and rhythm without murmurs, gallops, or rubs. No JVD. Peripheral pulses symmetric. RESPIRATORY/CHEST: Symmetric, unlabored respirations.B/l fine crackles to auscultation. Breath sounds equal bilaterally. GASTROINTESTINAL: Abdomen soft, non-tender, nondistended. No hepato-splenomegaly , or palpable masses. No guarding. Bowel sounds present. MUSCULOSKELETAL: Extremities without clubbing, cyanosis, or edema. NEUROLOGICAL: obtunded Assessment & Plan Remarks COPD/IPF, advanced chronic resp insufficiency RLL PNA PSAE PNA recent Respiratory failure, progressive on NIVM prognosis is poor 2/2 underlying advanced pulmonary pathology sputum clx if feasible cont meropenem, zyvox will add azithromycin dw son @ b/s Adelia Jaramillo MD Jul 30, 2017 19:11
[2017-07-30] MEDS: ENOXAPARIN SODIUM 30 MG/0.3 ML SYRINGE SQ SCH (20:00)
[2017-07-30] MEDS: AZITHROMYCIN INJ 500 MG in SODIUM CHLOR 0.9% 250 ML INJ 250 ML IV SCH (20:00)
[2017-07-30] MEDS: MONTELUKAST SODIUM 10 MG TAB PO SCH (20:56)
[2017-07-30] MEDS: diphenhydrAMINE HCL 25 MG CAP PO PRN (23:03)
[2017-07-30] MEDS: LORazepam 0.5 MG TAB PO PRN (23:03)
[2017-07-31] VITALS (18 sets, daily range): BP systolic 111–157; BP diastolic 63–84; PULSE 85–100; RESP 28–64; TEMP 97.5–98.1; O2SAT 90–100
[2017-07-31] MEDS: SODIUM CHLOR 0.9% 1000 ML INJ 1,000 ML IV SCH ×3 (01:57→21:21)
[2017-07-31] MEDS: diphenhydrAMINE HCL 50 MG CAP PO PRN ×3 (02:18→18:15)
[2017-07-31] MEDS: methylPREDNISolone SOD SUCC 125 MG/2 ML VIAL IV PUSH SCH ×4 (03:00→21:19)
[2017-07-31] MEDS: RESP: ALBUTEROL 2.5 MG/IPRATROPIUM 0.5 MG NEB (SCH) NEB ×4 (03:29→20:45)
[2017-07-31] MEDS ORDERED: LORazepam 2 MG/ML VIAL IV PUSH ONE (05:45)
[2017-07-31] MEDS: ESTRADIOL 1 MG TAB PO SCH (08:52)
[2017-07-31] MEDS: DOCUSATE SODIUM 50 MG/SENNA 8.6 MG TAB PO SCH ×2 (08:52→21:00)
[2017-07-31] MEDS: guaiFENesin E.R. 600 MG TAB PO SCH ×2 (08:52→21:20)
[2017-07-31] MEDS: amLODIPine BESYLATE 5 MG TAB PO SCH (08:52)
[2017-07-31] MEDS: SODIUM CHLORIDE 0.9% FLUSH 10 ML FLUSH IV FLUSH SCH ×2 (08:54→21:18)
[2017-07-31] MEDS: BUDESONIDE-FORMOTEROL 160/4.5 MCG INHALER INH SCH ×2 (08:54→21:18)
[2017-07-31] MEDS: LINEZOLID 600 MG PREMIX 300 ML IV SCH ×2 (08:54→21:18)
[2017-07-31] MEDS: PANTOPRAZOLE SOD 40 MG DELAYED RELEASE TAB PO SCH (09:00)
--- NOTE | 2017-07-31 09:20 | OTSOAPIP ---
TIME SESSION COMPLETED: TREATMENT TIME: 10 MINS. CHART REVIEWED. ATTEMPTED TO EVALUATION PATIENT, PATIENT'S SON IS VERY FRUSTRATED REGARDING HIS MOTHERS HEALTH. STATING SHE HAS BEEN IN MULTIPLE HOSPITALS AND WAS IN [facility]AB [facility] FOR 10 DAYS AND AGAIN END UP IN THE HOSPITAL, REQUESTED TO HOLD THERAPY TODAY. PLAN: WILL SEE PATIENT TEXT TREATMENT DAY. INTERDISCIPLINARY COMMUNICATION: NURSE ORLIN PRESENT AND AWARE OF THE ABOVE : Therapist: CAROLYN RAMOS OTR/Jayashree Signature on file
[2017-07-31] MEDS: MEROPENEM INJ 1,000 MG in SODIUM CHLORIDE 0.9% INJ 100 ML IV SCH ×2 (10:00→22:37)
--- NOTE | 2017-07-31 10:24 | HHI.PR ---
Subjective Remarks Patient very agitated. Requiring a lot of support. Requiring Bipap all night. DW son and daughter at bedside. Objective Vitals Vital Signs Date Time Temp Pulse Resp B/P (MAP) Pulse Ox O2 Delivery O2 Flow Rate FiO2 07/31/17 08:24 97 40 07/31/17 04:20 95 40 07/31/17 04:00 98.0 92 34 157/84 (108) 95 07/31/17 00:00 98.1 89 28 143/75 (97) 98 07/30/17 23:55 97 40 07/30/17 20:05 95 40 07/30/17 20:03 95 BiPAP 40 07/30/17 20:00 98.2 95 39 125/59 (81) 91 07/30/17 19:00 96 Bi-Pap 40 07/30/17 18:00 92 07/30/17 16:00 91 07/30/17 16:00 98.0 91 24 141/66 (91) 96 07/30/17 14:57 97 40 07/30/17 14:00 91 07/30/17 12:00 91 07/30/17 12:00 97.9 91 24 155/67 (96) 97 I/O 07/30/17 07/30/17 07/30/17 07/31/17 07/31/17 07/31/17 07:00 15:00 23:00 07:00 15:00 23:00 Intake Total 1659 ml 300 ml 2136 ml 1145 ml Output Total 600 ml 1000 ml 500 ml Balance 1059 ml 300 ml 1136 ml 645 ml Intake Oral 300 ml 240 ml IV Total 1659 ml 300 ml 1836 ml 905 ml Output Urine Total 600 ml 1000 ml 500 ml # Voids 2 # Bowel Movements 0 0 0 Result Diagram: 07/30/17 1041 07/31/17 0347 Objective Remarks GENERAL: Patient is in no apparent respiratory distress, on BiPAP. CARDIOVASCULAR: Normal rate and regular rhythm without murmurs, gallops, or rubs. RESPIRATORY: Diffuse rhonchi bilaterally. Air movement is fair. GASTROINTESTINAL: Abdomen soft, non-tender, non-distended. Normal active bowel sounds MUSCULOSKELETAL: Extremities without cyanosis, or edema. NEURO: Alert and oriented to self. Moves all ext x4 PSYCH: Appear anxious. Procedures BiPAP A/P Problem List: (1) IPF (idiopathic pulmonary fibrosis) ICD Code: J84.112 - Idiopathic pulmonary fibrosis (2) HLD (hyperlipidemia) ICD Code: E78.5 - Hyperlipidemia, unspecified (3) Acute respiratory failure with hypoxia ICD Code: J96.01 - Acute respiratory failure with hypoxia Status: Acute (4) COPD exacerbation ICD Code: J44.1 - Chronic obstructive pulmonary disease with (acute) exacerbation Status: Acute Assessment and Plan COPD/IPF, advanced chronic resp insufficiency RLL PNA PSAE PNA recent on antibiotics per infectious disease Continue on Mucinex twice daily Continue on Solu-Medrol IV hold oral prednisone Continue Symbicort Duo nebs as needed and schedule Patient is not improving. Known pulmonary fibrosis and advanced COPD. poor prognosis. Palliative care and Hospice to meet with the patient Will add Ativan IV as needed to help with agitation. Hyperlipidemia continue on home medications Hypertension continue on home medications Depression anxiety resume home medication Renal insufficiency/dehydration -Follow renal functions GI prophylaxis with Protonix DVT prophylaxis with Lovenox Discussed with RN and patient and family Discharge Planning Continue care in the ICU. Lakeisha Caldwell MD Jul 31, 2017 10:24
[2017-07-31] MEDS: LORazepam 2 MG/ML VIAL IV PUSH PRN ×2 (12:10→22:37)
[2017-07-31] MEDS: LORazepam 0.5 MG TAB PO SCH ×2 (14:11→21:19)
[2017-07-31 16:42] LABS: HEMOGLOBIN A1C 6.3 % (4.3-6.0)
--- NOTE | 2017-07-31 18:56 | PD.CONS ---
Consult Service Palliative Care . Consult Requested By Dr. Roman . Primary Care Physician Dr. Landaverde . Reason for Consultation a. To assist with evaluation and management of symptoms including: dyspnea, anxiety. b. To assist medical decision maker(s) with: better understanding of current medical conditions; weighing benefits/burdens of medical treatment options; making medical treatment decisions. . HPI History of Present Illness Ms. Begum is an 82 year old female with past medical history of severe COPD oxygen dependent, emphysema, pulmonary fibrosis, arthritis, anxiety, scoliosis, hyperlipidemia and diabetes. Patient has had ongoing trajectory of decline dating back to March 2017. The patient has had pre-acute care hospitalizations prior to this admission since March 26 complications of COPD , pulmonary fibrosis and Pseudomonas pneumonia. Family reports that patient has been on antibiotics for past few months. She was recently [facility] via P[facility] line. Patient presented to [facility] emergency department on 07/26/17 via EMS from the [facility] facility with shortness of breath. Patient also reported some dry cough, laryngitis. Denied any fever or chest pain. Reported shortness of breath was moderate intensity, no alleviating or exacerbating factors. Patient has been on IV antibiotics for recent pneumonia. Upon arrival to the emergency department: * VS: Temp 98, pulse 89, respiration 18, BP 141/67, oxygen saturation 94% on 3 L nasal cannula * WBC 9.1, hemoglobin 8.9, hematocrit 28.2, platelet count 223, neutrophil 68.8% * BUN 27, creatinine 2.08, glucose 125, calcium 8.4, sodium 143, potassium 4.0, chloride 108, carbon dioxide 23.5, GFR 23 * Chest x-ray-new intra-alveolar infiltrate within the right lower lobe, chronic interstitial changes. * CT chest -abnormal interstitial lung disease bilaterally with features suggestive of idiopathic pulmonary fibrosis, new left small pleural effusion, severe atherosclerotic disease and coronary artery calcification. Patient was admitted with to ICU on BiPAP. Pulmonology, Dr. Marks was consulted. Patient is currently alternate code: No intubation, desires chest compressions, shock and ACLS. I spoke with Dr. Marks his current recommendations for consideration of transition to comfort focused care, hospice support and DNR status. Medical team and pulmonology indicate poor prognosis. Hospice was also consulted, family was unaware of hospice consult at the time hospice visited which upset family. Therefore palliative care was consulted to assist with further clarification of treatment goals. . Function/Cognitive Trajectory Approximately 1 year ago the patient was a very active person who was attending [employer] classes, driving herself and independent. Patient has had steep trajectory of decline dating back to March 2017. This is the patient's fourth acute care hospitalization since March 2017. She has been in and out of the hospital alternating with rehab and home. She is now dependent for her care needs, has difficulty ambulating or even moving secondary to oxygen desaturation shortness of breath and anxiety. She has been oxygen dependent since discharge from the hospital in April 2017. . Review of Systems ROS Limitations: Hearing Impaired (hearing aides) Constitutional: COMPLAINS OF: Fatigue (Sleeps about 20 hours per day), Change in appetite (Decreased), Generalized weakness Endocrine: DENIES: Abnorml menstrual pattern, Heat/cold intolerance, Polydipsia , Polyuria, Polyphagia Eyes: DENIES: Blurred vision, Diplopia, Eye inflammation, Eye pain, Vision loss , Photosensitivity, Double Vision, Blind spots Respiratory: COMPLAINS OF: Cough, Wheezing, Sputum production, Shortness of breath Cardiovascular: COMPLAINS OF: Dyspnea on Exertion, Orthopnea Gastrointestinal: DENIES: Abdominal pain, Black stools, Bloody stools, Constipation, Diarrhea, Nausea, Vomiting, Difficulty Swallowing, Anorexia, Dyspepsia or heartburn, Excessive gas, Bloating, Vomiting blood Musculoskeletal: COMPLAINS OF: Back pain Hematologic/Lymphatics: COMPLAINS OF: Bruising Neurologic: COMPLAINS OF: Poor Balance Psychiatric: COMPLAINS OF: Anxiety Past Family Social History Coded Allergies: codeine (Unverified Allergy, Intermediate, HIVES, 07/26/17) phenobarbital (Unverified Allergy, Unknown, 07/26/17) Past Medical History COPD Emphysema Pulmonary Fibrosis Hyperlipidemia DM Anxiety Depression . Past Surgical History Ruptured colon with colostomy Colostomy reversal L3 L4 disc repair Cataract surgery . Reported Medications Reported Meds & Active Scripts Active Reported Prednisone 10 Mg Tab 10 Mg PO DAILY Mirtazapine 30 Mg Tab 30 Mg PO HS Medroxyprogesterone Acetate 5 Mg Tab 2.5 Mg PO DAILY Start day 21 Humalog Inj (Insulin Human Lispro) 1,000 Unit/10 Ml Vial 0-10 Units SQ ACHS Max dose at bedtime:( )units; sugars< 70,(0)units; sugars 150-199,(1)unit; sugars 200-249,(3)units; sugars 250-299,(5)units; sugars 300-349,(7)units; sugars more than 349,(9)units. Duoneb (Ipratropium-Albuterol Neb) 0.5-2.5 Mg/3 Ml Neb 1 Nebule INH Q4HR NEB Dulcolax Supp (Bisacodyl) 10 Mg Supp 10 Mg RECTAL DAILY PRN Ciprofloxacin (Ciprofloxacin HCl) 750 Mg Tab 750 Mg PO BID Acetaminophen Pm Extra St (Diphenhydramine-Acetaminophen) 500-25 mg Tab 500 Mg PO HS PRN Oxybutynin ER 24 HR (Oxybutynin Chloride) 15 Mg Tab 5 Mg PO DAILY Montelukast (Montelukast Sodium) 10 Mg Tab 10 Mg PO HS Simvastatin 40 Mg Tab 40 Mg PO HS Lorazepam 0.5 Mg Tab 0.5 Mg PO Q8HR PRN Estradiol 0.5 Mg Tab 0.5 Mg PO DAILY Escitalopram (Escitalopram Oxalate) 20 Mg Tab 20 Mg PO DAILY . Current Medications Medications (Trade) Dose Ordered Sig/Yogi Route Start Time Stop Time Status Last Admin (Estradiol) 0.5 mg DAILY PO 07/27/17 09:00 07/31/17 08:52 (Provera) 2.5 mg DAILY PO 07/27/17 09:00 07/31/17 08:52 (Singulair) 10 mg HS PO 07/26/17 21:00 07/30/17 20:56 (NS Flush) 2 ml UNSCH PRN IV FLUSH 07/26/17 19:00 (NS Flush) 2 ml BID IV FLUSH 07/26/17 21:00 07/31/17 08:54 (Narcan Inj) 0.4 mg UNSCH PRN IV PUSH 07/26/17 19:00 (Aria-Colace) 1 tab BID PO 07/26/17 21:00 07/31/17 08:52 (Milk Of Magnesia Liq) 30 ml Q12H PRN PO 07/26/17 19:00 (Senokot) 17.2 mg Q12H PRN PO 07/26/17 19:00 (Dulcolax Supp) 10 mg DAILY PRN RECTAL 07/26/17 19:00 (Lactulose Liq) 30 ml DAILY PRN PO 07/26/17 19:00 07/31/17 08:53 (Tylenol) 500 mg HS PRN PO 07/26/17 19:30 (Benadryl) 25 mg HS PRN PO 07/26/17 19:30 07/30/17 23:03 Sodium Chloride 1,000 ml @ 100 mls/hr Q10H IV 07/26/17 22:00 07/31/17 12:00 (Pill Splitter) 1 ea UNSCH PRN OTHER 07/27/17 14:15 (Lovenox Inj) 30 mg Q24H SQ 07/27/17 20:00 07/30/17 20:00 (Norvasc) 5 mg DAILY PO 07/29/17 09:00 07/31/17 08:52 Meropenem 1000 mg/ Sodium Chloride 100 ml @ 200 mls/hr Q12H IV 07/29/17 22:00 07/31/17 10:00 Linezolid 300 ml @ 300 mls/hr Q12H IV 07/29/17 21:00 07/31/17 08:54 (Mucinex Er) 600 mg BID PO 07/30/17 09:45 07/31/17 08:52 (SoluMEDROL INJ) 60 mg Q6H IV PUSH 07/30/17 15:00 07/31/17 14:11 (Symbicort 160-4.5 Mcg Inh) 2 puff Q12HR INH 07/30/17 09:45 07/31/17 08:54 (Duoneb Neb) 1 ampule Q2HR NEB PRN NEB 07/30/17 09:45 07/30/17 23:54 (Duoneb Neb) 1 ampule Q6HR NEB NEB 07/30/17 10:00 07/31/17 08:21 (Protonix) 40 mg DAILY PO 07/31/17 09:00 07/31/17 09:00 Potassium Chloride 100 ml @ 50 mls/hr Q2H PRN IV 07/30/17 12:15 Potassium Chloride 100 ml @ 50 mls/hr Q2H PRN IV 07/30/17 12:15 07/30/17 20:54 (K-Lyte Cl Eff) 50 meq UNSCH PRN PO 07/30/17 12:15 Potassium Chloride 100 ml @ 25 mls/hr UNSCH PRN IV 07/30/17 12:15 Potassium Chloride 100 ml @ 50 mls/hr Q2H PRN IV 07/30/17 12:15 Magnesium Sulfate 4 gm/Sodium Chloride 100 ml @ 50 mls/hr UNSCH PRN IV 07/30/17 12:15 (Mag-Ox) 800 mg UNSCH PRN PO 07/30/17 12:15 Magnesium Sulfate 2 gm/Sodium Chloride 100 ml @ 50 mls/hr UNSCH PRN IV 07/30/17 12:15 (K-Phos) 2,000 mg Q4H PRN PO 07/30/17 12:15 Sodium Phosphate 30 mmol/Sodium Chloride 250 ml @ 42 mls/hr UNSCH PRN IV 07/30/17 12:15 07/31/17 13:30 (K-Phos) 2,000 mg UNSCH PRN PO/TUBE 07/30/17 12:15 Potassium Phosphate 30 mmol/ Sodium Chloride 260 ml @ 42 mls/hr UNSCH PRN IV 07/30/17 12:15 (Benadryl) 50 mg Q4H PRN PO 07/30/17 18:15 07/31/17 12:10 Azithromycin 500 mg/Sodium Chloride 250 ml @ 250 mls/hr Q24H IV 07/30/17 20:00 07/30/17 20:00 (Ativan Inj) 1 mg Q2H PRN IV PUSH 07/31/17 10:30 07/31/17 12:10 (Ativan) 0.5 mg Q8HR PO 07/31/17 14:00 07/31/17 14:11 (Eucerin Cream) 1 applic Q12H PRN TOPICAL 07/31/17 14:30 Family History Father of blood clots Mother of old age in 80's She has 13 siblings, 3 of cancer and 3 of heart disease. . Substance Use Tobacco: Remote history of smoking. Alcohol: Denies alcohol use. Prescription med abuse: None. Illicits: None. . Psychosocial History . Has 1 son who lives in [place] and a daughter who lives in [place]. . Spiritual/Cultural Factors Unknown. . Living Will: Copy in medical record Health Care Surrogate: Copy in medical record Date completed: April 26, 2017 . Health Care Surrogate(s): Patient is currently capacitated to make her own decisions, though has some mild confusion, would recommend shared decision making with HCS. Designation of healthcare surrogate paperwork names her son Umberto Begum Junior as primary healthcare surrogate and her daughter Jackie Mckinney as alternate surrogate. . Today's verbally stated goals: Patient is considering CODE STATUS. Family/friends goals: Family is open to hospice services if patient desires, patient is not yet ready to make these decisions. Family is continuing conversations with patient regarding CODE STATUS. . Ethical and Legal Issues Patient is currently capacitated to make her own decisions, though has some mild confusion, would recommend shared decision making with HCS. Designation of healthcare surrogate paperwork names her son Umberto Begum Junior as primary healthcare surrogate and her daughter Jackie Mckinney as alternate surrogate. . Physical Exam Vital Signs Date Time Temp Pulse Resp B/P (MAP) Pulse Ox O2 Delivery O2 Flow Rate FiO2 07/31/17 14:00 85 07/31/17 13:30 93 High Flow Nasal Cannula 20.00 60 07/31/17 13:01 86 07/31/17 12:00 95 07/31/17 12:00 97.5 07/31/17 11:01 93 07/31/17 10:00 100 07/31/17 09:00 100 07/31/17 08:24 97 40 07/31/17 08:00 89 07/31/17 08:00 97.5 07/31/17 07:00 94 Bi-Pap 5.00 40 07/31/17 04:20 95 40 07/31/17 04:00 98.0 92 34 157/84 (108) 95 07/31/17 00:00 98.1 89 28 143/75 (97) 98 07/30/17 23:55 97 40 07/30/17 20:05 95 40 07/30/17 20:03 95 BiPAP 40 07/30/17 20:00 98.2 95 39 125/59 (81) 91 07/30/17 19:00 96 Bi-Pap 40 07/30/17 18:00 92 Exam CONSTITUTIONAL/GENERAL: This is an elderly, thin patient on BiPAP. TUBES/LINES/DRAINS: BiPAP, PICC line, SCDs. SKIN: No jaundice, rashes, or lesions. Ecchymoses on upper extremities. No wounds seen anteriorly. Skin temperature appropriate. Not diaphoretic. HEAD: Atraumatic. Normocephalic. EYES: Pupils equal and round and reactive. ENT: Hard of Hearing. Nose without bleeding or purulent drainage. Dry lips. NECK: Trachea midline. CARDIOVASCULAR: Regular rate and rhythm without murmurs, gallops, or rubs. RESPIRATORY/CHEST: Scattered course breath sounds. Diminished bilaterally. GASTROINTESTINAL: Abdomen soft, non-tender, nondistended. No guarding. Bowel sounds present. GENITOURINARY: Without palpable bladder distension. MUSCULOSKELETAL: Extremities without clubbing, cyanosis, or edema. LYMPHATICS: No palpable cervical or supraclavicular adenopathy. NEUROLOGICAL: Awakens easily, lethargic. Answers questions, weak voice sometimes difficult to understand. Follows commands. Generalized weakness. PSYCHIATRIC: + anxiety. . Diagnostic Tests Laboratory Laboratory Tests Test 07/29/17 13:34 07/30/17 10:41 07/30/17 14:45 07/30/17 14:50 Blood Gas Puncture Site RT RADIAL RT RADIAL Blood Gas Patient Temperature 98.6 98.6 Blood Gas HCO3 24 mmol/L (22-26) 28 mmol/L (22-26) Blood Gas Base Excess 0.1 mmol/L (-2-2) 3.7 mmol/L (-2-2) Blood Gas Oxygen Saturation 87 % (90-100) 95 % (90-100) Arterial Blood pH 7.41 (7.380-7.420) 7.42 (7.380-7.420) Arterial Blood Partial Pressure CO2 39 mmHg (38-42) 45 mmHg (38-42) Arterial Blood Partial Pressure O2 59 mmHg (61-120) 106 mmHg (61-120) Arterial Blood Oxygen Content 11.7 Vol % (12.0-20.0) 13.9 Vol % (12.0-20.0) Arterial Blood Carboxyhemoglobin 1.4 % (0-4) 1.2 % (0-4) Arterial Blood Methemoglobin 1.2 % (0-2) 1.3 % (0-2) Blood Gas Hemoglobin 9.5 G/DL (12.0-16.0) 10.3 G/DL (12.0-16.0) Oxygen Delivery Device SIMPLE MASK BIPAP Blood Gas Liter Flow 6 L/M Blood Gas Inspired Oxygen 40 % 40 % White Blood Count 7.5 TH/MM3 (4.0-11.0) Red Blood Count 3.14 MIL/MM3 (4.00-5.30) Hemoglobin 9.6 GM/DL (11.6-15.3) Hematocrit 29.0 % (35.0-46.0) Mean Corpuscular Volume 92.5 FL (80.0-100.0) Mean Corpuscular Hemoglobin 30.5 PG (27.0-34.0) Mean Corpuscular Hemoglobin Concent 33.0 % (32.0-36.0) Red Cell Distribution Width 17.1 % (11.6-17.2) Platelet Count 239 TH/MM3 (150-450) Mean Platelet Volume 6.9 FL (7.0-11.0) Neutrophils (%) (Auto) 66.7 % (16.0-70.0) Lymphocytes (%) (Auto) 18.2 % (9.0-44.0) Monocytes (%) (Auto) 7.5 % (0.0-8.0) Eosinophils (%) (Auto) 6.9 % (0.0-4.0) Basophils (%) (Auto) 0.7 % (0.0-2.0) Neutrophils # (Auto) 5.0 TH/MM3 (1.8-7.7) Lymphocytes # (Auto) 1.4 TH/MM3 (1.0-4.8) Monocytes # (Auto) 0.6 TH/MM3 (0-0.9) Eosinophils # (Auto) 0.5 TH/MM3 (0-0.4) Basophils # (Auto) 0.1 TH/MM3 (0-0.2) CBC Comment DIFF FINAL Differential Comment Blood Urea Nitrogen 12 MG/DL (7-18) Creatinine 1.27 MG/DL (0.50-1.00) Random Glucose 74 MG/DL (74-106) Total Protein 6.6 GM/DL (6.4-8.2) Albumin 2.4 GM/DL (3.4-5.0) Calcium Level 7.7 MG/DL (8.5-10.1) Phosphorus Level 2.6 MG/DL (2.5-4.9) 2.2 MG/DL (2.5-4.9) Magnesium Level 1.8 MG/DL (1.5-2.5) Alkaline Phosphatase 117 U/L (45-117) Aspartate Amino Transf (AST/SGOT) 20 U/L (15-37) Alanine Aminotransferase (ALT/SGPT) 26 U/L (10-53) Total Bilirubin 0.4 MG/DL (0.2-1.0) Sodium Level 143 MEQ/L (136-145) Potassium Level 2.8 MEQ/L (3.5-5.1) Chloride Level 105 MEQ/L (98-107) Carbon Dioxide Level 27.9 MEQ/L (21.0-32.0) Anion Gap 10 MEQ/L (5-15) Estimat Glomerular Filtration Rate 40 ML/MIN (>89) Free Thyroxine 0.90 NG/DL (0.76-1.46) Thyroid Stimulating Hormone 3rd Gen 0.840 uIU/ML (0.358-3.740) Blood Gas Ventilator Setting IPAP+12/ EPAP+6 Test 07/31/17 03:47 Potassium Level 3.7 MEQ/L (3.5-5.1) Result Diagram: 07/30/17 1041 07/31/17 0347 Microbiology Microbiology Date/Time Source Procedure Growth Status 07/30/17 14:45 Blood Peripheral Aerobic Blood Culture - Preliminary NO GROWTH IN 1 DAY Resulted 07/30/17 14:45 Blood Peripheral Anaerobic Blood Culture - Preliminary NO GROWTH IN 1 DAY Resulted 07/30/17 14:40 Blood Peripheral Aerobic Blood Culture - Preliminary NO GROWTH IN 1 DAY Resulted 07/30/17 14:40 Blood Peripheral Anaerobic Blood Culture - Preliminary NO GROWTH IN 1 DAY Resulted Imaging Last Impressions Chest X-Ray 07/30/17 0600 Signed Impressions: CONCLUSION: Mild interstitial prominence right greater than left. Gall Bladder Ultrasound 07/28/17 0000 Signed Impressions: CONCLUSION: Unremarkable sonographic appearance of the right upper quadrant Chest CT 07/27/17 0000 Signed Impressions: CONCLUSION: 1. Examination quality is degraded by respiratory motion artifact. There is ab normal interstitial lung disease bilaterally with features suggestive of idiopa thic pulmonary fibrosis or UIP. 2. There is a new small left pleural effusion. 3. Severe atherosclerotic disease and coronary artery calcification. . Patient/Family Conference Present at Family Conference: Met with sonUmberto and daughter, Sridevi. Also present Tennille with hospice admissions. Family Conference Time (mins): 120 Family Conference Location: Bedside, Consult Room, Hallway Issues Discussed: * Palliative care role, purpose, approach * Additional medical, psychosocial, and spiritual history * Patients general health, functional status, and cognitive changes in the months leading up to the current hospitalization * Patient/family understanding of the current medical problems * Patient/family understanding of prognosis * Patients goals of care as best understood from advance directives and/or conversations and/or values * Current medical treatment options and benefits/burdens of those options * Likely scenarios comparing ongoing aggressive care with a transition to comfort measures only * Questions answered to the best of my ability * Palliative care contact information provided Lengthy conversation with son and daughter. Also present hospice admission nurse Tennille. Spoke with Dr. Marks, Dr. Jaramillo and nurse Vivi before and after family meeting. Also met with patient, son and daughter at bedside. Long conversation regarding current medical problems, prognosis, complicating factors, options moving forward. In speaking regarding options we discussed continued aggressive care, CODE STATUS, hospice services, oxygen usage, levels of oxygen, medication use to manage symptoms related to pulmonary fibrosis and COPD. After lengthy conversation we attempted to meet with the patient at bedside, she is somewhat lethargic able to answer some questions, difficult to understand some of what she is saying secondary to weak voice. It should also be noted that patient is on high flow oxygen during this visit. Patient seems somewhat reluctant to engage in conversation, she has a good understanding of her current lung conditions and that Dr. Blank was "concerned about worsening lung function." She understands that pulmonary fibrosis/COPD/ emphysema are not reversible conditions and that we are concerned that her pulmonary function is worsening despite her ongoing aggressive care and treatment of recent pneumonias. She verbalizes the same concerns, however does not want to discuss her end-of-life wishes. I have asked her to consider CODE STATUS, explaining at great length her pulmonary status, she remains 100% clear that she does not want to be intubated/ placed on mechanical ventilation. I have explained that cardiac resuscitation in the circumstances of end-stage lung disease will only provide a painful . She states that she is concerned about her children. I have explained to the patient that her children will support her wishes and needs guidance regarding what her wishes are. Patient and her son will further discuss CODE STATUS and she reports that she will let me know "this afternoon." She indicates that it is okay if I revisit her tomorrow. Will attempt to further clarify goals throughout hospital course. Prior to conversation with Dr. Jaramillo family was considering transition to comfort focused care with hospice support if the patient was in agreement. Patient is not open to further conversation regarding continued aggressive care versus hospice support during my visit today. Her only question regarding her future is will she be able to walk again, I have advised that I am concerned that her mobility will remain limited secondary to her severe/end-stage pulmonary status. Following my meeting with the patient I again spoke with the son, reviewed my conversation with Dr. Marks regarding MAC, that this does not change our prior conversation only complicates future treatment. I have advised him that I am concerned that her pulmonary status is such that she will not recover, that she may not be able to tolerate multiple antibiotics and that her life expectancy is likely limited. . Assessment and Plan Disease Oriented Problem List: (1) IPF (idiopathic pulmonary fibrosis) (2) RLL pneumonia (3) LOVE (acute kidney injury) (4) HLD (hyperlipidemia) (5) Acute respiratory failure with hypoxia (6) COPD exacerbation Symptom Scale: (1) Dyspnea (2) Anxiety Pertinent Non-Medical Issues Psychosocial: . Supported by her son, Umberto and daughter, Jackie. Spiritual: Unknown. Legal:Patient is currently capacitated to make her own decisions, though has some mild confusion, would recommend shared decision making with [facility]. Designation of healthcare surrogate paperwork names her son Umberto Begum Junior as primary healthcare surrogate and her daughter Jackie Mckinney as alternate surrogate. Ethical issues impacting care: No known concerns at this time. Peer Important Contacts * shon Munoz/[facility]: [phone] * Jackie Mckinney, daughter/alternate [facility]: [phone] Prognosis Patient is an 82-year-old female with multiple medical comorbidities including end-stage COPD pulmonary fibrosis/emphysema admitted with pneumonia, COPD exacerbation. Patient has had for acute care hospitalization since March 2017. She has had ongoing trajectory of functional and nutritional decline since that time, now dependent for her care. She is admitted to ICU on BiPAP/ high flow oxygen, now with MAC infection, unlikely she will be able to tolerate prolonged antibiotic course over 18 months. Does not appear to have a life expectancy that long. Hospice appropriate if goals are comfort oriented. . Code Status: Alternative Code (No intubation. Desires chest compressions, shock and ACLS) Plan * Patient is currently capacitated to make her own decisions, though has some mild confusion, would recommend shared decision making with HCS. Designation of healthcare surrogate paperwork names her son Umberto Begum Junior as primary healthcare surrogate and her daughter Jackie Mckinney as alternate surrogate. * ALTERNATE CODE: No intubation * Patient and her family are considering CODE STATUS. Family seems to be struggling with decisions given patient's continued report of wanting to fight. She is considering CODE STATUS. Welcome to continued palliative care conversations. Family is now open to consideration of hospice if patient agrees. Palliative care will continue conversations with patient and family to clarify goals in the coming days. Patient is not yet ready to make these decisions today. * SYMPTOMS: Anxiety and dyspnea: Secondary to severe/end-stage COPD/pulmonary fibrosis. Scheduled lorazepam 0.5 mg every 8 hours added. Has as needed Lorazepam also available every 2 hours as needed. Will monitor need and effect. Patient may also benefit from low-dose Roxanol for management of shortness of breath, will further clarify goals before making this determination. * Palliative care number provided. * Palliative care will continue to follow throughout hospital course to assist with symptom management clarification of treatment goals. . Thank you for the opportunity to participate in the care of Ms. Begum. Attestation To help prompt me to consider important information that might be impacting today's encounter and assessment, information from prior notes written by myself or my colleagues may have been "brought forward" into today's note. My signature on this note, however, is an attestation that I personally performed the exam, history, and/or decision-making noted today, and, unless otherwise indicated, the interactions with patient, family, and staff as well as the review of records all occurred today. I also attest that the listed assessment and stated plan reflect my best clinical judgment today based on the combination of historical information, prior notes, and today's exam/ interactions. When time spent is documented, it refers only to time spent today by the signer, or if indicated, combined time spent today by collaborating physician/nurse practitioner. . Ramona Hilario Jul 31, 2017 18:56
[2017-07-31] MEDS: ENOXAPARIN SODIUM 30 MG/0.3 ML SYRINGE SQ SCH (21:18)
[2017-07-31] MEDS: MONTELUKAST SODIUM 10 MG TAB PO SCH (21:19)
[2017-07-31] MEDS: AZITHROMYCIN INJ 500 MG in SODIUM CHLOR 0.9% 250 ML INJ 250 ML IV SCH (21:20)
--- NOTE | 2017-07-31 21:35 | HHI.HCPN ---
9pm: Call from CIOR Mclean to report nursing staff indicates patient/ family have decided they desire NO CODE (DNR/DNI) status. I advised I will call son, Umberto COWAN to verify. 9:18pm: Return call from sonUmberto. He indicates he and his mother have been talking since I left this afternoon and she has decided she wants to peacefully and naturally. She desires DNR/DNI status. Goals remain aggressive short of NO CODE (DNR/DNI) for now. We agreed to speak again 08/01/17 for medical update and any questions they may have in follow up from our difficult conversation today. He verbalizes appreciation. Notified Jacquelyn Rutherford and nursing staff via phone. . Ramona Hilario Jul 31, 2017 21:35
[2017-07-31] MEDS: EUCERIN CREAM 120 GM JAR TOPICAL PRN (21:39)
--- NOTE | 2017-07-31 23:10 | HHI.IDPN ---
Subjective Subjective Remarks off BIPAP Not expectorating palliative got involv ed attempted to talk to Dr De Leon - [place] week clx form [facility] hospital with tressa HUSAIN and MADELAINE ([place]), sensitivities not availbale Antibiotics meropenem zyvox azithro Allergies: Coded Allergies: codeine (Unverified Allergy, Intermediate, HIVES, 07/26/17) phenobarbital (Unverified Allergy, Unknown, 07/26/17) Objective . Vital Signs Date Time Temp Pulse Resp B/P (MAP) Pulse Ox O2 Delivery O2 Flow Rate FiO2 07/31/17 20:47 93 High Flow Nasal Cannula 25.00 60 07/31/17 18:00 92 07/31/17 18:00 92 37 07/31/17 17:00 92 64 141/73 (95) 93 07/31/17 16:00 100 52 111/67 (82) 90 07/31/17 14:00 85 07/31/17 13:30 93 High Flow Nasal Cannula 20.00 60 07/31/17 13:01 86 07/31/17 12:00 95 07/31/17 12:00 97.5 07/31/17 11:01 93 07/31/17 10:00 100 07/31/17 09:00 100 07/31/17 08:24 97 40 07/31/17 08:00 89 07/31/17 08:00 97.5 07/31/17 07:00 94 Bi-Pap 5.00 40 07/31/17 04:20 95 40 07/31/17 04:00 98.0 92 34 157/84 (108) 95 07/31/17 00:00 98.1 89 28 143/75 (97) 98 07/30/17 23:55 97 40 07/31/17 07/31/17 08/01/17 15:00 23:00 07:00 Intake Total 1600 ml Output Total 1700 ml Balance -100 ml Intake Oral 1600 ml Output Urine Total 1700 ml # Bowel Movements 1 . Laboratory Tests Test 07/30/17 10:41 White Blood Count 7.5 TH/MM3 Red Blood Count 3.14 MIL/MM3 Hemoglobin 9.6 GM/DL Hematocrit 29.0 % Mean Corpuscular Volume 92.5 FL Mean Corpuscular Hemoglobin 30.5 PG Mean Corpuscular Hemoglobin Concent 33.0 % Red Cell Distribution Width 17.1 % Platelet Count 239 TH/MM3 Mean Platelet Volume 6.9 FL Neutrophils (%) (Auto) 66.7 % Lymphocytes (%) (Auto) 18.2 % Monocytes (%) (Auto) 7.5 % Eosinophils (%) (Auto) 6.9 % Basophils (%) (Auto) 0.7 % Neutrophils # (Auto) 5.0 TH/MM3 Lymphocytes # (Auto) 1.4 TH/MM3 Monocytes # (Auto) 0.6 TH/MM3 Eosinophils # (Auto) 0.5 TH/MM3 Basophils # (Auto) 0.1 TH/MM3 CBC Comment DIFF FINAL Differential Comment Laboratory Tests Test 07/30/17 10:41 07/30/17 14:45 07/31/17 03:47 Blood Urea Nitrogen 12 MG/DL Creatinine 1.27 MG/DL Random Glucose 74 MG/DL Total Protein 6.6 GM/DL Albumin 2.4 GM/DL Calcium Level 7.7 MG/DL Phosphorus Level 2.6 MG/DL 2.2 MG/DL Magnesium Level 1.8 MG/DL Alkaline Phosphatase 117 U/L Aspartate Amino Transf (AST/SGOT) 20 U/L Alanine Aminotransferase (ALT/SGPT) 26 U/L Total Bilirubin 0.4 MG/DL Sodium Level 143 MEQ/L Potassium Level 2.8 MEQ/L 3.7 MEQ/L Chloride Level 105 MEQ/L Carbon Dioxide Level 27.9 MEQ/L Anion Gap 10 MEQ/L Estimat Glomerular Filtration Rate 40 ML/MIN Hemoglobin A1c 6.3 % Free Thyroxine 0.90 NG/DL Thyroid Stimulating Hormone 3rd Gen 0.840 uIU/ML Microbiology Date/Time Source Procedure Growth Status 07/30/17 14:45 Blood Peripheral Aerobic Blood Culture - Preliminary NO GROWTH IN 1 DAY Resulted 07/30/17 14:45 Blood Peripheral Anaerobic Blood Culture - Preliminary NO GROWTH IN 1 DAY Resulted 07/30/17 14:40 Blood Peripheral Aerobic Blood Culture - Preliminary NO GROWTH IN 1 DAY Resulted 07/30/17 14:40 Blood Peripheral Anaerobic Blood Culture - Preliminary NO GROWTH IN 1 DAY Resulted Imaging Last Impressions Chest X-Ray 07/30/17 0600 Signed Impressions: CONCLUSION: Mild interstitial prominence right greater than left. Gall Bladder Ultrasound 07/28/17 0000 Signed Impressions: CONCLUSION: Unremarkable sonographic appearance of the right upper quadrant Chest CT 07/27/17 0000 Signed Impressions: CONCLUSION: 1. Examination quality is degraded by respiratory motion artifact. There is ab normal interstitial lung disease bilaterally with features suggestive of idiopa thic pulmonary fibrosis or UIP. 2. There is a new small left pleural effusion. 3. Severe atherosclerotic disease and coronary artery calcification. Physical Exam CONSTITUTIONAL/GENERAL: This is an adequately nourished patient, in no apparent distress. on high flow O2 TUBES/LINES/DRAINS: SKIN: No jaundice, rashes, or lesions. Skin temperature appropriate. Not diaphoretic. SKIN is dry with extensive solar elastosis lesion and excoriations. NO rash CARDIOVASCULAR: Regular rate and rhythm without murmurs, gallops, or rubs. No JVD. Peripheral pulses symmetric. RESPIRATORY/CHEST: Symmetric, unlabored respirations.B/l fine crackles to auscultation. Breath sounds equal bilaterally. GASTROINTESTINAL: Abdomen soft, non-tender, nondistended. No hepato-splenomegaly , or palpable masses. No guarding. Bowel sounds present. MUSCULOSKELETAL: Extremities without clubbing, cyanosis, or edema. NEUROLOGICAL: more awake, opens eyes and makes eye contact Assessment & Plan Remarks COPD/IPF, advanced chronic resp insufficiency RLL PNA Also a non tuberculous mycobacterial pulmonary infection tx was discussed with pt's son in presence of palliative care team: he wants time to make decision if to start MAC tx PSAE PNA recent Respiratory failure, improved prognosis is poor 2/2 underlying advanced pulmonary pathology sputum clx if feasible cont meropenem, zyvox cont azithromycin will start empiric FEDERICO tx if family agrees dw son @ b/s dariel palliative care Adelia Jaramillo MD Jul 31, 2017 23:10
[2017-08-01] VITALS (31 sets, daily range): BP systolic 126–194; BP diastolic 60–94; PULSE 80–105; RESP 22–40; TEMP 97.7–98.3; O2SAT 54–98
[2017-08-01] MEDS: RESP: ALBUTEROL 2.5 MG/IPRATROPIUM 0.5 MG NEB (SCH) NEB ×4 (02:43→21:29)
[2017-08-01] MEDS: methylPREDNISolone SOD SUCC 125 MG/2 ML VIAL IV PUSH SCH ×3 (02:50→14:55)
[2017-08-01] MEDS: LORazepam 0.5 MG TAB PO SCH ×3 (06:09→21:38)
[2017-08-01 06:16] LABS: HEMATOCRIT 27.2 % (35.0-46.0); MEAN CELL VOLUME 92.7 FL (80.0-100.0); MEAN CORPUSCULAR HEMOGLOBIN 30.7 PG (27.0-34.0); MEAN CORPUSCULAR HGB CONC 33.2 % (32.0-36.0); MEAN PLATELET VOLUME 7.5 FL (7.0-11.0); PLATELET COUNT 269 TH/MM3 (150-450); RED BLOOD COUNT 2.93 MIL/MM3 (4.00-5.30); RED CELL DISTRIBUTION WIDTH 16.9 % (11.6-17.2); WHITE BLOOD COUNT 10.5 TH/MM3 (4.0-11.0)
[2017-08-01 06:27] LABS: BICARBONATE 23.4 MEQ/L (21.0-32.0); CALCIUM 7.4 MG/DL (8.5-10.1); CREATININE 1.19 MG/DL (0.50-1.00)
[2017-08-01 06:41] LABS: CALCIUM-PROTEIN CORRECTED 7.8 MG/DL (8.5-10.1); TOTAL PROTEIN 6.3 GM/DL (6.4-8.2)
[2017-08-01] MEDS: diphenhydrAMINE HCL 50 MG CAP PO PRN (06:52)
[2017-08-01] MEDS: SODIUM CHLOR 0.9% 1000 ML INJ 1,000 ML IV SCH ×2 (06:57→19:00)
[2017-08-01] MEDS: ESTRADIOL 1 MG TAB PO SCH (08:13)
[2017-08-01] MEDS: guaiFENesin E.R. 600 MG TAB PO SCH ×2 (08:13→20:26)
[2017-08-01] MEDS: LINEZOLID 600 MG PREMIX 300 ML IV SCH ×2 (08:14→20:25)
[2017-08-01] MEDS: amLODIPine BESYLATE 5 MG TAB PO SCH (08:14)
[2017-08-01] MEDS: PANTOPRAZOLE SOD 40 MG DELAYED RELEASE TAB PO SCH (08:14)
[2017-08-01] MEDS: BUDESONIDE-FORMOTEROL 160/4.5 MCG INHALER INH SCH ×2 (08:14→20:27)
[2017-08-01] MEDS: DOCUSATE SODIUM 50 MG/SENNA 8.6 MG TAB PO SCH ×2 (08:14→20:27)
[2017-08-01] MEDS: SODIUM CHLORIDE 0.9% FLUSH 10 ML FLUSH IV FLUSH SCH ×2 (08:15→20:27)
[2017-08-01] MEDS: MEROPENEM INJ 1,000 MG in SODIUM CHLORIDE 0.9% INJ 100 ML IV SCH ×2 (10:29→21:38)
[2017-08-01] MEDS: POTASSIUM CHLOR 20 MEQ PREMIX 100 ML IV PRN ×2 (11:17→13:15)
--- NOTE | 2017-08-01 12:22 | HHI.PR ---
Subjective Remarks Patient is stable today on high flow nasal cannula. Discussed with son at bedside. He do not want to start MAC treatment at this time. Objective Vitals Vital Signs Date Time Temp Pulse Resp B/P (MAP) Pulse Ox O2 Delivery O2 Flow Rate FiO2 08/01/17 10:00 90 08/01/17 09:31 90 32 137/94 (108) 94 08/01/17 09:00 89 27 157/73 (101) 98 08/01/17 08:30 105 36 160/86 (110) 54 08/01/17 08:23 93 33 158/72 (100) 87 08/01/17 08:00 92 Nasal Cannula 25.00 60 08/01/17 08:00 98.0 89 26 173/81 (111) 94 08/01/17 08:00 91 08/01/17 07:56 97 High Flow Nasal Cannula 25.00 50 08/01/17 07:30 86 26 149/77 (101) 97 08/01/17 07:00 92 30 163/74 (103) 96 08/01/17 06:00 86 08/01/17 04:00 97.7 90 32 145/87 (106) 97 08/01/17 04:00 90 08/01/17 02:00 89 08/01/17 00:00 98.2 86 32 126/60 (82) 98 08/01/17 00:00 86 07/31/17 22:00 91 07/31/17 20:47 93 High Flow Nasal Cannula 25.00 60 07/31/17 20:00 94 07/31/17 20:00 97.9 94 30 132/63 (86) 100 07/31/17 19:00 100 Senior Qa Analyst 25.00 60 07/31/17 18:00 92 07/31/17 18:00 92 37 07/31/17 17:00 92 64 141/73 (95) 93 07/31/17 16:00 100 52 111/67 (82) 90 07/31/17 14:00 85 07/31/17 13:30 93 High Flow Nasal Cannula 20.00 60 07/31/17 13:01 86 I/O 07/31/17 07/31/17 07/31/17 08/01/17 08/01/17 08/01/17 07:00 15:00 23:00 07:00 15:00 23:00 Intake Total 1145 ml 3800 ml 1580 ml Output Total 500 ml 1700 ml Balance 645 ml 2100 ml 1580 ml Intake Oral 240 ml 1600 ml 480 ml IV Total 905 ml 2200 ml 1100 ml Output Urine Total 500 ml 1700 ml # Voids 3 # Bowel Movements 0 1 2 Result Diagram: 08/01/1744108/01/17441 Objective Remarks GENERAL: No acute distress. CARDIOVASCULAR: Normal rate and regular rhythm without murmurs, gallops, or rubs. RESPIRATORY: Diffuse rhonchi bilaterally. Air movement is fair. GASTROINTESTINAL: Abdomen soft, non-tender, non-distended. Normal active bowel sounds MUSCULOSKELETAL: Extremities without cyanosis, or edema. NEURO: Alert and oriented to self. Moves all ext x4 PSYCH: Calm A/P Problem List: (1) IPF (idiopathic pulmonary fibrosis) ICD Code: J84.112 - Idiopathic pulmonary fibrosis (2) HLD (hyperlipidemia) ICD Code: E78.5 - Hyperlipidemia, unspecified (3) Acute respiratory failure with hypoxia ICD Code: J96.01 - Acute respiratory failure with hypoxia Status: Acute (4) COPD exacerbation ICD Code: J44.1 - Chronic obstructive pulmonary disease with (acute) exacerbation Status: Acute Assessment and Plan COPD/IPF, advanced chronic resp insufficiency RLL PNA PSAE PNA recent on antibiotics per infectious disease Continue on Mucinex twice daily Continue on Solu-Medrol IV Continue Symbicort Pulmonology following. Duo nebs as needed and schedule Patient is stable today but at high risk for worsening respiratory status. Known pulmonary fibrosis and advanced COPD. poor prognosis. Palliative care following. Continue scheduled Ativan and IV Ativan as needed to help with agitation symptoms. 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 Infectious disease discussed with family. They want to hold off treatment for MAC for now. Hyperlipidemia continue on home medications Hypertension continue on home medications Depression anxiety resume home medication Renal insufficiency/dehydration -Follow renal functions GI prophylaxis with Protonix DVT prophylaxis with Lovenox Discussed with RN and patient and family Discharge Planning Continue care in the ICU. Lakeisha Caldwell MD Aug 01, 2017 12:22
--- NOTE | 2017-08-01 13:43 | OTSOAPIP ---
TIME SESSION COMPLETED: TREATMENT TIME: 15 MINS. CHART ELECTRONIC MEDICAL RECORD PER ELECTRONIC MEDICAL RECORD PATIENT REQUESTED COMFORT CARE, PATIENT'S SON KALLI SPOKE WITH PALLIATIVE CARE REGARDING HOSPICE. SON IS UNDECIDED AT THIS TIME. PATIENT FOUND AT BEDSIDE AND FEELS PATIENT DOES NOT NEED REHAB AT THIS TIME AND WILL REQUEST THERAPY ONCE HE FEELS SHE CAN PARTICIPATE. PATIENT SON FEELINGS WERE ACKNOWLEDGED. PLAN: OCCUPATIONAL THERAPY SIGNING OFF PRE PATIENTS SON REQUEST INTERDISCIPLINARY COMMUNICATION: NURSE MARIANO WAS PRESENT AND AWARE. : Therapist: CAROLYN MARTINEZ/Jayashree Signature on file
--- NOTE | 2017-08-01 17:11 | HHI.HCPN ---
Reason for visit a. To assist with evaluation and management of symptoms including: dyspnea, anxiety. b. To assist medical decision maker(s) with: better understanding of current medical conditions; weighing benefits/burdens of medical treatment options; making medical treatment decisions. . Subjective/Interval History Patient seen and examined in ICU. Son, Umberto at bedside. Dr. Marks also present upon my arrival. We are all in agreement to give the patient a few more days to continue efforts to wean oxygen. If unable to wean in the coming days Dr. Marks feels it is unlikely she will recover and at that time will consider transition to comfort with hospice support. Patient elected NO CODE (DNR/DNI) and family supports this decision. Does not want to consider treatment for MAC at this time, will consider if pulmonary status improves and patient is able to be DC from hospital. Patient reports feeling better on high flow oxygen. Vital signs and labs stable. Blood cultures negative to date. No new imaging. . Family/friend interactions See interval note. . Advance Directives Living Will: Copy in medical record Health Care Surrogate: Copy in medical record Advance Directive Specifics Date completed: April 26, 2017 . Health Care Surrogate(s): Patient is currently capacitated to make her own decisions, though has some mild confusion, would recommend shared decision making with [facility]CS. Designation of healthcare surrogate paperwork names her son Umberto Begum Junior as primary healthcare surrogate and her daughter Jackie Mckinney as alternate surrogate. . Significant change in goals: NO CODE (DNR/DNI). Continue aggressive care short of NO CODE for now. Will consider transition to comfort if unable to wean oxygen in the coming days. Does not want to consider treatment for MAC at this time, will consider if pulmonary status improves and patient is able to be DC from hospital. . Objective Vital Signs Date Time Temp Pulse Resp B/P (MAP) Pulse Ox O2 Delivery O2 Flow Rate FiO2 08/01/17 16:00 98.0 87 25 154/74 (100) 98 08/01/17 16:00 98 08/01/17 15:30 94 22 150/72 (98) 92 08/01/17 15:00 99 40 138/61 (86) 87 08/01/17 14:30 101 32 157/74 (101) 90 08/01/17 14:00 93 08/01/17 14:00 93 27 164/77 (106) 96 08/01/17 13:30 96 35 160/72 (101) 93 08/01/17 13:00 92 28 171/80 (110) 93 08/01/17 12:30 92 35 163/77 (105) 91 08/01/17 12:00 98.2 92 27 165/75 (105) 92 08/01/17 12:00 95 08/01/17 11:30 91 28 178/72 (107) 92 08/01/17 11:00 86 26 161/73 (102) 95 08/01/17 10:35 90 28 153/71 (98) 95 08/01/17 10:32 90 29 192/76 (114) 95 08/01/17 10:30 91 29 179/75 (109) 94 08/01/17 10:00 90 08/01/17 10:00 90 29 174/74 (107) 94 08/01/17 09:31 90 32 137/94 (108) 94 08/01/17 09:00 89 27 157/73 (101) 98 08/01/17 08:30 105 36 160/86 (110) 54 08/01/17 08:23 93 33 158/72 (100) 87 08/01/17 08:00 92 Nasal Cannula 25.00 60 08/01/17 08:00 98.0 89 26 173/81 (111) 94 08/01/17 08:00 91 08/01/17 07:56 97 High Flow Nasal Cannula 25.00 50 08/01/17 07:30 86 26 149/77 (101) 97 08/01/17 07:00 92 30 163/74 (103) 96 08/01/17 06:00 86 08/01/17 04:00 97.7 90 32 145/87 (106) 97 08/01/17 04:00 90 08/01/17 02:00 89 08/01/17 00:00 98.2 86 32 126/60 (82) 98 08/01/17 00:00 86 07/31/17 22:00 91 07/31/17 20:47 93 High Flow Nasal Cannula 25.00 60 07/31/17 20:00 94 07/31/17 20:00 97.9 94 30 132/63 (86) 100 07/31/17 19:00 100 Application Engineer 25.00 60 07/31/17 18:00 92 07/31/17 18:00 92 37 Intake & Output 08/01/17 08/01/17 06:59 18:59 Intake Total 3780 ml Balance 3780 ml Intake Oral 480 ml IV Total 3300 ml # Voids 3 # Bowel Movements 2 Physical Exam CONSTITUTIONAL/GENERAL: This is an elderly, thin patient. TUBES/LINES/DRAINS: High flow oxygen, PICC line, SCDs. SKIN: No jaundice, rashes, or lesions. Ecchymoses on upper extremities. No wounds seen anteriorly. Skin temperature appropriate. Not diaphoretic. EYES: Pupils equal and round and reactive. ENT: Hard of Hearing. Nose without bleeding or purulent drainage. Dry lips. CARDIOVASCULAR: Regular rate and rhythm without murmurs, gallops, or rubs. RESPIRATORY/CHEST: Scattered course breath sounds. Diminished bilaterally. GASTROINTESTINAL: Abdomen soft, non-tender, mildly distended. No guarding. Bowel sounds present. GENITOURINARY: Without palpable bladder distension. MUSCULOSKELETAL: Extremities without clubbing, cyanosis, or edema. NEUROLOGICAL: Awake and alert, eating bites of lunch. Answers questions, weak voice sometimes difficult to understand. Follows commands. Generalized weakness. PSYCHIATRIC: + anxiety, improving. . Diagnostic Tests Laboratory Laboratory Tests Test 07/30/17 10:41 07/30/17 14:45 07/30/17 14:50 07/31/17 03:47 White Blood Count 7.5 TH/MM3 (4.0-11.0) Red Blood Count 3.14 MIL/MM3 (4.00-5.30) Hemoglobin 9.6 GM/DL (11.6-15.3) Hematocrit 29.0 % (35.0-46.0) Mean Corpuscular Volume 92.5 FL (80.0-100.0) Mean Corpuscular Hemoglobin 30.5 PG (27.0-34.0) Mean Corpuscular Hemoglobin Concent 33.0 % (32.0-36.0) Red Cell Distribution Width 17.1 % (11.6-17.2) Platelet Count 239 TH/MM3 (150-450) Mean Platelet Volume 6.9 FL (7.0-11.0) Neutrophils (%) (Auto) 66.7 % (16.0-70.0) Lymphocytes (%) (Auto) 18.2 % (9.0-44.0) Monocytes (%) (Auto) 7.5 % (0.0-8.0) Eosinophils (%) (Auto) 6.9 % (0.0-4.0) Basophils (%) (Auto) 0.7 % (0.0-2.0) Neutrophils # (Auto) 5.0 TH/MM3 (1.8-7.7) Lymphocytes # (Auto) 1.4 TH/MM3 (1.0-4.8) Monocytes # (Auto) 0.6 TH/MM3 (0-0.9) Eosinophils # (Auto) 0.5 TH/MM3 (0-0.4) Basophils # (Auto) 0.1 TH/MM3 (0-0.2) CBC Comment DIFF FINAL Differential Comment Blood Urea Nitrogen 12 MG/DL (7-18) Creatinine 1.27 MG/DL (0.50-1.00) Random Glucose 74 MG/DL (74-106) Total Protein 6.6 GM/DL (6.4-8.2) Albumin 2.4 GM/DL (3.4-5.0) Calcium Level 7.7 MG/DL (8.5-10.1) Phosphorus Level 2.6 MG/DL (2.5-4.9) 2.2 MG/DL (2.5-4.9) Magnesium Level 1.8 MG/DL (1.5-2.5) Alkaline Phosphatase 117 U/L (45-117) Aspartate Amino Transf (AST/SGOT) 20 U/L (15-37) Alanine Aminotransferase (ALT/SGPT) 26 U/L (10-53) Total Bilirubin 0.4 MG/DL (0.2-1.0) Sodium Level 143 MEQ/L (136-145) Potassium Level 2.8 MEQ/L (3.5-5.1) 3.7 MEQ/L (3.5-5.1) Chloride Level 105 MEQ/L (98-107) Carbon Dioxide Level 27.9 MEQ/L (21.0-32.0) Anion Gap 10 MEQ/L (5-15) Estimat Glomerular Filtration Rate 40 ML/MIN (>89) Hemoglobin A1c 6.3 % (4.3-6.0) Free Thyroxine 0.90 NG/DL (0.76-1.46) Thyroid Stimulating Hormone 3rd Gen 0.840 uIU/ML (0.358-3.740) Blood Gas Puncture Site RT RADIAL Blood Gas Patient Temperature 98.6 Blood Gas HCO3 28 mmol/L (22-26) Blood Gas Base Excess 3.7 mmol/L (-2-2) Blood Gas Oxygen Saturation 95 % (90-100) Arterial Blood pH 7.42 (7.380-7.420) Arterial Blood Partial Pressure CO2 45 mmHg (38-42) Arterial Blood Partial Pressure O2 106 mmHg (61-120) Arterial Blood Oxygen Content 13.9 Vol % (12.0-20.0) Arterial Blood Carboxyhemoglobin 1.2 % (0-4) Arterial Blood Methemoglobin 1.3 % (0-2) Blood Gas Hemoglobin 10.3 G/DL (12.0-16.0) Oxygen Delivery Device BIPAP Blood Gas Ventilator Setting IPAP+12/ EPAP+6 Blood Gas Inspired Oxygen 40 % Test 08/01/17 04:42 White Blood Count 10.5 TH/MM3 (4.0-11.0) Red Blood Count 2.93 MIL/MM3 (4.00-5.30) Hemoglobin 9.0 GM/DL (11.6-15.3) Hematocrit 27.2 % (35.0-46.0) Mean Corpuscular Volume 92.7 FL (80.0-100.0) Mean Corpuscular Hemoglobin 30.7 PG (27.0-34.0) Mean Corpuscular Hemoglobin Concent 33.2 % (32.0-36.0) Red Cell Distribution Width 16.9 % (11.6-17.2) Platelet Count 269 TH/MM3 (150-450) Mean Platelet Volume 7.5 FL (7.0-11.0) Blood Urea Nitrogen 18 MG/DL (7-18) Creatinine 1.19 MG/DL (0.50-1.00) Random Glucose 104 MG/DL (74-106) Total Protein 6.3 GM/DL (6.4-8.2) Calcium Level 7.4 MG/DL (8.5-10.1) Sodium Level 144 MEQ/L (136-145) Potassium Level 3.4 MEQ/L (3.5-5.1) Chloride Level 109 MEQ/L (98-107) Carbon Dioxide Level 23.4 MEQ/L (21.0-32.0) Anion Gap 12 MEQ/L (5-15) Estimat Glomerular Filtration Rate 43 ML/MIN (>89) Protein Corrected Calcium 7.8 MG/DL (8.5-10.1) Result Diagram: 08/01/172 08/01/172 Microbiology Microbiology Date/Time Source Procedure Growth Status 07/30/17 14:45 Blood Peripheral Aerobic Blood Culture - Preliminary NO GROWTH IN 2 DAYS Resulted 07/30/17 14:45 Blood Peripheral Anaerobic Blood Culture - Preliminary NO GROWTH IN 2 DAYS Resulted 07/30/17 14:40 Blood Peripheral Aerobic Blood Culture - Preliminary NO GROWTH IN 2 DAYS Resulted 07/30/17 14:40 Blood Peripheral Anaerobic Blood Culture - Preliminary NO GROWTH IN 2 DAYS Resulted Imaging Last Impressions Chest X-Ray 07/30/17 0600 Signed Impressions: CONCLUSION: Mild interstitial prominence right greater than left. Gall Bladder Ultrasound 07/28/17 0000 Signed Impressions: CONCLUSION: Unremarkable sonographic appearance of the right upper quadrant Chest CT 07/27/17 0000 Signed Impressions: CONCLUSION: 1. Examination quality is degraded by respiratory motion artifact. There is ab normal interstitial lung disease bilaterally with features suggestive of idiopa thic pulmonary fibrosis or UIP. 2. There is a new small left pleural effusion. 3. Severe atherosclerotic disease and coronary artery calcification. Assessment and Plan Disease Oriented Problem List: (1) IPF (idiopathic pulmonary fibrosis) (2) RLL pneumonia (3) LOVE (acute kidney injury) (4) HLD (hyperlipidemia) (5) Acute respiratory failure with hypoxia (6) COPD exacerbation Symptom Scale: (1) Dyspnea 0-10 Scale: 4 (2) Anxiety 0-10 Scale: 2 Pertinent Non-Medical Issues Psychosocial: . Supported by her son, Umberto and daughter, Jackie. Spiritual: Unknown. Legal:Patient is currently capacitated to make her own decisions, though has some mild confusion, would recommend shared decision making with [facility]. Designation of healthcare surrogate paperwork names her son Umberto Begum Junior as primary healthcare surrogate and her daughter Jackie Mckinney as alternate surrogate. Ethical issues impacting care: No known concerns at this time. Peer Important Contacts * shon Munoz/[facility]: [phone] * Jackie Mckinney, daughter/alternate [facility]: [phone] Prognosis Patient is an 82-year-old female with multiple medical comorbidities including end-stage COPD pulmonary fibrosis/emphysema admitted with pneumonia, COPD exacerbation. Patient has had for acute care hospitalization since March 2017. She has had ongoing trajectory of functional and nutritional decline since that time, now dependent for her care. She is admitted to ICU on BiPAP/ high flow oxygen, now with MAC infection, unlikely she will be able to tolerate prolonged antibiotic course over 18 months. Does not appear to have a life expectancy that long. Hospice appropriate if goals are comfort oriented. . Code Status: No Code Plan * Patient is currently capacitated to make her own decisions, though has some mild confusion, would recommend shared decision making with [facility]. Designation of healthcare surrogate paperwork names her son Umberto Begum Junior as primary healthcare surrogate and her daughter Jackie Mckinney as alternate surrogate. * NO CODE (DNR/DNI). * Patient Goals, supported by her family: Continue aggressive care short of NO CODE (DNR/DNI) for now. Will consider transition to comfort if unable to wean oxygen in the coming days. Does not want to consider treatment for MAC at this time, will consider if pulmonary status improves and patient is able to be DC from hospital. * SYMPTOMS: Anxiety and dyspnea: Secondary to severe/end-stage COPD/pulmonary fibrosis. Scheduled lorazepam 0.5 mg every 8 hours added with verbalization of improvement. Has as needed Lorazepam also available every 2 hours as needed, sparing need since additional of ATC Lorazepam. Will monitor need and effect. Patient may also benefit from low-dose Roxanol for management of shortness of breath. * Palliative care will continue to follow throughout hospital course to assist with symptom management clarification of treatment goals. . Attestation To help prompt me to consider important information that might be impacting today's encounter and assessment, information from prior notes written by myself or my colleagues may have been "brought forward" into today's note. My signature on this note, however, is an attestation that I personally performed the exam, history, and/or decision-making noted today, and, unless otherwise indicated, the interactions with patient, family, and staff as well as the review of records all occurred today. I also attest that the listed assessment and stated plan reflect my best clinical judgment today based on the combination of historical information, prior notes, and today's exam/ interactions. When time spent is documented, it refers only to time spent today by the signer, or if indicated, combined time spent today by collaborating physician/nurse practitioner. Ramona Hilario Aug 01, 2017 17:11
[2017-08-01] MEDS: ENOXAPARIN SODIUM 30 MG/0.3 ML SYRINGE SQ SCH (20:26)
[2017-08-01] MEDS: MONTELUKAST SODIUM 10 MG TAB PO SCH (20:26)
[2017-08-01] MEDS: AZITHROMYCIN INJ 500 MG in SODIUM CHLOR 0.9% 250 ML INJ 250 ML IV SCH (20:26)
[2017-08-01] MEDS: LABETALOL HCL 100 MG/20 ML VIAL IV PUSH PRN (20:30)
[2017-08-01] MEDS ORDERED: LABETALOL HCL 100 MG/20 ML VIAL IV PUSH PRN (20:30)
[2017-08-02] VITALS (27 sets, daily range): BP systolic 158–190; BP diastolic 74–85; PULSE 72–88; RESP 21–45; TEMP 98.5–99; O2SAT 78–96
[2017-08-02] MEDS: methylPREDNISolone SOD SUCC 125 MG/2 ML VIAL IV PUSH SCH ×3 (00:16→14:53)
[2017-08-02] MEDS: LABETALOL HCL 100 MG/20 ML VIAL IV PUSH PRN (03:02)
[2017-08-02 03:11] LABS: HEMATOCRIT 28.3 % (35.0-46.0); HEMOGLOBIN 9.4 GM/DL (11.6-15.3); MEAN CELL VOLUME 92.7 FL (80.0-100.0); MEAN CORPUSCULAR HEMOGLOBIN 30.7 PG (27.0-34.0); MEAN CORPUSCULAR HGB CONC 33.1 % (32.0-36.0); MEAN PLATELET VOLUME 7.3 FL (7.0-11.0); PLATELET COUNT 297 TH/MM3 (150-450); RED BLOOD COUNT 3.06 MIL/MM3 (4.00-5.30); RED CELL DISTRIBUTION WIDTH 16.9 % (11.6-17.2); WHITE BLOOD COUNT 10.6 TH/MM3 (4.0-11.0)
[2017-08-02] MEDS: SODIUM CHLOR 0.9% 1000 ML INJ 1,000 ML IV SCH ×2 (03:11→14:00)
[2017-08-02] MEDS: RESP: ALBUTEROL 2.5 MG/IPRATROPIUM 0.5 MG NEB (SCH) NEB ×4 (03:15→20:06)
[2017-08-02 03:44] LABS: CALCIUM 7.2 MG/DL (8.5-10.1); CREATININE 0.93 MG/DL (0.50-1.00)
[2017-08-02 03:55] LABS: CALCIUM-PROTEIN CORRECTED 7.7 MG/DL (8.5-10.1); TOTAL PROTEIN 6.2 GM/DL (6.4-8.2)
[2017-08-02] MEDS: LORazepam 0.5 MG TAB PO SCH ×3 (05:22→21:22)
[2017-08-02] MEDS: DOCUSATE SODIUM 50 MG/SENNA 8.6 MG TAB PO SCH ×2 (08:16→21:00)
[2017-08-02] MEDS: ESTRADIOL 1 MG TAB PO SCH (08:16)
[2017-08-02] MEDS: amLODIPine BESYLATE 5 MG TAB PO SCH (08:16)
[2017-08-02] MEDS: LINEZOLID 600 MG PREMIX 300 ML IV SCH ×2 (08:16→21:21)
[2017-08-02] MEDS: PANTOPRAZOLE SOD 40 MG DELAYED RELEASE TAB PO SCH (08:16)
[2017-08-02] MEDS: guaiFENesin E.R. 600 MG TAB PO SCH ×2 (08:16→21:22)
[2017-08-02] MEDS: SODIUM CHLORIDE 0.9% FLUSH 10 ML FLUSH IV FLUSH SCH ×2 (08:17→21:21)
[2017-08-02] MEDS: BUDESONIDE-FORMOTEROL 160/4.5 MCG INHALER INH SCH ×2 (08:18→21:00)
[2017-08-02] MEDS: EUCERIN CREAM 120 GM JAR TOPICAL PRN (08:18)
[2017-08-02] MEDS: MEROPENEM INJ 1,000 MG in SODIUM CHLORIDE 0.9% INJ 100 ML IV SCH ×2 (10:00→23:25)
--- NOTE | 2017-08-02 14:15 | HHI.HCPN ---
Palliative care continues to follow Mrs. Begum. Mrs. Galvan appears comfortable in room, continues on high-flow oxygen. Supportive visit with patient's son, Umberto in [facility] per his request. Umberto states he and patient just met with Dr. Marks and were provided an update. He is very appreciative of the time spent by Dr. Marks with patient. Son verbalizes desired plan to give Mrs. Begum another 24hrs. In conversation with him he appears realistic about patient's medical condition and prognosis however he states he does not feel his mother has an understanding of her prognosis. He verbalizes his mother feels like she is going to make it through this stating "she is feeling more like she will be able to leave the hospital and drive her car again rather than she's dying". Offered emotional support. Umberto requests medical follow-up with palliative care tomorrow, 08/03 around 330pm. He requests prognosis be communicated with patient and allow time for her to process before a decision is made. Answered his questions and concerns to the best of my ability. Palliative care to continue to follow throughout hospitalization. Sera Corrigan, [employer]CH[employer] Aug 02, 2017 14:15
[2017-08-02] MEDS: LORazepam 2 MG/ML VIAL IV PUSH PRN (15:29)
--- NOTE | 2017-08-02 16:04 | HHI.PR ---
Subjective Remarks Patient as desaturated just a few minutes ago when the nurse tried to move her in bed, I ordered stat ABG which came back suspicious for venous blood I repeated blood drawn and it was within fairly normal limits, patient denied talking, she is currently resting fairly comfortable in bed "I cannot catch my breath" Objective Vitals Vital Signs Date Time Temp Pulse Resp B/P (MAP) Pulse Ox O2 Delivery O2 Flow Rate FiO2 08/02/17 14:30 83 08/02/17 14:30 83 25 169/79 (109) 90 08/02/17 14:00 84 08/02/17 14:00 84 29 173/79 (110) 87 08/02/17 13:30 81 08/02/17 13:30 81 22 176/81 (112) 95 08/02/17 13:00 81 21 183/81 (115) 91 08/02/17 13:00 81 08/02/17 12:30 80 30 180/81 (114) 92 08/02/17 12:30 80 08/02/17 12:00 79 22 177/84 (115) 94 08/02/17 12:00 79 08/02/17 11:30 80 29 172/82 (112) 87 08/02/17 11:30 80 08/02/17 11:04 83 32 158/75 (102) 78 08/02/17 11:04 83 08/02/17 10:30 76 08/02/17 10:30 76 24 178/81 (113) 94 08/02/17 10:00 76 08/02/17 10:00 76 24 184/84 (117) 96 08/02/17 09:30 75 23 184/84 (117) 95 08/02/17 09:30 75 08/02/17 09:00 76 08/02/17 09:00 76 26 163/77 (105) 91 08/02/17 08:30 76 08/02/17 08:30 76 34 185/83 (117) 92 08/02/17 08:00 75 08/02/17 08:00 75 26 190/85 (120) 96 08/02/17 07:39 94 High Flow Nasal Cannula 25.00 50 08/02/17 07:00 92 Fender Finisher 25.00 60 08/02/17 06:00 73 08/02/17 04:00 72 08/02/17 04:00 99.0 72 24 162/77 (105) 95 08/02/17 02:00 77 08/02/17 00:00 74 08/02/17 00:00 98.5 74 25 158/74 (102) 93 08/01/17 22:00 80 08/01/17 21:33 92 High Flow Nasal Cannula 25.00 50 08/01/17 20:00 91 08/01/17 20:00 98.3 91 25 194/87 (122) 97 08/01/17 19:00 91 Nasal Cannula 25.00 60 08/01/17 18:00 88 I/O 08/01/17 08/01/17 08/01/17 08/02/17 08/02/17 08/02/17 07:00 15:00 23:00 07:00 15:00 23:00 Intake Total 1580 ml 200 ml 2435 ml 1300 ml Output Total 350 ml 550 ml Balance 1580 ml 200 ml 2085 ml 750 ml Intake Oral 480 ml 300 ml 300 ml IV Total 1100 ml 200 ml 2135 ml 1000 ml Output Urine Total 350 ml 550 ml # Voids 3 # Bowel Movements 2 1 1 Result Diagram: 08/02/1722808/02/17228 Objective Remarks GENERAL: Ill appearing 82 years old female well-developed patient, in no apparent distress. CARDIOVASCULAR: RRR, no gallops, or rubs. RESPIRATORY: Bilateral crackles GASTROINTESTINAL: Abdomen soft, non-tender, nondistended. Positive bowel sounds MUSCULOSKELETAL: Extremities without clubbing, cyanosis, or edema. Pedal pulses appreciated NEUROLOGICAL: Awake and alert. Moves all extremity. Normal speech.no focal neurological deficit A/P Problem List: (1) IPF (idiopathic pulmonary fibrosis) ICD Code: J84.112 - Idiopathic pulmonary fibrosis (2) HLD (hyperlipidemia) ICD Code: E78.5 - Hyperlipidemia, unspecified (3) Acute respiratory failure with hypoxia ICD Code: J96.01 - Acute respiratory failure with hypoxia Status: Acute (4) COPD exacerbation ICD Code: J44.1 - Chronic obstructive pulmonary disease with (acute) exacerbation Status: Acute Assessment and Plan 08/02 patient is being desaturating today first ABG showed what it looks like venous blood drawn, I repeated the ABG and it came back within fairly normal limits, continue on antibiotic will monitor closely I discussed with the nurse, D/W ID A/P: COPD/IPF, advanced chronic resp insufficiency RLL PNA PSAE PNA recent on antibiotics per infectious disease Continue on Mucinex twice daily, Solu-Medrol IV, Symbicort Pulmonology ff. Duo nebs as needed and schedule high risk for worsening respiratory status. Known pulmonary fibrosis and advanced COPD. poor prognosis. Palliative care following. Continue scheduled Ativan and IV Ativan as needed to help with agitation symptoms. 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 Infectious disease discussed with family. They want to hold off treatment for MAC for now. Hyperlipidemia continue on home medications Hypertension continue on home medications Depression anxiety resume home medication Renal insufficiency/dehydration -Follow renal functions GI prophylaxis with Protonix DVT prophylaxis with Lovenox Discussed with RN and patient and family Nabeel Ugarte MD Aug 02, 2017 16:04
--- NOTE | 2017-08-02 17:14 | HHI.IDPN ---
Subjective Subjective Remarks On high flow Or Not expectorating palliative got involv ed attempted to talk to Dr De Leon - [place] clx form [facility] hospital with tressa HUSAIN and MADELAINE ([place]), sensitivities not availbale Antibiotics meropenem zyvox azithro Allergies: Coded Allergies: codeine (Unverified Allergy, Intermediate, HIVES, 07/26/17) phenobarbital (Unverified Allergy, Unknown, 07/26/17) Objective . Vital Signs Date Time Temp Pulse Resp B/P (MAP) Pulse Ox O2 Delivery O2 Flow Rate FiO2 08/02/17 14:30 83 08/02/17 14:30 83 25 169/79 (109) 90 08/02/17 14:00 84 08/02/17 14:00 84 29 173/79 (110) 87 08/02/17 13:30 81 08/02/17 13:30 81 22 176/81 (112) 95 08/02/17 13:00 81 21 183/81 (115) 91 08/02/17 13:00 81 08/02/17 12:30 80 30 180/81 (114) 92 08/02/17 12:30 80 08/02/17 12:00 79 22 177/84 (115) 94 08/02/17 12:00 79 08/02/17 11:30 80 29 172/82 (112) 87 08/02/17 11:30 80 08/02/17 11:04 83 32 158/75 (102) 78 08/02/17 11:04 83 08/02/17 10:30 76 08/02/17 10:30 76 24 178/81 (113) 94 08/02/17 10:00 76 08/02/17 10:00 76 24 184/84 (117) 96 08/02/17 09:30 75 23 184/84 (117) 95 08/02/17 09:30 75 08/02/17 09:00 76 08/02/17 09:00 76 26 163/77 (105) 91 08/02/17 08:30 76 08/02/17 08:30 76 34 185/83 (117) 92 08/02/17 08:00 75 08/02/17 08:00 75 26 190/85 (120) 96 08/02/17 07:39 94 High Flow Nasal Cannula 25.00 50 08/02/17 07:00 92 Ammonia Refrigeration Worker 25.00 60 08/02/17 06:00 73 08/02/17 04:00 72 08/02/17 04:00 99.0 72 24 162/77 (105) 95 08/02/17 02:00 77 08/02/17 00:00 74 08/02/17 00:00 98.5 74 25 158/74 (102) 93 08/01/17 22:00 80 08/01/17 21:33 92 High Flow Nasal Cannula 25.00 50 08/01/17 20:00 91 08/01/17 20:00 98.3 91 25 194/87 (122) 97 08/01/17 19:00 91 Nasal Cannula 25.00 60 08/01/17 18:00 88 . Laboratory Tests Test 08/01/17 04:42 08/02/17 02:29 White Blood Count 10.5 TH/MM3 10.6 TH/MM3 Red Blood Count 2.93 MIL/MM3 3.06 MIL/MM3 Hemoglobin 9.0 GM/DL 9.4 GM/DL Hematocrit 27.2 % 28.3 % Mean Corpuscular Volume 92.7 FL 92.7 FL Mean Corpuscular Hemoglobin 30.7 PG 30.7 PG Mean Corpuscular Hemoglobin Concent 33.2 % 33.1 % Red Cell Distribution Width 16.9 % 16.9 % Platelet Count 269 TH/MM3 297 TH/MM3 Mean Platelet Volume 7.5 FL 7.3 FL Laboratory Tests Test 08/01/17 04:42 08/02/17 02:29 Blood Urea Nitrogen 18 MG/DL 16 MG/DL Creatinine 1.19 MG/DL 0.93 MG/DL Random Glucose 104 MG/DL 105 MG/DL Total Protein 6.3 GM/DL 6.2 GM/DL Calcium Level 7.4 MG/DL 7.2 MG/DL Sodium Level 144 MEQ/L 142 MEQ/L Potassium Level 3.4 MEQ/L 3.8 MEQ/L Chloride Level 109 MEQ/L 109 MEQ/L Carbon Dioxide Level 23.4 MEQ/L 23.0 MEQ/L Anion Gap 12 MEQ/L 10 MEQ/L Estimat Glomerular Filtration Rate 43 ML/MIN 58 ML/MIN Protein Corrected Calcium 7.8 MG/DL 7.7 MG/DL Imaging Last Impressions Chest X-Ray 07/30/17 0600 Signed Impressions: CONCLUSION: Mild interstitial prominence right greater than left. Gall Bladder Ultrasound 07/28/17 0000 Signed Impressions: CONCLUSION: Unremarkable sonographic appearance of the right upper quadrant Chest CT 07/27/17 0000 Signed Impressions: CONCLUSION: 1. Examination quality is degraded by respiratory motion artifact. There is ab normal interstitial lung disease bilaterally with features suggestive of idiopa thic pulmonary fibrosis or UIP. 2. There is a new small left pleural effusion. 3. Severe atherosclerotic disease and coronary artery calcification. Physical Exam CONSTITUTIONAL/GENERAL: This is an adequately nourished patient, in no apparent distress. on high flow O2 TUBES/LINES/DRAINS: SKIN: No jaundice, rashes, or lesions. Skin temperature appropriate. Not diaphoretic. SKIN is dry with extensive solar elastosis lesion and excoriations. NO rash CARDIOVASCULAR: Regular rate and rhythm without murmurs, gallops, or rubs. No JVD. Peripheral pulses symmetric. RESPIRATORY/CHEST: Symmetric, unlabored respirations.B/l fine crackles to auscultation. Breath sounds equal bilaterally. GASTROINTESTINAL: Abdomen soft, non-tender, moderately distended. No hepato- splenomegaly, or palpable masses. No guarding. Bowel sounds present. MUSCULOSKELETAL: Extremities without clubbing, cyanosis, or edema. NEUROLOGICAL: more awake, opens eyes and makes eye contact Assessment & Plan Remarks COPD/IPF, advanced chronic resp insufficiency RLL PNA Prominent hypoxia on ABG Also a non tuberculous mycobacterial pulmonary infection tx was discussed with pt's son in presence of palliative care team: he wants time to make decision if to start MAC tx PSAE PNA recent Respiratory failure, improved prognosis is poor 2/2 underlying advanced pulmonary pathology family dows not want [place] tx at this point sputum clx if feasible cont meropenem, zyvox cont azithromycin dariel vieira RN dw son @ b/s Adelia Jaramillo MD Aug 02, 2017 17:14
[2017-08-02] MEDS: ENOXAPARIN SODIUM 30 MG/0.3 ML SYRINGE SQ SCH (20:28)
[2017-08-02] MEDS: AZITHROMYCIN INJ 500 MG in SODIUM CHLOR 0.9% 250 ML INJ 250 ML IV SCH (20:28)
[2017-08-02] MEDS: MONTELUKAST SODIUM 10 MG TAB PO SCH (21:22)
[2017-08-03] VITALS (21 sets, daily range): BP systolic 155–198; BP diastolic 71–91; PULSE 83–98; RESP 24–37; TEMP 98.4–98.7; O2SAT 84–97
[2017-08-03] MEDS: methylPREDNISolone SOD SUCC 125 MG/2 ML VIAL IV PUSH SCH ×3 (00:41→20:44)
[2017-08-03] MEDS: SODIUM CHLOR 0.9% 1000 ML INJ 1,000 ML IV SCH ×2 (00:41→10:15)
[2017-08-03] MEDS: RESP: ALBUTEROL 2.5 MG/IPRATROPIUM 0.5 MG NEB (SCH) NEB ×2 (04:09→07:26)
[2017-08-03] MEDS: LORazepam 0.5 MG TAB PO SCH ×3 (06:03→21:58)
[2017-08-03] MEDS: amLODIPine BESYLATE 5 MG TAB PO SCH (07:34)
[2017-08-03] MEDS: BUDESONIDE-FORMOTEROL 160/4.5 MCG INHALER INH SCH (07:34)
[2017-08-03] MEDS: ESTRADIOL 1 MG TAB PO SCH (07:35)
[2017-08-03] MEDS: guaiFENesin E.R. 600 MG TAB PO SCH ×2 (07:35→20:17)
[2017-08-03] MEDS: LINEZOLID 600 MG PREMIX 300 ML IV SCH ×2 (07:35→20:17)
[2017-08-03] MEDS: PANTOPRAZOLE SOD 40 MG DELAYED RELEASE TAB PO SCH (07:35)
[2017-08-03] MEDS: SODIUM CHLORIDE 0.9% FLUSH 10 ML FLUSH IV FLUSH SCH ×2 (07:37→20:16)
[2017-08-03] MEDS: DOCUSATE SODIUM 50 MG/SENNA 8.6 MG TAB PO SCH ×2 (07:37→20:17)
[2017-08-03] MEDS: MEROPENEM INJ 1,000 MG in SODIUM CHLORIDE 0.9% INJ 100 ML IV SCH ×2 (10:15→21:58)
[2017-08-03] MEDS ORDERED: cloNIDine HCL 0.1 MG TAB PO PRN (11:00)
--- NOTE | 2017-08-03 11:14 | HHI.PR ---
Subjective Remarks Patient resting in bed with closed eyes open to verbal stimuli Son at the bedside I discussed with him in length as well as the nurse No new decision has been made the son told me he is waiting to talk today with Dr. Marks the central office equipment engineer as well as the palliative care and possibly hospice No fever patient denied chest pain she said she is breathing comfortably on high flow oxygen, Blood pressure is still uncontrolled I increase her amlodipine and added clonidine as needed for further blood pressure control Objective Vitals Vital Signs Date Time Temp Pulse Resp B/P (MAP) Pulse Ox O2 Delivery O2 Flow Rate FiO2 08/03/17 07:27 94 High Flow Nasal Cannula 25.00 50 08/03/17 07:00 Baker Second 25.00 50 08/03/17 06:00 94 30 198/88 (124) 89 08/03/17 06:00 94 08/03/17 05:00 86 29 186/85 (118) 95 08/03/17 05:00 86 08/03/17 04:00 98.4 84 24 184/84 (117) 96 08/03/17 04:00 84 08/03/17 03:00 84 08/03/17 03:00 84 26 160/74 (102) 91 08/03/17 02:00 83 08/03/17 02:00 83 24 155/71 (99) 95 08/03/17 00:00 98.7 88 29 171/77 (108) 90 08/03/17 00:00 88 08/02/17 23:00 88 08/02/17 23:00 88 45 168/74 (105) 90 08/02/17 22:00 86 28 161/76 (104) 92 08/02/17 22:00 86 08/02/17 21:00 86 27 176/78 (110) 92 08/02/17 21:00 86 08/02/17 20:07 95 High Flow Nasal Cannula 50.00 25 08/02/17 20:00 98.6 86 26 171/78 (109) 94 08/02/17 20:00 86 08/02/17 19:00 94 Baker Second 25.00 50 08/02/17 18:00 84 08/02/17 17:30 83 08/02/17 17:30 83 28 184/81 (115) 94 08/02/17 17:00 80 08/02/17 17:00 80 25 168/77 (107) 95 08/02/17 14:30 83 08/02/17 14:30 83 25 169/79 (109) 90 08/02/17 14:00 84 08/02/17 14:00 84 29 173/79 (110) 87 08/02/17 13:30 81 08/02/17 13:30 81 22 176/81 (112) 95 08/02/17 13:00 81 21 183/81 (115) 91 08/02/17 13:00 81 08/02/17 12:30 80 30 180/81 (114) 92 08/02/17 12:30 80 08/02/17 12:00 79 22 177/84 (115) 94 08/02/17 12:00 79 08/02/17 11:30 80 29 172/82 (112) 87 08/02/17 11:30 80 I/O 08/02/17 08/02/17 08/02/17 08/03/17 08/03/17 08/03/17 07:00 15:00 23:00 07:00 15:00 23:00 Intake Total 1300 ml 870 ml 1050 ml Output Total 550 ml 1500 ml 950 ml Balance 750 ml -630 ml 100 ml Intake Oral 300 ml 320 ml 50 ml IV Total 1000 ml 550 ml 1000 ml Output Urine Total 550 ml 1500 ml 950 ml # Voids 5 3 # Bowel Movements 1 5 2 Result Diagram: 08/02/1722808/02/17228 Objective Remarks GENERAL: Ill appearing 82 years old female well-developed patient, in no apparent distress. CARDIOVASCULAR: RRR, no gallops, or rubs. RESPIRATORY: Bilateral crackles GASTROINTESTINAL: Abdomen soft, non-tender, nondistended. Positive bowel sounds MUSCULOSKELETAL: Extremities without clubbing, cyanosis, or edema. Pedal pulses appreciated NEUROLOGICAL: Awake and alert. Moves all extremity. Normal speech.no focal neurological deficit A/P Problem List: (1) IPF (idiopathic pulmonary fibrosis) ICD Code: J84.112 - Idiopathic pulmonary fibrosis (2) HLD (hyperlipidemia) ICD Code: E78.5 - Hyperlipidemia, unspecified (3) Acute respiratory failure with hypoxia ICD Code: J96.01 - Acute respiratory failure with hypoxia Status: Acute (4) COPD exacerbation ICD Code: J44.1 - Chronic obstructive pulmonary disease with (acute) exacerbation Status: Acute Assessment and Plan 08/02 patient is being desaturating today first ABG showed what it looks like venous blood drawn, I repeated the ABG and it came back within fairly normal limits, continue on antibiotic will monitor closely I discussed with the nurse, D/W ID 08/03: No acute issue currently stable breathing comfortably on high flow oxygen, Blood pressure is still uncontrolled I increase her amlodipine and added clonidine as needed for further blood pressure control Discussed with the son no decision has been made yet is awaiting to talk to the central office equipment engineer and palliative care A/P: COPD/IPF, advanced chronic resp insufficiency RLL PNA PSAE PNA recent on antibiotics per infectious disease Continue on Mucinex twice daily, Solu-Medrol IV, Symbicort Pulmonology ff. Duo nebs as needed and schedule high risk for worsening respiratory status. Known pulmonary fibrosis and advanced COPD. poor prognosis. Palliative care following. Continue scheduled Ativan and IV Ativan as needed to help with agitation symptoms. 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 Infectious disease discussed with family. They want to hold off treatment for MAC for now. Hyperlipidemia continue on home medications Hypertension continue on home medications Depression anxiety resume home medication Renal insufficiency/dehydration -Follow renal functions GI prophylaxis with Protonix DVT prophylaxis with Lovenox Discussed with RN and patient and family Nabeel Ugarte MD Aug 03, 2017 11:14
[2017-08-03] MEDS ORDERED: amLODIPine BESYLATE 5 MG TAB PO ONE (11:15)
[2017-08-03] MEDS: RESP: ALBUTEROL 2.5 MG/IPRATROPIUM 0.5 MG NEB (SCH) INH ×2 (13:19→19:20)
[2017-08-03] MEDS: NYSTATIN 100,000 U/GM PWD 15 GM BTL TOPICAL SCH ×2 (15:00→21:58)
[2017-08-03] MEDS ORDERED: PADIMATE (CHAPSTICK) 4.5 GM TUBE TOPICAL PRN (15:00)
[2017-08-03 15:09] LABS: BICARBONATE 28.5 MEQ/L (21.0-32.0); CALCIUM 7.7 MG/DL (8.5-10.1); CREATININE 0.83 MG/DL (0.50-1.00)
[2017-08-03] MEDS: POTASSIUM CHLOR 20 MEQ PREMIX 100 ML IV PRN ×4 (15:21→21:30)
--- NOTE | 2017-08-03 18:26 | HHI.HCPN ---
Reason for visit a. To assist with evaluation and management of symptoms including: dyspnea, anxiety. b. To assist medical decision maker(s) with: better understanding of current medical conditions; weighing benefits/burdens of medical treatment options; making medical treatment decisions. . Subjective/Interval History Patient seen and examined in ICU. SonUmberto and daughter in [place] phan at bedside. Patient is asleep upon my arrival. I met with family and conference room. Later visited patient, she awakens. She denies pain. Reports shortness of breath at rest today. She does not feel her breathing is getting any better. Spoke with nurse. Patient remains on high flow oxygen 25L/min, oxygen saturation today from 84%-91%. She has episodes of desaturation with repositioning. Hypertensive. Blood cultures negative to date. No new imaging. . Family/friend interactions Met with Umberto menendez and [place] LARIOS in consult room. Son reviewed conversation between patient and Dr. Marks this afternoon. It seems patient is understanding the serious nature of her lung disease and that it is not curable. Family indicates she is not yet ready to consider hospice today. Family is attempting to assist her in getting her affairs in order and attempting to get grandchildren her from out of state and country. Long conversation about prognosis of likely only weeks with continued aggressive care and likely hours to days if transferred to care center with transition off BiPAP to NRB mask. 6pm: Call from Umberto menendez to report patient is indicating she is won't be able to get her affairs in order tomorrow indicating she doesn't have that much time and asking her son to stay with her tonight. He does not want to make any changes to current medical care or plan. He only desires Lorazepam for comfort. Nurses have requested benzol operator visit. Offered support. Advance Directives Living Will: Copy in medical record Health Care Surrogate: Copy in medical record Advance Directive Specifics Date completed: April 26, 2017 . Health Care Surrogate(s): Patient is currently capacitated to make her own decisions, though has some mild confusion, would recommend shared decision making with [facility]. Designation of healthcare surrogate paperwork names her son Umberto Begum Junior as primary healthcare surrogate and her daughter Jackie Mckinney as alternate surrogate. . Significant change in goals: NO CODE. Desires continued aggressive care short of NO CODE for now. 6pm: Call from Umberto menendez to report patient is indicating she is won't be able to get her affairs in order tomorrow indicating she doesn't have that much time and asking her son to stay with her tonight. He does not want to make any changes to current medical care or plan. He only desires Lorazepam for comfort. Nurses have requested benzol operator visit. Declined hospice will reevaluate in AM if patient survives. . Objective Vital Signs Date Time Temp Pulse Resp B/P (MAP) Pulse Ox O2 Delivery O2 Flow Rate FiO2 08/03/17 16:00 91 08/03/17 14:00 96 30 91 08/03/17 14:00 96 08/03/17 13:09 93 08/03/17 13:09 93 33 173/79 (110) 91 08/03/17 12:00 93 26 95 08/03/17 12:00 93 08/03/17 10:00 98 31 87 08/03/17 10:00 98 08/03/17 08:32 94 08/03/17 08:32 94 28 181/81 (114) 84 08/03/17 08:25 93 08/03/17 08:25 93 28 195/91 (125) 90 08/03/17 08:00 87 26 97 08/03/17 08:00 87 08/03/17 07:27 94 High Flow Nasal Cannula 25.00 50 08/03/17 07:00 Barrel Charrer Helper 25.00 50 08/03/17 06:00 94 30 198/88 (124) 89 08/03/17 06:00 94 08/03/17 05:00 86 29 186/85 (118) 95 08/03/17 05:00 86 08/03/17 04:00 98.4 84 24 184/84 (117) 96 08/03/17 04:00 84 08/03/17 03:00 84 08/03/17 03:00 84 26 160/74 (102) 91 08/03/17 02:00 83 08/03/17 02:00 83 24 155/71 (99) 95 08/03/17 00:00 98.7 88 29 171/77 (108) 90 08/03/17 00:00 88 08/02/17 23:00 88 08/02/17 23:00 88 45 168/74 (105) 90 08/02/17 22:00 86 28 161/76 (104) 92 08/02/17 22:00 86 08/02/17 21:00 86 27 176/78 (110) 92 08/02/17 21:00 86 08/02/17 20:07 95 High Flow Nasal Cannula 50.00 25 08/02/17 20:00 98.6 86 26 171/78 (109) 94 08/02/17 20:00 86 08/02/17 19:00 94 Barrel Charrer Helper 25.00 50 08/02/17 18:00 84 08/02/17 17:30 83 08/02/17 17:30 83 28 184/81 (115) 94 Intake & Output 08/03/17 08/03/17 07:00 19:00 Intake Total 1600 ml Output Total 950 ml Balance 650 ml Intake Oral 50 ml IV Total 1550 ml Output Urine Total 950 ml # Voids 3 # Bowel Movements 2 Physical Exam CONSTITUTIONAL/GENERAL: This is an elderly, thin patient. TUBES/LINES/DRAINS: High flow oxygen, PICC line, SCDs. SKIN: No jaundice, rashes, or lesions. Ecchymoses on upper extremities. No wounds seen anteriorly. Skin temperature appropriate. Not diaphoretic. ENT: Hard of Hearing. Nose without bleeding or purulent drainage. Dry lips. CARDIOVASCULAR: Regular rate and rhythm without murmurs, gallops, or rubs. RESPIRATORY/CHEST: Scattered course breath sounds. Diminished bilaterally. Tachypneic. GASTROINTESTINAL: Abdomen soft, non-tender, mildly distended. No guarding. Bowel sounds present. GENITOURINARY: Without palpable bladder distension. MUSCULOSKELETAL: Extremities without clubbing, cyanosis, or edema. NEUROLOGICAL: Awakens, answers questions, weak voice sometimes difficult to understand. Follows commands. Generalized weakness. PSYCHIATRIC: + anxiety. . Diagnostic Tests Laboratory Laboratory Tests Test 08/01/17 04:42 08/02/17 02:29 08/02/17 11:22 08/02/17 12:00 White Blood Count 10.5 TH/MM3 (4.0-11.0) 10.6 TH/MM3 (4.0-11.0) Red Blood Count 2.93 MIL/MM3 (4.00-5.30) 3.06 MIL/MM3 (4.00-5.30) Hemoglobin 9.0 GM/DL (11.6-15.3) 9.4 GM/DL (11.6-15.3) Hematocrit 27.2 % (35.0-46.0) 28.3 % (35.0-46.0) Mean Corpuscular Volume 92.7 FL (80.0-100.0) 92.7 FL (80.0-100.0) Mean Corpuscular Hemoglobin 30.7 PG (27.0-34.0) 30.7 PG (27.0-34.0) Mean Corpuscular Hemoglobin Concent 33.2 % (32.0-36.0) 33.1 % (32.0-36.0) Red Cell Distribution Width 16.9 % (11.6-17.2) 16.9 % (11.6-17.2) Platelet Count 269 TH/MM3 (150-450) 297 TH/MM3 (150-450) Mean Platelet Volume 7.5 FL (7.0-11.0) 7.3 FL (7.0-11.0) Blood Urea Nitrogen 18 MG/DL (7-18) 16 MG/DL (7-18) Creatinine 1.19 MG/DL (0.50-1.00) 0.93 MG/DL (0.50-1.00) Random Glucose 104 MG/DL (74-106) 105 MG/DL (74-106) Total Protein 6.3 GM/DL (6.4-8.2) 6.2 GM/DL (6.4-8.2) Calcium Level 7.4 MG/DL (8.5-10.1) 7.2 MG/DL (8.5-10.1) Sodium Level 144 MEQ/L (136-145) 142 MEQ/L (136-145) Potassium Level 3.4 MEQ/L (3.5-5.1) 3.8 MEQ/L (3.5-5.1) Chloride Level 109 MEQ/L (98-107) 109 MEQ/L (98-107) Carbon Dioxide Level 23.4 MEQ/L (21.0-32.0) 23.0 MEQ/L (21.0-32.0) Anion Gap 12 MEQ/L (5-15) 10 MEQ/L (5-15) Estimat Glomerular Filtration Rate 43 ML/MIN (>89) 58 ML/MIN (>89) Protein Corrected Calcium 7.8 MG/DL (8.5-10.1) 7.7 MG/DL (8.5-10.1) Blood Gas Puncture Site LT FEMORAL RT RADIAL Blood Gas HCO3 10 mmol/L (22-26) 27 mmol/L (22-26) Blood Gas Base Excess -16.8 mmol/L (-2-2) 3.2 mmol/L (-2-2) Blood Gas Oxygen Saturation 98 % (90-100) 87 % (90-100) Arterial Blood pH 7.19 (7.380-7.420) 7.45 (7.380-7.420) Arterial Blood Partial Pressure CO2 27 mmHg (38-42) 39 mmHg (38-42) Arterial Blood Partial Pressure O2 392 mmHg (61-120) 59 mmHg (61-120) Arterial Blood Oxygen Content 11.3 Vol % (12.0-20.0) 11.6 Vol % (12.0-20.0) Arterial Blood Carboxyhemoglobin 0.3 % (0-4) 1.2 % (0-4) Arterial Blood Methemoglobin 1.3 % (0-2) 1.5 % (0-2) Blood Gas Hemoglobin 7.5 G/DL (12.0-16.0) 9.5 G/DL (12.0-16.0) Oxygen Delivery Device VENTILATOR HIGH FLOW GA Blood Gas Ventilator Setting Blood Gas Inspired Oxygen 100 % 50 % Blood Gas Patient Temperature 98.6 Blood Gas Liter Flow 25 L/M Test 08/03/17 14:37 Blood Urea Nitrogen 16 MG/DL (7-18) Creatinine 0.83 MG/DL (0.50-1.00) Random Glucose 124 MG/DL (74-106) Calcium Level 7.7 MG/DL (8.5-10.1) Sodium Level 138 MEQ/L (136-145) Potassium Level 2.7 MEQ/L (3.5-5.1) Chloride Level 99 MEQ/L (98-107) Carbon Dioxide Level 28.5 MEQ/L (21.0-32.0) Anion Gap 11 MEQ/L (5-15) Estimat Glomerular Filtration Rate 66 ML/MIN (>89) Result Diagram: 08/02/17 0229 08/03/17 1437 Microbiology Microbiology Date/Time Source Procedure Growth Status 07/30/17 14:45 Blood Peripheral Aerobic Blood Culture - Preliminary NO GROWTH IN 4 DAYS Resulted 07/30/17 14:45 Blood Peripheral Anaerobic Blood Culture - Preliminary NO GROWTH IN 4 DAYS Resulted . Imaging Last Impressions Chest X-Ray 07/30/17 0600 Signed Impressions: CONCLUSION: Mild interstitial prominence right greater than left. Gall Bladder Ultrasound 07/28/17 0000 Signed Impressions: CONCLUSION: Unremarkable sonographic appearance of the right upper quadrant Chest CT 07/27/17 0000 Signed Impressions: CONCLUSION: 1. Examination quality is degraded by respiratory motion artifact. There is ab normal interstitial lung disease bilaterally with features suggestive of idiopa thic pulmonary fibrosis or UIP. 2. There is a new small left pleural effusion. 3. Severe atherosclerotic disease and coronary artery calcification. Assessment and Plan Disease Oriented Problem List: (1) IPF (idiopathic pulmonary fibrosis) (2) RLL pneumonia (3) LOVE (acute kidney injury) (4) HLD (hyperlipidemia) (5) Acute respiratory failure with hypoxia (6) COPD exacerbation Symptom Scale: (1) Dyspnea 0-10 Scale: 4 (2) Anxiety 0-10 Scale: 4 Pertinent Non-Medical Issues Psychosocial: . Supported by her son, Umberto and daughter, Jackie. Spiritual: Unknown. Legal:Patient is currently capacitated to make her own decisions, though has some mild confusion, would recommend shared decision making with [facility]. Designation of healthcare surrogate paperwork names her son Umberto Begum Junior as primary healthcare surrogate and her daughter Jackie Mckinney as alternate surrogate. Ethical issues impacting care: No known concerns at this time. Peer Important Contacts * Umberto Begum son/[facility]: [phone] * Jackie Mckinney, daughter/alternate [facility]: [phone] Prognosis Patient is an 82-year-old female with multiple medical comorbidities including end-stage COPD pulmonary fibrosis/emphysema admitted with pneumonia, COPD exacerbation. Patient has had for acute care hospitalization since March 2017. She has had ongoing trajectory of functional and nutritional decline since that time, now dependent for her care. She is admitted to ICU on BiPAP/ high flow oxygen, now with MAC infection, unlikely she will be able to tolerate prolonged antibiotic course over 18 months. Does not appear to have a life expectancy that long. Hospice appropriate if goals are comfort oriented. . Code Status: No Code Plan * Patient is currently capacitated to make her own decisions, though has some mild confusion, would recommend shared decision making with [facility]. Designation of healthcare surrogate paperwork names her son Umberto Begum Junior as primary healthcare surrogate and her daughter Jackie Mckinney as alternate surrogate. * NO CODE (DNR/DNI). * Patient Goals: NO CODE. Desires continued aggressive care short of NO CODE for now. 6pm: Call from sonUmberto to report patient is indicating she is won' t be able to get her affairs in order tomorrow indicating she doesn't have that much time and asking her son to stay with her tonight. He does not want to make any changes to current medical care or plan. He only desires Lorazepam for comfort. Nurses have requested benzol operator visit. Declined hospice tonight, will reevaluate in AM if patient survives. * SYMPTOMS: Anxiety and dyspnea: Secondary to severe/end-stage COPD/pulmonary fibrosis. Scheduled lorazepam 0.5 mg every 8 hours added with verbalization of improvement. Has as needed Lorazepam also available every 2 hours as needed, sparing need since additional of ATC Lorazepam. Will monitor need and effect. Patient may also benefit from low-dose Roxanol for management of shortness of breath, son is not ready to consider additional medications. * Palliative care will continue to follow throughout hospital course to assist with symptom management clarification of treatment goals. . Attestation To help prompt me to consider important information that might be impacting today's encounter and assessment, information from prior notes written by myself or my colleagues may have been "brought forward" into today's note. My signature on this note, however, is an attestation that I personally performed the exam, history, and/or decision-making noted today, and, unless otherwise indicated, the interactions with patient, family, and staff as well as the review of records all occurred today. I also attest that the listed assessment and stated plan reflect my best clinical judgment today based on the combination of historical information, prior notes, and today's exam/ interactions. When time spent is documented, it refers only to time spent today by the signer, or if indicated, combined time spent today by collaborating physician/nurse practitioner. Ramona Hilario Aug 03, 2017 18:26
[2017-08-03] MEDS: ENOXAPARIN SODIUM 30 MG/0.3 ML SYRINGE SQ SCH (20:17)
[2017-08-03] MEDS: AZITHROMYCIN INJ 500 MG in SODIUM CHLOR 0.9% 250 ML INJ 250 ML IV SCH (20:43)
[2017-08-03] MEDS: MONTELUKAST SODIUM 10 MG TAB PO SCH (20:44)
[2017-08-03] MEDS: LORazepam 2 MG/ML VIAL IV PUSH PRN (23:58)
[2017-08-04] VITALS (23 sets, daily range): BP systolic 137–179; BP diastolic 63–90; PULSE 75–98; RESP 20–40; TEMP 97.6–98.9; O2SAT 86–99
[2017-08-04] MEDS: SODIUM CHLOR 0.9% 1000 ML INJ 1,000 ML IV SCH ×3 (02:29→14:50)
[2017-08-04] MEDS: NYSTATIN 100,000 U/GM PWD 15 GM BTL TOPICAL SCH ×3 (05:31→21:19)
[2017-08-04] MEDS: LORazepam 0.5 MG TAB PO SCH ×3 (05:31→21:18)
[2017-08-04 07:43] LABS: CALCIUM 7.8 MG/DL (8.5-10.1); CREATININE 0.76 MG/DL (0.50-1.00)
[2017-08-04 07:48] LABS: BICARBONATE 24.5 MEQ/L (21.0-32.0)
[2017-08-04] MEDS: BUDESONIDE-FORMOTEROL 160/4.5 MCG INHALER INH SCH ×3 (08:03→21:17)
[2017-08-04] MEDS: LINEZOLID 600 MG PREMIX 300 ML IV SCH ×2 (08:05→21:20)
[2017-08-04] MEDS: SODIUM CHLORIDE 0.9% FLUSH 10 ML FLUSH IV FLUSH SCH ×2 (08:07→21:17)
[2017-08-04] MEDS: DOCUSATE SODIUM 50 MG/SENNA 8.6 MG TAB PO SCH ×2 (08:07→21:00)
[2017-08-04] MEDS: methylPREDNISolone SOD SUCC 125 MG/2 ML VIAL IV PUSH SCH ×2 (08:07→21:18)
[2017-08-04] MEDS: PANTOPRAZOLE SOD 40 MG DELAYED RELEASE TAB PO SCH (08:07)
[2017-08-04] MEDS: ESTRADIOL 1 MG TAB PO SCH (08:07)
[2017-08-04] MEDS: guaiFENesin E.R. 600 MG TAB PO SCH ×2 (08:07→21:18)
[2017-08-04] MEDS: RESP: ALBUTEROL 2.5 MG/IPRATROPIUM 0.5 MG NEB (SCH) INH ×3 (08:15→19:27)
[2017-08-04] MEDS: LABETALOL HCL 100 MG/20 ML VIAL IV PUSH PRN (08:39)
[2017-08-04] MEDS: MEROPENEM INJ 1,000 MG in SODIUM CHLORIDE 0.9% INJ 100 ML IV SCH ×2 (10:08→22:39)
[2017-08-04] MEDS: POTASSIUM CHLOR 20 MEQ PREMIX 100 ML IV PRN ×2 (11:50→14:50)
--- NOTE | 2017-08-04 12:39 | HHI.HCPN ---
Reason for visit a. To assist with evaluation and management of symptoms including: dyspnea, anxiety. b. To assist medical decision maker(s) with: better understanding of current medical conditions; weighing benefits/burdens of medical treatment options; making medical treatment decisions. . Subjective/Interval History Patient seen and examined in ICU. SonUmberto at bedside. Patient is asleep upon my arrival, she does not arouse during my visit. Son reports she had some intermittent anxiety, SOB overnight. Spoke with nurse. Patient remains on high flow oxygen 45%. oxygen saturation today from 86%-96%. She has episodes of desaturation with repositioning. Intermittent hypertensive. Blood cultures negative to date. No new imaging. . Family/friend interactions 11am: Lengthy conversation with sonUmberto in room and in [place]. He verbalizes struggling with decision to "take away the oxygen." I explained his mother is dying. Provided Gone from my Sight and Signs and Symptoms of Approaching books. He is tearful. We again reviewed her decline. He verbalizes she has made her peace, met with paper pattern inspector and continues to tell family is ready. She is telling family good-bye and getting her affairs in order. Son wants to speak with Dr. Marks again. 2:20pm: Spoke with Dr. Marks he indicates he met with son Umberto and HARRIET Roger. He explained patient is dying from pulmonary disease not removal of oxygen. Daughter is driving back from [place] now, expected to arrive on . Family will likely transition to comfort measures with hospice support once daughter arrives. Notified Sridevi with hospice admissions to follow up with patient and family on 08/04/17. . Advance Directives Living Will: Copy in medical record Health Care Surrogate: Copy in medical record Advance Directive Specifics Date completed: April 26, 2017 . Health Care Surrogate(s): Patient is currently capacitated to make her own decisions, though has some mild confusion, would recommend shared decision making with [facility]. Designation of healthcare surrogate paperwork names her son Umberto Begum Junior as primary healthcare surrogate and her daughter Jackie Mckinney as alternate surrogate. . Significant change in goals: Considering transition to hospice after daughter arrives on 08/05/17. Objective Vital Signs Date Time Temp Pulse Resp B/P (MAP) Pulse Ox O2 Delivery O2 Flow Rate FiO2 08/04/17 10:30 82 26 156/74 (101) 92 08/04/17 10:30 82 08/04/17 10:00 80 27 169/79 (109) 96 08/04/17 10:00 80 08/04/17 09:30 75 08/04/17 09:30 75 25 159/74 (102) 96 08/04/17 09:00 75 23 150/70 (96) 98 08/04/17 09:00 75 08/04/17 08:42 78 08/04/17 08:42 78 22 137/63 (87) 98 08/04/17 08:30 95 27 168/75 (106) 94 08/04/17 08:30 95 08/04/17 08:16 93 High Flow Nasal Cannula 25.00 45 08/04/17 08:00 95 08/04/17 08:00 97.6 95 32 166/79 (108) 90 08/04/17 07:00 94 25.00 45 08/04/17 06:00 86 08/04/17 04:00 98.0 89 20 152/70 (97) 97 08/04/17 04:00 86 08/04/17 02:00 96 08/04/17 00:00 97.9 90 27 160/77 (104) 93 08/04/17 00:00 90 08/03/17 22:00 97 08/03/17 22:00 97 37 172/79 (110) 87 08/03/17 20:00 96 08/03/17 19:20 95 High Flow Nasal Cannula 25.00 40 08/03/17 19:00 92 Companion Caregiver 25.00 50 08/03/17 18:00 97 36 90 08/03/17 18:00 97 08/03/17 17:27 97 34 167/78 (107) 90 08/03/17 17:00 96 26 91 08/03/17 16:00 91 29 97 08/03/17 16:00 91 08/03/17 14:00 96 30 91 08/03/17 14:00 96 08/03/17 13:09 93 08/03/17 13:09 93 33 173/79 (110) 91 Intake & Output 18 08/04/17 07:00 19:00 Intake Total 1000 ml Balance 1000 ml Intake Oral 50 ml IV Total 950 ml # Voids 6 # Bowel Movements 1 Physical Exam CONSTITUTIONAL/GENERAL: This is an elderly, thin patient. TUBES/LINES/DRAINS: High flow oxygen, PICC line, SCDs. SKIN: Ecchymoses on upper extremities. No wounds seen anteriorly. Skin temperature appropriate. Not diaphoretic. ENT: Dry lips. CARDIOVASCULAR: Regular rate and rhythm without murmurs, gallops, or rubs. RESPIRATORY/CHEST: Scattered course breath sounds. Diminished bilaterally. GASTROINTESTINAL: Abdomen soft, non-tender, mildly distended. No guarding. Bowel sounds present. GENITOURINARY: Without palpable bladder distension. MUSCULOSKELETAL: Extremities without clubbing, cyanosis, or edema. NEUROLOGICAL: Asleep. PSYCHIATRIC: Asleep. . Diagnostic Tests Laboratory Laboratory Tests Test 08/02/17 02:29 08/02/17 11:22 08/02/17 12:00 08/03/17 14:37 White Blood Count 10.6 TH/MM3 (4.0-11.0) Red Blood Count 3.06 MIL/MM3 (4.00-5.30) Hemoglobin 9.4 GM/DL (11.6-15.3) Hematocrit 28.3 % (35.0-46.0) Mean Corpuscular Volume 92.7 FL (80.0-100.0) Mean Corpuscular Hemoglobin 30.7 PG (27.0-34.0) Mean Corpuscular Hemoglobin Concent 33.1 % (32.0-36.0) Red Cell Distribution Width 16.9 % (11.6-17.2) Platelet Count 297 TH/MM3 (150-450) Mean Platelet Volume 7.3 FL (7.0-11.0) Blood Urea Nitrogen 16 MG/DL (7-18) 16 MG/DL (7-18) Creatinine 0.93 MG/DL (0.50-1.00) 0.83 MG/DL (0.50-1.00) Random Glucose 105 MG/DL (74-106) 124 MG/DL (74-106) Total Protein 6.2 GM/DL (6.4-8.2) Calcium Level 7.2 MG/DL (8.5-10.1) 7.7 MG/DL (8.5-10.1) Sodium Level 142 MEQ/L (136-145) 138 MEQ/L (136-145) Potassium Level 3.8 MEQ/L (3.5-5.1) 2.7 MEQ/L (3.5-5.1) Chloride Level 109 MEQ/L (98-107) 99 MEQ/L (98-107) Carbon Dioxide Level 23.0 MEQ/L (21.0-32.0) 28.5 MEQ/L (21.0-32.0) Anion Gap 10 MEQ/L (5-15) 11 MEQ/L (5-15) Estimat Glomerular Filtration Rate 58 ML/MIN (>89) 66 ML/MIN (>89) Protein Corrected Calcium 7.7 MG/DL (8.5-10.1) Blood Gas Puncture Site LT FEMORAL RT RADIAL Blood Gas HCO3 10 mmol/L (22-26) 27 mmol/L (22-26) Blood Gas Base Excess -16.8 mmol/L (-2-2) 3.2 mmol/L (-2-2) Blood Gas Oxygen Saturation 98 % (90-100) 87 % (90-100) Arterial Blood pH 7.19 (7.380-7.420) 7.45 (7.380-7.420) Arterial Blood Partial Pressure CO2 27 mmHg (38-42) 39 mmHg (38-42) Arterial Blood Partial Pressure O2 392 mmHg (61-120) 59 mmHg (61-120) Arterial Blood Oxygen Content 11.3 Vol % (12.0-20.0) 11.6 Vol % (12.0-20.0) Arterial Blood Carboxyhemoglobin 0.3 % (0-4) 1.2 % (0-4) Arterial Blood Methemoglobin 1.3 % (0-2) 1.5 % (0-2) Blood Gas Hemoglobin 7.5 G/DL (12.0-16.0) 9.5 G/DL (12.0-16.0) Oxygen Delivery Device VENTILATOR HIGH FLOW KS Blood Gas Ventilator Setting Blood Gas Inspired Oxygen 100 % 50 % Blood Gas Patient Temperature 98.6 Blood Gas Liter Flow 25 L/M Test 08/04/17 06:02 Blood Urea Nitrogen 19 MG/DL (7-18) Creatinine 0.76 MG/DL (0.50-1.00) Random Glucose 146 MG/DL (74-106) Calcium Level 7.8 MG/DL (8.5-10.1) Sodium Level 139 MEQ/L (136-145) Potassium Level 3.3 MEQ/L (3.5-5.1) Chloride Level 99 MEQ/L (98-107) Carbon Dioxide Level 24.5 MEQ/L (21.0-32.0) Anion Gap 16 MEQ/L (5-15) Estimat Glomerular Filtration Rate 73 ML/MIN (>89) Result Diagram: 08/02/17 0229 08/04/17 0602 Microbiology Microbiology Date/Time Source Procedure Growth Status 07/30/17 14:45 Blood Peripheral Aerobic Blood Culture - Final NO GROWTH IN 5 DAYS Complete 07/30/17 14:45 Blood Peripheral Anaerobic Blood Culture - Final NO GROWTH IN 5 DAYS Complete Imaging Last Impressions Chest X-Ray 07/30/17 0600 Signed Impressions: CONCLUSION: Mild interstitial prominence right greater than left. Gall Bladder Ultrasound 07/28/17 0000 Signed Impressions: CONCLUSION: Unremarkable sonographic appearance of the right upper quadrant Chest CT 07/27/17 0000 Signed Impressions: CONCLUSION: 1. Examination quality is degraded by respiratory motion artifact. There is ab normal interstitial lung disease bilaterally with features suggestive of idiopa thic pulmonary fibrosis or UIP. 2. There is a new small left pleural effusion. 3. Severe atherosclerotic disease and coronary artery calcification. Assessment and Plan Disease Oriented Problem List: (1) IPF (idiopathic pulmonary fibrosis) (2) RLL pneumonia (3) LOVE (acute kidney injury) (4) HLD (hyperlipidemia) (5) Acute respiratory failure with hypoxia (6) COPD exacerbation Symptom Scale: (1) Dyspnea 0-10 Scale: 4 (2) Anxiety 0-10 Scale: 4 Pertinent Non-Medical Issues Psychosocial: . Supported by her son, Umberto and daughter, Jackie. Spiritual: Unknown. Legal:Patient is currently capacitated to make her own decisions, though has some mild confusion, would recommend shared decision making with [facility]. Designation of healthcare surrogate paperwork names her son Umberto Begum Junior as primary healthcare surrogate and her daughter Jackie Mckinney as alternate surrogate. Ethical issues impacting care: No known concerns at this time. Peer Important Contacts * shon Munoz/[facility]: [phone] * Jackie Mckinney, daughter/alternate [facility]: [phone] Prognosis Patient is an 82-year-old female with multiple medical comorbidities including end-stage COPD pulmonary fibrosis/emphysema admitted with pneumonia, COPD exacerbation. Patient has had for acute care hospitalization since March 2017. She has had ongoing trajectory of functional and nutritional decline since that time, now dependent for her care. She is admitted to ICU on BiPAP/ high flow oxygen, now with MAC infection, unlikely she will be able to tolerate prolonged antibiotic course over 18 months. Does not appear to have a life expectancy that long. Hospice appropriate if goals are comfort oriented. . Code Status: No Code Plan * Patient is currently capacitated to make her own decisions, though has some mild confusion, would recommend shared decision making with [facility]. Designation of healthcare surrogate paperwork names her son Umberto Begum Junior as primary healthcare surrogate and her daughter Jackie Mckinney as alternate surrogate. * NO CODE (DNR/DNI). * Patient Goals: NO CODE. Desires continued aggressive care short of NO CODE for now. Son, Umberto at bedside. Daughter is driving back from [place] now, expected to arrive on 08/05/17. Family will likely transition to comfort measures with hospice support once daughter arrives. Notified Sridevi with hospice admissions to follow up with patient and family on 08/04/17. * SYMPTOMS: Anxiety and dyspnea: Secondary to severe/end-stage COPD/pulmonary fibrosis. Scheduled lorazepam 0.5 mg every 8 hours added with verbalization of improvement. Has as needed Lorazepam also available every 2 hours as needed, sparing need since additional of ATC Lorazepam. Will monitor need and effect. Patient may also benefit from low-dose Roxanol for management of shortness of breath, son is not ready to consider additional medications. * Palliative care will continue to follow throughout hospital course to assist with symptom management clarification of treatment goals. . Attestation To help prompt me to consider important information that might be impacting today's encounter and assessment, information from prior notes written by myself or my colleagues may have been "brought forward" into today's note. My signature on this note, however, is an attestation that I personally performed the exam, history, and/or decision-making noted today, and, unless otherwise indicated, the interactions with patient, family, and staff as well as the review of records all occurred today. I also attest that the listed assessment and stated plan reflect my best clinical judgment today based on the combination of historical information, prior notes, and today's exam/ interactions. When time spent is documented, it refers only to time spent today by the signer, or if indicated, combined time spent today by collaborating physician/nurse practitioner. Ramona Hilario Aug 04, 2017 12:38
--- NOTE | 2017-08-04 14:11 | HHI.IDPN ---
Subjective Subjective Remarks On high flow Or Not expectorating very SOB palliative got invol ed attempted to talk to Dr De Leon - [place] week clx form [facility] hospital with tressa Boykin PSAE and MAC (FEDERICO), sensitivities not availbale anion gap is high 16 today Antibiotics meropenem zyvox azithro Allergies: Coded Allergies: codeine (Unverified Allergy, Intermediate, HIVES, 07/26/17) phenobarbital (Unverified Allergy, Unknown, 07/26/17) Objective . Vital Signs Date Time Temp Pulse Resp B/P (MAP) Pulse Ox O2 Delivery O2 Flow Rate FiO2 08/04/17 13:00 93 08/04/17 13:00 93 30 161/71 (101) 86 08/04/17 12:30 86 08/04/17 12:30 86 32 163/77 (105) 96 08/04/17 12:00 98.9 85 33 152/72 (98) 89 08/04/17 12:00 85 08/04/17 10:30 82 26 156/74 (101) 92 08/04/17 10:30 82 08/04/17 10:00 80 27 169/79 (109) 96 08/04/17 10:00 80 08/04/17 09:30 75 08/04/17 09:30 75 25 159/74 (102) 96 08/04/17 09:00 75 23 150/70 (96) 98 08/04/17 09:00 75 08/04/17 08:42 78 08/04/17 08:42 78 22 137/63 (87) 98 08/04/17 08:30 95 27 168/75 (106) 94 08/04/17 08:30 95 08/04/17 08:16 93 High Flow Nasal Cannula 25.00 45 08/04/17 08:00 95 08/04/17 08:00 97.6 95 32 166/79 (108) 90 08/04/17 07:00 94 25.00 45 08/04/17 06:00 86 08/04/17 04:00 98.0 89 20 152/70 (97) 97 08/04/17 04:00 86 08/04/17 02:00 96 08/04/17 00:00 97.9 90 27 160/77 (104) 93 08/04/17 00:00 90 08/03/17 22:00 97 08/03/17 22:00 97 37 172/79 (110) 87 08/03/17 20:00 96 08/03/17 19:20 95 High Flow Nasal Cannula 25.00 40 08/03/17 19:00 92 Railroad Mechanic 25.00 50 08/03/17 18:00 97 36 90 08/03/17 18:00 97 08/03/17 17:27 97 34 167/78 (107) 90 08/03/17 17:00 96 26 91 08/03/17 16:00 91 29 97 08/03/17 16:00 91 . Laboratory Tests Test 08/03/17 14:37 08/04/17 06:02 Blood Urea Nitrogen 16 MG/DL 19 MG/DL Creatinine 0.83 MG/DL 0.76 MG/DL Random Glucose 124 MG/DL 146 MG/DL Calcium Level 7.7 MG/DL 7.8 MG/DL Sodium Level 138 MEQ/L 139 MEQ/L Potassium Level 2.7 MEQ/L 3.3 MEQ/L Chloride Level 99 MEQ/L 99 MEQ/L Carbon Dioxide Level 28.5 MEQ/L 24.5 MEQ/L Anion Gap 11 MEQ/L 16 MEQ/L Estimat Glomerular Filtration Rate 66 ML/MIN 73 ML/MIN Imaging Last Impressions Chest X-Ray 07/30/17 0600 Signed Impressions: CONCLUSION: Mild interstitial prominence right greater than left. Gall Bladder Ultrasound 07/28/17 0000 Signed Impressions: CONCLUSION: Unremarkable sonographic appearance of the right upper quadrant Chest CT 07/27/17 0000 Signed Impressions: CONCLUSION: 1. Examination quality is degraded by respiratory motion artifact. There is ab normal interstitial lung disease bilaterally with features suggestive of idiopa thic pulmonary fibrosis or UIP. 2. There is a new small left pleural effusion. 3. Severe atherosclerotic disease and coronary artery calcification. Physical Exam CONSTITUTIONAL/GENERAL: This is an adequately nourished patient, in no apparent distress. on high flow O2 TUBES/LINES/DRAINS: SKIN: No jaundice, rashes, or lesions. Skin temperature appropriate. Not diaphoretic. SKIN is dry with extensive solar elastosis lesion and excoriations. NO rash CARDIOVASCULAR: Regular rate and rhythm without murmurs, gallops, or rubs. No JVD. Peripheral pulses symmetric. RESPIRATORY/CHEST: Symmetric, unlabored respirations.B/l fine crackles to auscultation. Breath sounds equal bilaterally. GASTROINTESTINAL: Abdomen soft, non-tender, moderately distended. No hepato- splenomegaly, or palpable masses. No guarding. Bowel sounds present. MUSCULOSKELETAL: Extremities without clubbing, cyanosis, or edema. NEUROLOGICAL: more awake, opens eyes and makes eye contact Assessment & Plan Remarks COPD/IPF, advanced chronic resp insufficiency RLL PNA Prominent hypoxia on ABG Also a non tuberculous mycobacterial pulmonary infection tx was discussed with pt's son in presence of palliative care team: he wants time to make decision if to start MAC tx PSAE PNA recent Respiratory failure, improved prognosis is poor 2/2 underlying advanced pulmonary pathology family dows not want FEDERICO tx at this point sputum clx if feasible cont meropenem, zyvox will chk lactic acid since AG wided and zyvox can potentially cause lactic acidodis cont azithromycin dw RN dw son @ b/s Adelia Jaramillo MD Aug 04, 2017 14:11
--- NOTE | 2017-08-04 15:29 | HHI.PR ---
Subjective Remarks Resting comfortably in bed closed eyes, Discussed with the nurse Per family and palliative care stating patient does not have much longer and they do not want to change anything of the current situation Objective Vitals Vital Signs Date Time Temp Pulse Resp B/P (MAP) Pulse Ox O2 Delivery O2 Flow Rate FiO2 08/04/17 14:00 91 08/04/17 13:00 93 08/04/17 13:00 93 30 161/71 (101) 86 08/04/17 12:30 86 08/04/17 12:30 86 32 163/77 (105) 96 08/04/17 12:00 98.9 85 33 152/72 (98) 89 08/04/17 12:00 85 08/04/17 10:30 82 26 156/74 (101) 92 08/04/17 10:30 82 08/04/17 10:00 80 27 169/79 (109) 96 08/04/17 10:00 80 08/04/17 09:30 75 08/04/17 09:30 75 25 159/74 (102) 96 08/04/17 09:00 75 23 150/70 (96) 98 08/04/17 09:00 75 08/04/17 08:42 78 08/04/17 08:42 78 22 137/63 (87) 98 08/04/17 08:30 95 27 168/75 (106) 94 08/04/17 08:30 95 08/04/17 08:16 93 High Flow Nasal Cannula 25.00 45 08/04/17 08:00 95 08/04/17 08:00 97.6 95 32 166/79 (108) 90 08/04/17 07:00 94 25.00 45 08/04/17 06:00 86 08/04/17 04:00 98.0 89 20 152/70 (97) 97 08/04/17 04:00 86 08/04/17 02:00 96 08/04/17 00:00 97.9 90 27 160/77 (104) 93 08/04/17 00:00 90 08/03/17 22:00 97 08/03/17 22:00 97 37 172/79 (110) 87 08/03/17 20:00 96 08/03/17 19:20 95 High Flow Nasal Cannula 25.00 40 08/03/17 19:00 92 Treasury Assistant 25.00 50 08/03/17 18:00 97 36 90 08/03/17 18:00 97 08/03/17 17:27 97 34 167/78 (107) 90 08/03/17 17:00 96 26 91 08/03/17 16:00 91 29 97 08/03/17 16:00 91 I/O 08/03/17 08/03/17 08/03/17 08/04/17 08/04/17 08/04/17 07:00 15:00 23:00 07:00 15:00 23:00 Intake Total 1050 ml 200 ml 1962 ml 50 ml Output Total 950 ml 900 ml Balance 100 ml 200 ml 1062 ml 50 ml Intake Oral 50 ml 200 ml 50 ml IV Total 1000 ml 200 ml 1762 ml Output Urine Total 950 ml 900 ml # Voids 3 6 6 # Bowel Movements 2 1 Result Diagram: 08/02/17 0229 08/04/17 0602 Objective Remarks GENERAL: Ill appearing 82 years old female well-developed patient, in no apparent distress. CARDIOVASCULAR: RRR, no gallops, or rubs. RESPIRATORY: Bilateral crackles GASTROINTESTINAL: Abdomen soft, non-tender, nondistended. Positive bowel sounds MUSCULOSKELETAL: Extremities without clubbing, cyanosis, or edema. Pedal pulses appreciated NEUROLOGICAL: Awake and alert. Moves all extremity. Normal speech.no focal neurological deficit A/P Problem List: (1) IPF (idiopathic pulmonary fibrosis) ICD Code: J84.112 - Idiopathic pulmonary fibrosis (2) HLD (hyperlipidemia) ICD Code: E78.5 - Hyperlipidemia, unspecified (3) Acute respiratory failure with hypoxia ICD Code: J96.01 - Acute respiratory failure with hypoxia Status: Acute (4) COPD exacerbation ICD Code: J44.1 - Chronic obstructive pulmonary disease with (acute) exacerbation Status: Acute Assessment and Plan 08/02 patient is being desaturating today first ABG showed what it looks like venous blood drawn, I repeated the ABG and it came back within fairly normal limits, continue on antibiotic will monitor closely I discussed with the nurse, D/W ID 08/03: No acute issue currently stable breathing comfortably on high flow oxygen, Blood pressure is still uncontrolled I increase her amlodipine and added clonidine as needed for further blood pressure control Discussed with the son no decision has been made yet is awaiting to talk to the intelligence officer and palliative care 08/04: Continue comfort care measures, continue following with palliative care A/P: COPD/IPF, advanced chronic resp insufficiency RLL PNA PSAE PNA recent on antibiotics per infectious disease Continue on Mucinex twice daily, Solu-Medrol IV, Symbicort Pulmonology ff. Duo nebs as needed and schedule high risk for worsening respiratory status. Known pulmonary fibrosis and advanced COPD. poor prognosis. Palliative care following. Continue scheduled Ativan and IV Ativan as needed to help with agitation symptoms. Recent sputum cultures from the [facility] is positive for MAC. Infectious disease discussed with family. They want to hold off treatment for MAC for now. Hyperlipidemia continue on home medications Hypertension continue on home medications Depression anxiety resume home medication Renal insufficiency/dehydration -Follow renal functions GI prophylaxis with Protonix DVT prophylaxis with Lovenox Discussed with RN and patient and family Nabeel Ugarte MD Aug 04, 2017 15:29
[2017-08-04] MEDS: AZITHROMYCIN INJ 500 MG in SODIUM CHLOR 0.9% 250 ML INJ 250 ML IV SCH (21:17)
[2017-08-04] MEDS: MONTELUKAST SODIUM 10 MG TAB PO SCH (21:18)
[2017-08-04] MEDS: ENOXAPARIN SODIUM 30 MG/0.3 ML SYRINGE SQ SCH (21:18)
[2017-08-05] VITALS: BP 160/75; PULSE 86; RESP 26; TEMP 97.9; O2SAT 99
[2017-08-05] MEDS: SODIUM CHLOR 0.9% 1000 ML INJ 1,000 ML IV SCH ×2 (00:29→11:14)
[2017-08-05 02:00] VITALS: PULSE 101
[2017-08-05 04:00] VITALS: BP 169/89; PULSE 91; RESP 27; TEMP 98.1; O2SAT 95
[2017-08-05] MEDS: NYSTATIN 100,000 U/GM PWD 15 GM BTL TOPICAL SCH ×2 (05:20→13:43)
[2017-08-05] MEDS: LORazepam 0.5 MG TAB PO SCH ×2 (05:20→13:42)
[2017-08-05 06:00] VITALS: PULSE 93
[2017-08-05 07:26] VITALS: O2SAT 95
[2017-08-05] MEDS: RESP: ALBUTEROL 2.5 MG/IPRATROPIUM 0.5 MG NEB (SCH) INH ×2 (07:26→12:56)
[2017-08-05 08:00] VITALS: BP 176/83; PULSE 96; RESP 26; TEMP 98.6; O2SAT 91
[2017-08-05] MEDS: methylPREDNISolone SOD SUCC 125 MG/2 ML VIAL IV PUSH SCH (08:51)
[2017-08-05] MEDS: ESTRADIOL 1 MG TAB PO SCH (08:52)
[2017-08-05] MEDS: PANTOPRAZOLE SOD 40 MG DELAYED RELEASE TAB PO SCH (08:53)
[2017-08-05] MEDS: guaiFENesin E.R. 600 MG TAB PO SCH (08:54)
[2017-08-05] MEDS: DOCUSATE SODIUM 50 MG/SENNA 8.6 MG TAB PO SCH (08:54)
[2017-08-05] MEDS: LINEZOLID 600 MG PREMIX 300 ML IV SCH (08:55)
[2017-08-05] MEDS: BUDESONIDE-FORMOTEROL 160/4.5 MCG INHALER INH SCH (08:55)
[2017-08-05] MEDS: SODIUM CHLORIDE 0.9% FLUSH 10 ML FLUSH IV FLUSH SCH (08:56)
[2017-08-05] MEDS: LABETALOL HCL 100 MG/20 ML VIAL IV PUSH PRN (09:06)
[2017-08-05] MEDS: MEROPENEM INJ 1,000 MG in SODIUM CHLORIDE 0.9% INJ 100 ML IV SCH (11:15)
--- NOTE | 2017-08-05 13:33 | HHI.DS ---
Discharge Summary Admission Date Jul 26, 2017 at 18:16 Discharge Date: Aug 05, 2017 Admitting Diagnosis acute hypoxic resp failure, COPD, near syncope (1) IPF (idiopathic pulmonary fibrosis) ICD Code: J84.112 - Idiopathic pulmonary fibrosis (2) HLD (hyperlipidemia) ICD Code: E78.5 - Hyperlipidemia, unspecified (3) Acute respiratory failure with hypoxia ICD Code: J96.01 - Acute respiratory failure with hypoxia Status: Acute (4) COPD exacerbation ICD Code: J44.1 - Chronic obstructive pulmonary disease with (acute) exacerbation Status: Acute Procedures See below Brief History - From Admission 82 yo female , pt of Dr De Leon with IPF/COPD/ home O2 12/09 recently diagnosed with PSAE PNA, improved on IV abx which were switched to oral abx presented with worsening resp smx;' SOB, increasing hypoxia and dry cough She is unable to expectorate she is on 6 L of O2 and her sats are 92 % CXR from yday showed new intra-alveolar infiltrate within the right lower lobe along with chronic interstitial changes she also co skin itching CBC/BMP: 08/02/17 0229 08/04/17 0602 Significant Findings Laboratory Tests Test 08/03/17 14:37 08/04/17 06:02 08/04/17 18:35 Random Glucose 124 MG/DL (74-106) 146 MG/DL (74-106) Calcium Level 7.7 MG/DL (8.5-10.1) 7.8 MG/DL (8.5-10.1) Potassium Level 2.7 MEQ/L (3.5-5.1) 3.3 MEQ/L (3.5-5.1) Estimat Glomerular Filtration Rate 66 ML/MIN (>89) 73 ML/MIN (>89) Blood Urea Nitrogen 19 MG/DL (7-18) Anion Gap 16 MEQ/L (5-15) PE at Discharge GENERAL: Ill appearing 82 years old female well-developed patient, in no apparent distress. CARDIOVASCULAR: RRR, no gallops, or rubs. RESPIRATORY: Bilateral crackles GASTROINTESTINAL: Abdomen soft, non-tender, nondistended. Positive bowel sounds MUSCULOSKELETAL: Extremities without clubbing, cyanosis, or edema. Pedal pulses appreciated NEUROLOGICAL: Awake and alert. Moves all extremity. Normal speech.no focal neurological deficit Hospital Course 82 years old she was admitted with respiratory failure right lung pneumonia with Pseudomonas renal failure dehydration, patient started on antibiotics Solu- Medrol, pulmonary consulted, however she continued to desaturate, palliative care consulted patient was DNR, multiple discussion with the family eventually decision was made to go with hospice care center I discussed with the son and daughter on multiple occasions including on the day of discharge, D/W complex case manager and palliative care and hospice agent Pt Condition on Discharge: Deteriorating Discharge Disposition: Hospice/Med Facility Discharge Time: > 30 minutes Discharge Instructions DIET: Follow Instructions for: Heart Healthy Diet Activities you can perform: See Additionl Instruction Other Activity Instructions: per hospice protocol Nabeel Ugarte MD Aug 05, 2017 13:33
[2017-08-05] MEDS: LORazepam 2 MG/ML VIAL IV PUSH PRN (14:43)
== END 2017-08-05 15:00 | disposition hospice, inpatient (51) | DRG 196 ==
LOC: NEPE 09:28 → NEDA 18:16 → N04B 20:25 → HIMN 07-29 14:35
PROVIDERS: ADMIT Hospitalist; ATTEND Hospitalist
DX: J84.112 Idiopathic pulmonary fibrosis (principal); J15.1 Pneumonia due to Pseudomonas; J96.01 Acute respiratory failure with hypoxia; N17.9 Acute kidney failure, unspecified; J44.0 Chronic obstructive pulmonary disease with (acute) lower respiratory infection; A31.0 Pulmonary mycobacterial infection; Z99.81 Dependence on supplemental oxygen; E11.9 Type 2 diabetes mellitus without complications; E86.0 Dehydration; J44.1 Chronic obstructive pulmonary disease with (acute) exacerbation; F32.9 Major depressive disorder, single episode, unspecified; E78.5 Hyperlipidemia, unspecified; F41.9 Anxiety disorder, unspecified; Z88.5 Allergy status to narcotic agent; Z88.8 Allergy status to other drugs, medicaments and biological substances; Z79.2 Long term (current) use of antibiotics; Z79.52 Long term (current) use of systemic steroids; Z79.899 Other long term (current) drug therapy; Z87.891 Personal history of nicotine dependence; Z66 Do not resuscitate; Z51.5 Encounter for palliative care
CPT/HCPCS: 36600; 71045; 71250; 76705; 80048; 80053; 82805; 82948; 83036; 83605; 83735; 84100; 84132; 84155; 84439; 84443; 85025; 85027; 87015; 87040; 94002; 94003; 94640; 94664; 99285; J0456; J0692; J1650; J2020; J2060; J2185; J2930; J3480; J7030; J7050; J7512; Q0163